=== PATIENT | female | born 1975 | race Two or more races ===

== ENCOUNTER 2020-05-17 08:23 | Inpatient (IN) | payer OTHER ==
[~2020-05-17] VITALS: Ht 167.6 cm; Wt 59.0 kg
[2020-05-17 08:25] VITALS: BP 157/99
--- NOTE | 2020-05-17 08:25 | NUR ---
ED Nurse Note: Pt brought in by ambulance from [facility] d/t 60 second seizure witnessed by staff. Pt A+Ox3 upon arrival. Per EMS, staff at [facility] denies head trauma/oral trauma. Pt has no hx of seizures, but is on multiple psych medications. Respirations even and unlabored on room air. Hr elevated on the monitor @ 110 beats/min. All other vitals stable as documented. Seizure precautions in place.
--- NOTE | 2020-05-17 08:27 | Emergency Room Report ---
History of Present Illness General Chief Complaint: Seizure Source: Patient, EMS Present Illness HPI Disclaimer: Please note that this report is being documented using DRAGON technology. This can lead to erroneous entry secondary to incorrect interpretation by the dictating instrument. HPI: 44-year-old female history of psychiatric disorder presents for evaluation of seizure-like activity. EMS picked patient up from [facility]. Staff stated the patient was somnolent and difficult to arouse this morning. In the room she was clenching her fist and then had a brief 1 minute episode of convulsion-like behavior mostly in the upper extremities. No trauma was reported as this occurred on the patient's bed. She was somnolent and lethargic following this shaking. No incontinence. No history of seizures. No reported alcohol or drug use. Patient is somewhat slow to respond and appears confused though states she is not in any pain or takes any medication for seizures. Denies prior history of seizures. Denies numbness or tingling. Is able to move all extremities. PMH: Schizophrenia PSH: Reviewed Allergies: Reviewed Social Hx: Denied Allergies: Coded Allergies: No Known Allergies (Unverified , 05/17/20) COVID-19 Screening Contact w/high risk pt: No Experienced COVID-19 symptoms?: No COVID-19 Testing performed [employer]: No Review of Systems All Other Systems: negative except mentioned in HPI Physical Exam Vital Signs Date Time Temp Pulse Resp B/P (MAP) Pulse Ox O2 Delivery O2 Flow Rate FiO2 05/17/20 08:18 98.8 80 16 128/58 (81) 100 Room Air General: Awake, slow to respond, GCS 15 HEENT: NC/AT. EOMI. PERRLA. Small tongue abrasion Cardiovascular: RRR. S1 and S2 normal. No murmur appreciated Resp: Normal work of breathing. No cough, wheezing or crackles appreciated Abdomen: Abdomen is soft, nondistended. Nontender Skin: Intact. No abrasions, laceration or rash over the exposed skin MSK: Normal tone and bulk. Moving all extremities. No obvious deformity. Neuro: Awake, slow to respond though mentating appropriately. GCS 15 Medical Decision Making Diagnostic Impression: Primary Impression: Opiate use Additional Impressions: Seizure-like activity UTI (urinary tract infection) Altered mental status ER Course There is a 44-year-old female with history of schizophrenia presenting from [facility] for convulsions. Differential includes was not limited to seizure, electrolyte abnormality, intracranial injury, toxicologic affect, psychiatric disorder among others. Patient does have a small abrasion at the tip of her tongue that does not require repair. No incontinence and no prior history of seizures. Accu-Chek on arrival 117. EKG is nonischemic. As this may be a first-time seizure CT head was ordered. No obvious injury identified. Labs showed questionable urinary tract infection and the patient was treated with Keflex. Also positive for opiates on tox screen. Discussed with patient's [facility], [facility], who stated her mentation has been off since returning from [facility] yesterday. States she is more lethargic and has never had a seizure before today. She seems more confused than usual. Was unable to ambulate this morning. Patient remains tachycardic and seemingly confused. May be effects of opiates however she has no signs of respiratory depression. Will admit for further monitoring and treatment. Admitted to panel physician, Dr. Fajardo Laboratory Tests Test 05/17/20 08:27 05/17/20 08:30 White Blood Count 14.7 K/UL (4.8-10.8) H Red Blood Count 4.40 M/UL (4.20-5.40) Hemoglobin 10.2 G/DL (12.0-16.0) L Hematocrit 34.7 % (37.0-47.0) L Mean Corpuscular Volume 79 FL (80-99) L Mean Corpuscular Hemoglobin 23.1 PG (27.0-31.0) L Mean Corpuscular Hemoglobin Concent 29.3 G/DL (32.0-36.0) L Red Cell Distribution Width 19.8 % (11.6-14.8) H Platelet Count 495 K/UL (150-450) H Mean Platelet Volume 6.2 FL (6.5-10.1) L Neutrophils (%) (Auto) % (45.0-75.0) Lymphocytes (%) (Auto) % (20.0-45.0) Monocytes (%) (Auto) % (1.0-10.0) Eosinophils (%) (Auto) % (0.0-3.0) Basophils (%) (Auto) % (0.0-2.0) Differential Total Cells Counted 100 Neutrophils % (Manual) 83 % (45-75) H Lymphocytes % (Manual) 10 % (20-45) L Monocytes % (Manual) 7 % (1-10) Eosinophils % (Manual) 0 % (0-3) Basophils % (Manual) 0 % (0-2) Band Neutrophils 0 % (0-8) Platelet Estimate Adequate Platelet Morphology Normal Hypochromasia 1+ Anisocytosis 2+ Sodium Level 136 MMOL/L (136-145) Potassium Level 3.5 MMOL/L (3.5-5.1) Chloride Level 100 MMOL/L (98-107) Carbon Dioxide Level 27 MMOL/L (21-32) Anion Gap 9 mmol/L (5-15) Blood Urea Nitrogen 13 mg/dL (7-18) Creatinine 0.8 MG/DL (0.55-1.30) Estimated Glomerular Filtration Rate > 60 mL/min (>60) Glucose Level 124 MG/DL (74-106) H Calcium Level 8.9 MG/DL (8.5-10.1) Total Bilirubin 0.3 MG/DL (0.2-1.0) Aspartate Amino Transferase (AST) 20 U/L (15-37) Alanine Aminotransferase (ALT) 23 U/L (12-78) Alkaline Phosphatase 161 U/L (46-116) H Troponin I 0.007 ng/mL (0.000-0.056) Total Protein 6.9 G/DL (6.4-8.2) Albumin 2.7 G/DL (3.4-5.0) L Globulin 4.2 g/dL Albumin/Globulin Ratio 0.6 (1.0-2.7) L Salicylates Level 0.7 ug/mL (2.8-20) L Acetaminophen Level < 2 MCG/ML (10-30) L Serum Alcohol < 3 mg/dL Urine Color Yellow Urine Appearance Slightly cloudy Urine pH 5 (4.5-8.0) Urine Specific [place] 1.025 (1.005-1.035) Urine Protein 2+ (NEGATIVE) H Urine Glucose (UA) Negative (NEGATIVE) Urine Ketones 1+ (NEGATIVE) H Urine Blood 1+ (NEGATIVE) H Urine Nitrite Negative (NEGATIVE) Urine Bilirubin Negative (NEGATIVE) Urine Urobilinogen 1 MG/DL (0.0-1.0) H Urine Leukocyte Esterase 2+ (NEGATIVE) H Urine RBC 0-2 /HPF (0 - 2) Urine WBC 5-10 /HPF (0 - 2) H Urine Squamous Epithelial Cells Many /LPF (NONE/OCC) H Urine Bacteria Few /HPF (NONE) Urine HCG, Qualitative Negative (NEGATIVE) Urine Opiates Screen Positive (NEGATIVE) H Urine Barbiturates Screen Negative (NEGATIVE) Phencyclidine (PCP) Screen Negative (NEGATIVE) Urine Amphetamines Screen Negative (NEGATIVE) Urine Benzodiazepines Screen Negative (NEGATIVE) Urine Cocaine Screen Negative (NEGATIVE) Urine Marijuana (THC) Screen Negative (NEGATIVE) EKG Diagnostic Results Troponin ordered: Yes When was troponin ordered?: May 17, 2020 EKG Time: 08:33 Rate: normal Rhythm: NSR ST Segments: no acute changes Other Impression Sinus rhythm, normal axis, normal intervals, no ST segment changes, QTC 449 ms Rhythm Strip Diag. Results Rhythm Strip Time: 08:33 EP Interpretation: yes Rate: 90s Rhythm: NSR, no PVC's, no ectopy Last Vital Signs Date Time Temp Pulse Resp B/P (MAP) Pulse Ox O2 Delivery O2 Flow Rate FiO2 05/17/20 08:18 98.8 80 16 128/58 (81) 100 Room Air Disposition: ADMITTED INPATIENT Condition: Stable Scripts Levetiracetam (KEPPRA) 500 Mg Tablet 500 MG ORAL EVERY 12 HOURS, #60 TAB 0 Refills Prov: Jordin Andrews MD 05/17/20 Cephalexin* (KEFLEX*) 500 Mg Capsule 500 MG ORAL EVERY 12 HOURS, #14 CAP 0 Refills Prov: Jordin Andrews MD 05/17/20 Jordin Andrews MD May 17, 2020 08:27
[2020-05-17] MEDS ORDERED: levETIRAcetam 1,000mg/NS100ml 100 ML IVPB ONE ×2 (08:30→08:38)
[2020-05-17] MEDS ORDERED: LEVETIRACETAM IVPB ONE (08:37)
[2020-05-17] MEDS ORDERED: [UNRECOGNIZED DRUG - OTHER] IVPB ONE (08:37)
[2020-05-17 08:46] LABS: HEMATOCRIT 34.7 % (37.0-47.0); HEMOGLOBIN 10.2 G/DL (12.0-16.0); MEAN CORPUSCULAR VOLUME 79 FL (80-99); PLATELET COUNT 495 K/UL (150-450); RED CELL DISTRIBUTION WIDTH 19.8 % (11.6-14.8); WHITE BLOOD COUNT 14.7 K/UL (4.8-10.8)
[2020-05-17 08:59] LABS: ANION GAP 9 mmol/L (5-15); BLOOD UREA NITROGEN 13 mg/dL (7-18); CALCIUM 8.9 MG/DL (8.5-10.1); CARBON DIOXIDE 27 MMOL/L (21-32); CHLORIDE 100 MMOL/L (98-107); CREATININE 0.8 MG/DL (0.55-1.30); POTASSIUM 3.5 MMOL/L (3.5-5.1); SODIUM 136 MMOL/L (136-145)
[2020-05-17 09:03] LABS: ALANINE AMINOTRANSFERASE 23 U/L (12-78); ALBUMIN 2.7 G/DL (3.4-5.0); ALBUMIN/GLOBULIN RATIO 0.6 (1.0-2.7); ALKALINE PHOSPHATASE 161 U/L (46-116); ASPARTATE AMINO TRANSFERASE 20 U/L (15-37); BILIRUBIN,TOTAL 0.3 MG/DL (0.2-1.0)
[2020-05-17 09:15] LABS: APPEARANCE,URINE SLIGHTLY CLOUDY; BILIRUBIN, URINE NEGATIVE (NEGATIVE); GLUCOSE, URINE (UA) NEGATIVE (NEGATIVE); KETONES,URINE 1+ (NEGATIVE); LEUKOCYTE ESTERASE ,URINE 2+ (NEGATIVE); NITRITE,URINE NEGATIVE (NEGATIVE); PH,URINE 5 (4.5-8.0); PROTEIN,URINE 2+ (NEGATIVE); UROBILINOGEN,URINE 1 MG/DL (0.0-1.0)
[2020-05-17 09:25] LABS: COLOR,URINE YELLOW
--- NOTE | 2020-05-17 09:31 | NUR ---
ED Nurse Note: Pt diaphoretic and HR increased to 118. Pt still A+Ox3. ED MD @ bedside aware.
[2020-05-17 10:30] VITALS: BP 148/92
[2020-05-17] MEDS ORDERED: CEPHALEXIN500 MG ORAL (12:19)
[2020-05-17] MEDS ORDERED: KEPPRA500 M4 ORAL (12:19)
--- NOTE | 2020-05-17 12:24 | NUR ---
ED Nurse Note: Digna Larsen, pt's sister [phone] Julia Mac, ict managers [phone]
[2020-05-17 12:30] VITALS: BP_SYST 141; BP_SYST 161; BP_DIAS 84
[2020-05-17] MEDS ORDERED: Cephalexin 500mg cap ORAL ONE (12:30)
[2020-05-17 14:30] VITALS: BP 167/88
--- NOTE | 2020-05-17 15:32 | Diagnostic Imaging Report ---
Indications: Seizure Technique: Spiral acquisitions obtained through the brain. Angled axial and coronal 5 x 5 mm slices were reconstructed. Total dose length product 1098 mGycm. CTDI vol(s) 53 mGy. Dose reduction achieved using automated exposure control Comparison: None. Findings: Acute intracranial hemorrhage or edema. No mass effect or midline shift. Mild prominence of the extra-axial CSF spaces. Mastoids are clear. The calvarium is intact. Visualized orbits and sinuses are unremarkable. The tucker-white differentiation is normal Impression: Negative for acute intracranial bleed or mass effect This agrees with the preliminary interpretation provided by Dr. Zabala The CT scanner at [facility] is accredited by the [employer] and the scans are performed using protocols designed to limit radiation exposure to as low as reasonably achievable to attain images of sufficient resolution adequate for diagnostic evaluation.
--- NOTE | 2020-05-17 16:13 | NUR ---
ED Nurse Note: Report given to DIANE Mcfadden on 2E.
--- NOTE | 2020-05-17 16:25 | NUR ---
ED Nurse Note: pt transferred safely to 2E on the monitor.
--- NOTE | 2020-05-17 17:17 | NUR ---
NURSE NOTES: Recvd patient report from Katherine LARA-RN. Pt arrived tot he floor at 1645 via [facility]. Admitting Dr. Fajardo DX: Seizures. Pt was placed on cardiac tech, SR noted HR 85. Pt states no history of seizures. Pad rails padded. Seizure and fall precautions maintained. Pt is on room air with no sign of sob or resp distress with O2 sat 95%. Pt is c/o bilat leg pain 10/10. Skin was assessed, no areas of concern noted. Pt is verbally expressive but answers are delayed. Pt appears AOx4 and able to answer questions appropriately. Only home med per patient is for schizophrenia but does not remember the name of medication. Contacted DR Fajardo for admitting orders. VSS. Bed in lowest locked position. call light within reach, awaiting new orders.
--- NOTE | 2020-05-17 17:45 | History and Physical Report ---
DATE OF ADMISSION: 05/17/2020 REASON FOR ADMISSION: Seizures. HISTORY OF PRESENT ILLNESS: The patient is a 44-year-old female with a history of psychiatric disorder, brought in for possible seizures. The patient was noted to be somnolent, difficult to arouse. The patient was apparently clenching fists and was noted to have 1 minute convulsions. No history of prior seizures. No alcohol use. PAST MEDICAL HISTORY: Schizophrenia. MEDICATIONS: Reviewed. SOCIAL HISTORY: Resides in a [facility]. ALLERGIES: None reported. REVIEW OF SYSTEMS: Difficult to obtain. PHYSICAL EXAMINATION: GENERAL: A well-developed female. The patient is somewhat tachycardic. VITAL SIGNS: Heart rate 123, blood pressure 167/88, temperature 98.3. HEENT: Negative. NECK: Supple. LUNGS: Tachycardia. ABDOMEN: Soft, nontender. EXTREMITIES: No edema. NEUROLOGICAL: Somewhat confused. LABORATORY DATA: Reviewed. White count 14.7, hemoglobin 10.2. Electrolytes fairly negative. Albumin is 2.7. Head CT negative for intracranial bleed. IMPRESSION: 1. New-onset seizure of unclear etiology. 2. Leukocytosis of unclear etiology. 3. Tox screen negative with the exception of opioids. 4. Sinus tachycardia. 5. Schizophrenia. RECOMMENDATIONS: The patient is given Keppra. We will continue seizure precautions. EEG. Psychiatric evaluation. Ativan p.r.n. Stabilize and discharge the patient back to [facility] versus intermediate. Maikel Fajardo M.D. DR: OLIVIA JOB#: [id number] CC: DARYL
[2020-05-17] MEDS ORDERED: LORazepam Inj 2mg/ml 1ml IV PRN (19:00)
--- NOTE | 2020-05-17 19:45 | NUR ---
NURSE NOTES: The patient is alert and able to communicate her needs with a slurry voice. He does not seem to be in any acute distress and is on room air with resp even and unlabored. The skin is intact she was help with turning and repositioning as indicated. The bed in low level and call light within esy reach. will continue to monitor as indicated
[2020-05-17 20:00] VITALS: BP 151/87
[2020-05-17] MEDS: Cefepime HCl 1 GM in D5W 55 ML IVPB SCH (21:17)
[2020-05-18] VITALS: BP 142/71
--- NOTE | 2020-05-18 00:07 | Psychiatry Consultation ---
Psychiatry Consultation Psychiatry Consultation Chief Complaint: Seizure History of Present Illness: 44-year-old female with a history of opiate dependence, depression who has been admitted to the hospital for medical stabilization. She has had seizure activity. Patient is more alert today and able to answer simple questions, less confusion. forgetful. PAST PSYCHIATRIC HISTORY: Depression, anxiety, cognitive impairment. PAST MEDICAL HISTORY: Seizure disorder, schizophrenia, pneumonia. ALLERGIES: No known drug allergies. SUBSTANCE ABUSE HISTORY: No known history of illicit drug use or alcohol. MENTAL STATUS EXAMINATION: The patient has waxing and waning consciousness. Mood is disoriented to situation. Mood is neutral to anxious. Affect is constricted, congruent with mood. Thought process is concrete. Thought content, no suicidal or homicidal ideation. Cognition is impaired. Insight and judgment is impaired. ASSESSMENT: [place] I Acute toxic encephalopathy due to UTI and pneumonia. Schizophrenia. [place] II Deferred. [place] III Seizure, UTI, and pneumonia. [place] IV Low. [place] V 20. PLAN: 1. Low-dose of antipsychotics. 2. Ativan p.r.n. 3. We will continue to follow and readjust the medication Allergies: Coded Allergies: No Known Allergies (Unverified , 05/17/20) Medication History Scheduled Cephalexin* (Keflex*), 500 MG ORAL EVERY 12 HOURS Levetiracetam (Keppra), 500 MG ORAL EVERY 12 HOURS Objective Data Height (Feet): 5 Height (Inches): 6.00 Weight (Pounds): 130 Ana Lopez MD May 18, 2020 00:07
[2020-05-18 04:00] VITALS: BP 139/69
--- NOTE | 2020-05-18 05:40 | NUR ---
NURSE NOTES: Episodes of agitations and restless was noted but a calm environment was provided as indicated. she was also clean and dry. will continue to monitor
[2020-05-18 06:45] LABS: HEMATOCRIT 36.4 % (37.0-47.0); HEMOGLOBIN 10.4 G/DL (12.0-16.0); MEAN CORPUSCULAR VOLUME 80 FL (80-99); PLATELET COUNT 605 K/UL (150-450); RED BLOOD COUNT 4.55 M/UL (4.20-5.40); RED CELL DISTRIBUTION WIDTH 19.8 % (11.6-14.8); WHITE BLOOD COUNT 19.4 K/UL (4.8-10.8)
[2020-05-18 06:55] LABS: ANION GAP 12 mmol/L (5-15); BLOOD UREA NITROGEN 13 mg/dL (7-18); CALCIUM 8.5 MG/DL (8.5-10.1); CARBON DIOXIDE 24 MMOL/L (21-32); CHLORIDE 107 MMOL/L (98-107); CREATININE 0.8 MG/DL (0.55-1.30); POTASSIUM 3.1 MMOL/L (3.5-5.1); SODIUM 143 MMOL/L (136-145)
--- NOTE | 2020-05-18 07:10 | NUR ---
NURSE HAND-OFF REPORT: Important Events on Shift: Patient Status: Diet: Pending Orders: Pending Results/Labs: Pending MD notification: Latest Vital Signs: Temperature 98.7 , Pulse 124 , B/P 139 /69 , Respiratory Rate 18 , O2 SAT 97 , Room Air, O2 Flow Rate . Vital Sign Comment: EKG Rhythm: Sinus Tachycardia Rhythm change?: N MD Notified?: - MD Response: Latest Funez Fall Score: 70 Fall Risk: High Risk Safety Measures: Call light Within Reach, Bed Alarm Zone 1, Side Rails Side Rails x2, Bed position Low and Locked. Fall Precautions: Yellow Socks Yellow Gown Door Sign Patient Fall Education Report given to .
--- NOTE | 2020-05-18 07:36 | NUR ---
Patient was seen in bed in stabel. semifowlers position with seizure precaution measures in place. Bed was placed in lowest position with side rails up x3.
[2020-05-18 08:00] VITALS: BP 140/94
--- NOTE | 2020-05-18 08:20 | General Progress Note ---
Subjective Allergies: Coded Allergies: No Known Allergies (Unverified , 05/17/20) Subjective confused off oxygen psych noted Objective Last 24 Hour Vital Signs Date Time Temp Pulse Resp B/P (MAP) Pulse Ox O2 Delivery O2 Flow Rate FiO2 05/18/20 04:00 124 05/18/20 04:00 98.7 95 18 139/69 (92) 97 05/18/20 00:00 98.4 118 20 142/71 (94) 97 05/17/20 21:00 Room Air 05/17/20 20:00 124 05/17/20 20:00 99.1 118 21 151/87 (108) 97 05/17/20 16:46 Room Air 05/17/20 16:25 98.6 119 18 158/84 99 Room Air 05/17/20 14:30 98.3 123 18 167/88 98 Room Air 05/17/20 12:30 97.5 122 18 161/84 98 Room Air 05/17/20 10:30 97.9 118 18 148/92 97 Room Air 05/17/20 08:25 110 20 Room Air 05/17/20 08:25 98.5 110 20 157/99 99 Room Air Intake and Output 05/17/20 05/18/20 19:00 07:00 Intake Total 100 ml 120 ml Output Total 60 ml 320 ml Balance 40 ml -200 ml Intake Oral 120 ml IV Total 100 ml Output Urine Total 60 ml 320 ml # Voids 1 Laboratory Tests 05/17/20 08:27: White Blood Count 14.7H, Red Blood Count 4.40, Hemoglobin 10.2L, Hematocrit 34.7L, Mean Corpuscular Volume 79L, Mean Corpuscular Hemoglobin 23.1L, Mean Corpuscular Hemoglobin Concent 29.3L, Red Cell Distribution Width 19.8H, Platelet Count 495H, Mean Platelet Volume 6.2L, Neutrophils (%) (Auto) , Lymphocytes (%) (Auto) , Monocytes (%) (Auto) , Eosinophils (%) (Auto) , Basophils (%) (Auto) , Differential Total Cells Counted 100, Neutrophils % (Manual) 83H, Lymphocytes % (Manual) 10L, Monocytes % (Manual) 7, Eosinophils % (Manual) 0, Basophils % (Manual) 0, Band Neutrophils 0, Platelet Estimate Adequate, Platelet Morphology Normal, Hypochromasia 1+, Anisocytosis 2+, Sodium Level 136, Potassium Level 3.5, Chloride Level 100, Carbon Dioxide Level 27, Anion Gap 9, Blood Urea Nitrogen 13, Creatinine 0.8, Estimat Glomerular Filtration Rate > 60, Glucose Level 124H, Calcium Level 8.9, Total Bilirubin 0.3, Aspartate Amino Transf (AST/SGOT) 20, Alanine Aminotransferase (ALT/SGPT) 23, Alkaline Phosphatase 161H, Troponin I 0.007, Total Protein 6.9, Albumin 2.7L , Globulin 4.2, Albumin/Globulin Ratio 0.6L, Salicylates Level 0.7L, Acetaminop hen Level < 2L, Serum Alcohol < 3 05/17/20 08:30: Urine Color Yellow, Urine Appearance Slightly cloudy, Urine pH 5, Urine Specific [place] 1.025, Urine Protein 2+H, Urine Glucose (UA) Negative, Urine Ketones 1+H , Urine Blood 1+H, Urine Nitrite Negative, Urine Bilirubin Negative, Urine Urobilinogen 1H, Urine Leukocyte Esterase 2+H, Urine RBC 0-2, Urine WBC 5-10H, Urine Squamous Epithelial Cells ManyH, Urine Bacteria Few, Urine HCG, Qualitative Negative, Urine Opiates Screen PositiveH, Urine Barbiturates Screen Negative, Phencyclidine (PCP) Screen Negative, Urine Amphetamines Screen Negative, Urine Benzodiazepines Screen Negative, Urine Cocaine Screen Negative, Urine Marijuana (THC) Screen Negative 05/18/20 05:31: White Blood Count 19.4H, Red Blood Count 4.55, Hemoglobin 10.4L, Hematocrit 36.4L, Mean Corpuscular Volume 80, Mean Corpuscular Hemoglobin 22.9L, Mean Corpuscular Hemoglobin Concent 28.6L, Red Cell Distribution Width 19.8H, Platelet Count 605H, Mean Platelet Volume 6.0L, Neutrophils (%) (Auto) , Lymphocytes (%) (Auto) , Monocytes (%) (Auto) , Eosinophils (%) (Auto) , Basophils (%) (Auto) , Neutrophils % (Manual) [Pending], Lymphocytes % (Manual) [Pending], Platelet Estimate [Pending], Platelet Morphology [Pending], Sodium Level 143, Potassium Level 3.1L, Chloride Level 107, Carbon Dioxide Level 24, Anion Gap 12, Blood Urea Nitrogen 13, Creatinine 0.8, Estimat Glomerular F iltration Rate > 60, Glucose Level 115H, Calcium Level 8.5 Height (Feet): 5 Height (Inches): 6.00 Weight (Pounds): 130 Objective WDWN NAD clear breath sounds bilaterally without rhonchi or wheeze [id number] without MRG NABS nontender no HSM no CCE confused reduced ROM Assessment/Plan Assessment/Plan: schizophrenia seizure toxic met encephalopathy elevated WBC PLAN ID to see antibiotics seizure meds and precautions psych follow up impression, plan, and exam edited and reviewed in detail care discussed with Maikel Walters MD May 18, 2020 08:20
[2020-05-18] MEDS: Cefepime HCl 1 GM in D5W 55 ML IVPB SCH ×2 (08:43→20:20)
[2020-05-18] MEDS ORDERED: Varibar Honey 250ml MC PRN (09:30)
[2020-05-18] MEDS ORDERED: Varibar Thin Liquid powder 148gm MC PRN (09:30)
[2020-05-18] MEDS ORDERED: Varibar Pudding 230ml MC PRN (09:30)
[2020-05-18] MEDS ORDERED: Varibar Nectar 240ml MC PRN (09:30)
--- NOTE | 2020-05-18 09:55 | NUR ---
PT EVALUATION NOTE Patient seen for initial evaluation and treatment initiated. Patient presents with generalized weakness and decreased balance and safety awareness which impairs patient's ability to perform mobility tasks safely. Patient is at high risk for falls. Patient requires max assist for bed mobility and transfers. Patient able to take several small steps with assist, poor balance. Patient will benefit from skilled inpatient PT intervention to improve strength and postural stability to improve level of functional mobility and to decrease fall risk. Recommend discharge to SNF vs return to [facility] depending on patient's progress once medically cleared by MD. Addendum: 05/18/20 at 1057 by LORETTA SANCHEZ PT Amended: Links added.
[2020-05-18] MEDS: Vancomycin 1gm in D5W 275ml IVPB SCH ×2 (10:38→23:21)
[2020-05-18 12:00] VITALS: BP 121/85
--- NOTE | 2020-05-18 12:07 | NUR ---
NURSE NOTES: Spoke to patients next of kin Digna Stanford over phone about patients condition, medications being given and todays plan for the patient.
--- NOTE | 2020-05-18 12:45 | Consultation ---
DATE OF CONSULTATION: 05/18/2020 INFECTIOUS DISEASE CONSULTATION CONSULTING PHYSICIAN: Melvin Rabago MD. REFERRING PHYSICIAN: Maikel Fajardo MD. REASON FOR CONSULTATION: Leukocytosis. HISTORY OF PRESENTING ILLNESS: This is a 44-year-old lady with history of schizophrenia who came in for possible seizures. She was found to have leukocytosis and an Infectious Diseases consultation has been obtained for antibiotics. PAST MEDICAL HISTORY: History of schizophrenia. SOCIAL HISTORY: Unknown. FAMILY HISTORY: Unknown. REVIEW OF SYSTEMS: Unable to obtain currently. MEDICATIONS: As an inpatient, she is on IV vancomycin, Protonix, cefepime, Keppra, lorazepam, Mylanta, Tylenol, Ativan. ALLERGIES: No known drug allergies. PHYSICAL EXAMINATION: VITAL SIGNS: Temperature 98.7, T-max of 99.1, pulse of 121, respiratory rate of 18, blood pressure of 139/69. O2 saturation of 97% on room air. HEENT: Pupils are equally reactive to light and accommodation. Mouth appears clean without thrush. NECK: Supple. No adenopathy. No JVD. CARDIOVASCULAR: She is tachycardic. No murmurs. LUNGS: Clear to auscultation bilaterally. No crackles. No wheezes. ABDOMEN: Soft, nontender. No organomegaly. EXTREMITIES: No cyanosis, no clubbing, no edema. LABORATORY DATA: White count 19.4, hemoglobin 10.4, hematocrit 36.4, MCV 80, platelet count 605,000. Neutrophils of 84%. Sodium 143, potassium 3.1, chloride 107, bicarb 24, BUN 13, creatinine 0.8. Glucose 115. Calcium 8.5. Total bilirubin 0.3, AST 20, ALT 23, alkaline phosphatase 161. Troponin 0.007. Total protein 6.9, albumin 2.7. UA showing 5 to 10 white cells. Urine cultures are negative. CT head showing negative for bleed or mass effect. ASSESSMENT: This is a 44-year-old lady with history of schizophrenia, who comes in and is found to have increasing leukocytosis could be secondary to, 1. Urinary tract infection. 2. Would like to rule out pneumonia as a possibility. 3. History of schizophrenia. PLAN: 1. Continue IV vancomycin and cefepime. 2. We will order chest x-ray. 3. We will follow up on blood cultures and urine culture. I would like to thank Dr. Fajardo for this consultation. Melvin Rabago M.D. DR: JOCE JOB#: [id number] CC:
--- NOTE | 2020-05-18 13:38 | NUR ---
RADIOLOGY DEPT., CHEST X-RAY DONE.-P.DYE
--- NOTE | 2020-05-18 13:40 | NUR ---
NURSE NOTES: Patient given prn Ativan due to seizure activity, patient was seen trembling and stating, "I am having a seizure". Seizure precautions and measures in place.
--- NOTE | 2020-05-18 15:14 | Diagnostic Imaging Report ---
Indication: Cough Technique: One view of the chest Comparison: none Findings: Low lung volumes. There is infiltrate at the left lung base. There is also likely some atelectasis. The heart size is normal. Impression: Left basilar infiltrate and atelectasis
[2020-05-18 16:00] VITALS: BP 140/89
--- NOTE | 2020-05-18 18:37 | NUR ---
Speech Pathology Note (Bedside Dysphagia Evaluation) Brief Note: Ms. Larsen is a 44 year old female who was brought in [facility] ED from boarding care due to seizure activity. CT head was negative, but found to be leukocytosis 14.7k with temperature of 98.8. Her BP is normal, and saturation is 100% on room air. Subsequently pt admitted [facility] for evaluation of seizure with leukocytosis yesterday. Today her temp range is 96.6~100.2 and leukocytosis is 19.4k. PMH: Schizophrenia Findings: Ms. Larsen is awake. She is oriented to self, name of hospital and year. Her responses are moderately delay but answer is quite accurate. She was able to follow simple commands. Her speech is clear, and voice is adamaris. She asked for water with ice. Given her approximately 150cc of iced water with a straw, she was able to drink without s.s of aspiration or dysphagia. I was reported that she had an episode of pocketing food today, but not coughing or choking. Interpretation: 1. Functional swallow without s.s of aspiration -Source of infection is less likely aspiration -Aspiration precaution when patient seizes 2. Pocketing food likely due to sedative/seizure medication Demian Garcia
--- NOTE | 2020-05-18 18:58 | NUR ---
NURSE NOTES: Patient had a slight fever of 100.[address] Fajardo was notified for pharmacological intervention and cooling measures were put in place. The patient was also hypertensive during 1200 and 1600 vitals. MD was also made aware and clonidine was ordered for SBP > 150.
--- NOTE | 2020-05-18 19:24 | NUR ---
NURSE HAND-OFF REPORT: Important Events on Shift:[patient had symptoms of seizure ativan given, patient had slight fever and cooling measures initiated, EEG done, Swallow evaluation done. ] Patient Status: [Stable/ full code] Diet: [Regular mechanical soft] Pending Orders: [N/A] Pending Results/Labs:[N/A] Pending MD notification:[N/A] Latest Vital Signs: Temperature 100.2 , Pulse 121 , B/P 140 /89 , Respiratory Rate 18 , O2 SAT 97 , Room Air, O2 Flow Rate . Vital Sign Comment: [] EKG Rhythm: Sinus Tachycardia Rhythm change?: N MD Notified?: - MD Response: Latest Funez Fall Score: 50 Fall Risk: High Risk Safety Measures: Call light Within Reach, Bed Alarm Zone 1, Side Rails Side Rails x2, Bed position Low and Locked. Fall Precautions: Yellow Socks Yellow Gown Door Sign Patient Fall Education Report given to [DIANE Vora].
--- NOTE | 2020-05-18 19:31 | NUR ---
NURSE NOTES: The patient is alert and able to communicate her needs and does not seem to be in any acute distress at this time. She is on room air with Resp even and unlabored. The resident has a Right AC 20g that is patent and asymptomatic. The skin is intact she was help with turning and repositioning as indicated. The bed in low level and call light within easy reach. will continue to monitor as indicated
[2020-05-18 20:00] VITALS: BP 130/90
[2020-05-18 21:21] LABS: CREATINE KINASE 1256 U/L (26-140)
[2020-05-19] VITALS: BP 138/91
[2020-05-19 04:00] VITALS: BP 160/101
[2020-05-19] MEDS: LORazepam Inj 2mg/ml 1ml IV PRN (04:49)
--- NOTE | 2020-05-19 05:00 | NUR ---
NURSE NOTES: The patient has episodes of anxiety and agitations and was unable to relaxed. She was given Ativan as indicated well tolerated. Will continue to monitor as indicated.
--- NOTE | 2020-05-19 07:20 | NUR ---
NURSE HAND-OFF REPORT: Important Events on Shift:Anxiety and agitations was noted Patient Status: Diet: Pending Orders: Pending Results/Labs: Pending MD notification: Latest Vital Signs: Temperature 98.8 , Pulse 119 , B/P 160 /101 , Respiratory Rate 20 , O2 SAT 97 , Room Air, O2 Flow Rate . Vital Sign Comment: EKG Rhythm: Sinus Tachycardia Rhythm change?: N MD Notified?: - MD Response: Latest Funez Fall Score: 50 Fall Risk: High Risk Safety Measures: Call light Within Reach, Bed Alarm Zone 1, Side Rails Side Rails x2, Bed position Low and Locked. Fall Precautions: Yellow Socks Yellow Gown Door Sign Patient Fall Education Report given to .
[2020-05-19 07:29] LABS: HEMATOCRIT 30.8 % (37.0-47.0); HEMOGLOBIN 9.4 G/DL (12.0-16.0); MEAN CORPUSCULAR VOLUME 73 FL (80-99); PLATELET COUNT 516 K/UL (150-450); RED CELL DISTRIBUTION WIDTH 20.2 % (11.6-14.8); WHITE BLOOD COUNT 21.2 K/UL (4.8-10.8)
--- NOTE | 2020-05-19 07:53 | NUR ---
NURSE NOTES: made am rounds, pt is asleep in bed. respiration is even and unlabored. no acute distress noted. side-rails padded for seizure precaution. call light within reach.
[2020-05-19 08:00] VITALS: BP 131/93
--- NOTE | 2020-05-19 08:30 | Consultation ---
DATE OF CONSULTATION: 05/18/2020 NEUROLOGICAL CONSULTATION CONSULTING PHYSICIAN: Del Golver MD. HISTORY OF PRESENT ILLNESS: This is a first [facility] admission for this 44-year-old woman, who is schizophrenic with a possible seizure beginning yesterday. The rest of the history is difficult to obtain. The patient apparently was noted at board and mcc, noted to be somnolent, difficult to arouse in the morning on May 17, 2020. She had clenched fist, with episode of convulsion in the upper extremity. She is somewhat somnolent and lethargic following shaking with no history of seizures. No alcohol or drug use. She is slow to respond, and confused. The patient had a head CT scan of the brain yesterday, which was negative for acute intracranial bleeding without contrast. it was normal. Yesterday, she did a CBC with a white count of 14,017 and platelet count is 795,000. There was a left shift. Today, the white count was 19,400. She then has a hypochromic anemia and left shit. The patient had urinalysis yesterday revealing 5 to 10 WBCs per high-powered field . EKG reveals the old sinus rhythm, cannot rule out inferior infarct, age indeterminate, anterior infarct age indeterminate. The patient was placed on cefepime 1 gram intravenous piggyback q.12 hours and given vancomycin 1 gram piggyback, given Protonix, lorazepam this morning. Apparently, she was seen by the staff shaking extremities , approximately 1 mg of Ativan was given at 12:20. She was also placed on Tylenol at 9 p.m.. No other history available. PAST MEDICAL HISTORY/PAST MEDICAL ILLNESSES: Schizophrenia . ALLERGIES: No known allergies noted. The patient had a psychiatric consultation today. possibly due to. The patient's chemistries on admission, sodium 136, the glucose 124, BUN of 13 with a creatinine of 0.8. Alkaline phosphatase is slightly elevated at 161. Calcium was normal magnesium not done. Today potassium is little low at 3.1. The troponin yesterday was 0.007. HABITS: No alcohol or tobacco use. REVIEW OF SYSTEMS: Unavailable. FAMILY HISTORY: Unavailable. REVIEW OF SYSTEMS: Unavailable. PHYSICAL EXAMINATION: GENERAL: She is a well-developed, cachectic appearing woman, lying in bed, lethargic, answers questions slowly. VITAL SIGNS: Temperature is 96.6, pulse is 114, respirations 19, blood pressure is 168/99. HEENT: Mucous membranes appear to be dry. NECK: The neck was stiff in all 4 directions. Carotids are +2 without bruits. There is no tenderness noted. LUNGS: Clear to auscultation. CARDIOVASCULAR: PMI is not felt. JVP is probably normal. The patient had normal S1, S2 physiologically split. There is no S3, S4, murmurs, or rubs appreciated. ABDOMEN: Bowel sounds are decreased. There is no tenderness masses organomegaly BACK: There is no tenderness to percussion or muscle spasm. EXTREMITIES: Pulses are +2. No edema noted. NEUROLOGIC: MENTAL STATUS: The patient is lethargic. answering questions. Doesnt know date knows she is in [facility]. CRANIAL NERVE EXAMINATION: CRANIAL NERVE II: Visual cline are intact to confrontation. CRANIAL NERVES III, IV, AND : Extraocular motility is full. Pupils are dilated and sluggishly reactive to light. CRANIAL NERVE V: Facial and corneal sensations are intact to fine touch. CRANIAL NERVE VII: Facial strength is 5/5 bilaterally. CRANIAL NERVE VIII: Auditory acuity is intact bilaterally. CRANIAL NERVES IX AND X: Not tested. CRANIAL NERVE XI: Sternocleidomastoid strength is 5/5. CRANIAL NERVE XII: Tongue protrudes in the midline partially without fasciculations or atrophy. MUSCLE EXAMINATION: Muscle bulk is symmetrically decreased to normal. Tone is normal. Strength, she can move arms legs flexed no movement i There is no grasp. Biceps, triceps, and the deltoids are probably normal. significant tremor was noted. Muscle tone in the legs was increased and it was fairly bilaterally symmetrical. Reflexes: Trace to +1 without clonus toes downgoing. IMPRESSION AND PLAN: The patient has metabolic encephalopathy related to her pneumonia, urinary problem and urinary tract infection as well as Ativan, which is going to earlier today. It is hard to say that she actually had a seizure, but she might also be postictal. The patient has a strong sympathetic response with some dilated pupils and diaphoresis, probably this is related to infection. The patient has not been on any antipsychotic drugs or do not have a history. Serotonin syndrome is unlikely as well as malignant neuroleptics syndrome. What I would do is, I am going to continue her keppra. Thepatient may had a pseudoseizure this afternoon which she allegedly did not lose consciousness. However what I would do is temporarily, I will place her on Keppra 500 mg b.i.d. I will get a serum calcium. Obviously, her pneumonia has to be aggressively reated 1. The plan is the patient's serum magnesium . 2. eeg. 3. CPK level. Del Glover MD DR: KOFI JOB#: [id number] CC: DARYL
[2020-05-19] MEDS: Cefepime HCl 1 GM in D5W 55 ML IVPB SCH (09:20)
[2020-05-19] MEDS: Vancomycin 1gm in D5W 275ml IVPB SCH (10:38)
--- NOTE | 2020-05-19 10:46 | NUR ---
CASE MANAGEMENT:REVIEW 44 YR OLD FEMALE BIBA FROM [facility] CC: SEIZURES SI: NEW ONSET SEIZURES LEUKOCYTOSIS. UTI 98.5 110 20 157/99 99% ON RA WBC+21.2 TCK+1256 IS: IV KEPPRA X1 1L NS BOLUS KEFLEX PO X1 : TO TELEMETRY UNIT PLAN: EEG PT EVAL SWALLOW EVAL SEIZURE PRECAUTIONS
--- NOTE | 2020-05-19 11:12 | Infectious Diseases Prog Note ---
Assessment/Plan Assessment/Plan antibiotics : vancomycin, cefepime A 1. gram positive UTI 2. pneumonia 3. seizures 4. leucocytosis increased 5. schizophrenia P 1. continue iv vancomycin 2. start zosyn 3. d/c cefepime 4. will follow up cultures Subjective Constitutional: Denies: fever, chills Respiratory: Denies: shortness of breath, dry cough Gastrointestinal/Abdominal: Denies: nausea, vomiting, diarrhea Musculoskeletal: Reports: pain Allergies: Coded Allergies: No Known Allergies (Unverified , 05/17/20) Objective Last 24 Hour Vital Signs Date Time Temp Pulse Resp B/P (MAP) Pulse Ox O2 Delivery O2 Flow Rate FiO2 05/19/20 08:00 97.7 95 20 131/93 (106) 100 05/19/20 08:00 95 05/19/20 04:48 160/101 05/19/20 04:00 118 05/19/20 04:00 98.8 119 20 160/101 (120) 97 05/19/20 00:00 98.6 113 19 138/91 (107) 96 05/19/20 00:00 113 05/18/20 21:00 Room Air 05/18/20 20:00 121 05/18/20 20:00 98.5 117 21 130/90 (103) 97 05/18/20 16:00 100.2 111 18 140/89 (106) 97 05/18/20 16:00 121 05/18/20 12:59 114 19 168/99 96 05/18/20 12:29 114 19 168/99 96 05/18/20 12:00 116 05/18/20 12:00 96.6 104 19 121/85 (97) 96 Height (Feet): 5 Height (Inches): 6.00 Weight (Pounds): 130 Respiratory/Chest: lungs clear Cardiovascular: normal rate, regular rhythm, no gallop/murmur Abdomen: soft, non tender Extremities: no edema Microbiology Date/Time Source Procedure Growth Status 05/17/20 18:51 Urine,Clean Catch Urine Culture - Final Gram Positive Cocci Complete 05/17/20 14:15 Rectum - Final NO CARBAPENEM-RESISTANT ENTEROBACTERI... Complete 05/17/20 14:15 Nasal Nares MRSA Culture - Final NO METHICILLIN RESISTANT STAPH AUREUS... Complete Laboratory Tests Test 05/18/20 19:30 05/19/20 05:38 Magnesium Level 2.1 MG/DL (1.8-2.4) Total Creatine Kinase 1256 U/L (26-140) H White Blood Count 21.2 K/UL (4.8-10.8) H Red Blood Count 4.20 M/UL (4.20-5.40) Hemoglobin 9.4 G/DL (12.0-16.0) L Hematocrit 30.8 % (37.0-47.0) L Mean Corpuscular Volume 73 FL (80-99) #L Mean Corpuscular Hemoglobin 22.5 PG (27.0-31.0) L Mean Corpuscular Hemoglobin Concent 30.6 G/DL (32.0-36.0) L Red Cell Distribution Width 20.2 % (11.6-14.8) H Platelet Count 516 K/UL (150-450) H Mean Platelet Volume 6.1 FL (6.5-10.1) L Neutrophils (%) (Auto) % (45.0-75.0) Lymphocytes (%) (Auto) % (20.0-45.0) Monocytes (%) (Auto) % (1.0-10.0) Eosinophils (%) (Auto) % (0.0-3.0) Basophils (%) (Auto) % (0.0-2.0) Differential Total Cells Counted 100 Neutrophils % (Manual) 87 % (45-75) H Lymphocytes % (Manual) 8 % (20-45) L Monocytes % (Manual) 5 % (1-10) Eosinophils % (Manual) 0 % (0-3) Basophils % (Manual) 0 % (0-2) Band Neutrophils 0 % (0-8) Platelet Estimate Increased H Platelet Morphology Normal Polychromasia 1+ Hypochromasia 1+ Anisocytosis 3+ Microcytosis 1+ Ovalocytes Occasional Current Medications Medications (Trade) Dose Ordered Sig/Laura Route PRN Reason Start Time Stop Time Status Last Admin Dose Admin Acetaminophen (Tylenol) 650 mg Q4H PRN ORAL Mild Pain (Pain Scale 1-3) 05/17/20 18:45 06/16/20 18:44 Al Hydroxide/Mg Hydroxide (Mylanta) 30 ml Q6H PRN ORAL heartburn 05/17/20 18:45 06/16/20 18:44 Barium Sulfate (Varibar Honey) 250 ml NOW PRN MC RAD 05/18/20 09:30 05/21/20 09:28 Barium Sulfate (Varibar [place]) 240 ml NOW PRN MC RAD 05/18/20 09:30 05/21/20 09:28 Barium Sulfate (Varibar Pudding) 230 ml NOW PRN MC RAD 05/18/20 09:30 05/21/20 09:28 Barium Sulfate (Varibar Thin Liquid powder) 148 gm NOW PRN MC RAD 05/18/20 09:30 05/21/20 09:28 Cefepime HCl 1 gm/ Dextrose 55 ml @ 110 mls/hr EVERY 12 HOURS IVPB 05/17/20 21:00 05/24/20 20:59 05/19/20 09:20 Clonidine HCl (Catapres Tab) 0.1 mg Q4H PRN ORAL For High Blood Pressure 05/18/20 19:00 08/16/20 18:59 05/19/20 04:48 Levetiracetam (Keppra) 500 mg Q12HR ORAL 05/17/20 21:00 07/01/20 20:59 05/19/20 09:20 Lorazepam (Ativan 2mg/ml 1ml) 1 mg Q4H PRN IV For Anxiety 05/17/20 18:45 05/24/20 18:44 05/19/20 04:49 Lorazepam (Ativan 2mg/ml 1ml) 1 mg Q4H PRN IV seizures 05/17/20 19:00 05/24/20 18:59 05/18/20 12:29 Pantoprazole (Protonix) 40 mg DAILY ORAL 05/18/20 09:00 06/17/20 08:59 05/19/20 09:20 Vancomycin HCl (Vanco pharmacy to dose) 1 ea DAILY PRN MISC Per rx protocol 05/18/20 08:30 06/17/20 08:29 Vancomycin HCl 1 gm/Dextrose 275 ml @ 183.708 mls/hr Q12H IVPB 05/18/20 10:00 05/23/20 09:59 05/19/20 10:38 Melvin Rabago MD May 19, 2020 11:12
--- NOTE | 2020-05-19 11:53 | General Progress Note ---
Subjective Allergies: Coded Allergies: No Known Allergies (Unverified , 05/17/20) Subjective confused off oxygen psych noted wbc still high Objective Last 24 Hour Vital Signs Date Time Temp Pulse Resp B/P (MAP) Pulse Ox O2 Delivery O2 Flow Rate FiO2 05/19/20 08:00 97.7 95 20 131/93 (106) 100 05/19/20 08:00 95 05/19/20 04:48 160/101 05/19/20 04:00 118 05/19/20 04:00 98.8 119 20 160/101 (120) 97 05/19/20 00:00 98.6 113 19 138/91 (107) 96 05/19/20 00:00 113 05/18/20 21:00 Room Air 05/18/20 20:00 121 05/18/20 20:00 98.5 117 21 130/90 (103) 97 05/18/20 16:00 100.2 111 18 140/89 (106) 97 05/18/20 16:00 121 05/18/20 12:59 114 19 168/99 96 05/18/20 12:29 114 19 168/99 96 05/18/20 12:00 116 05/18/20 12:00 96.6 104 19 121/85 (97) 96 Intake and Output 05/18/20 05/19/20 19:00 07:00 Intake Total 100 ml 450 ml Output Total 200 ml 210 ml Balance -100 ml 240 ml Intake Oral 100 ml 450 ml Output Urine Total 200 ml 210 ml # Voids 1 Laboratory Tests 05/18/20 19:30: Magnesium Level 2.1, Total Creatine Kinase 1256H 05/19/20 05:38: White Blood Count 21.2H, Red Blood Count 4.20, Hemoglobin 9.4L, Hematocrit 30.8L , Mean Corpuscular Volume 73#L, Mean Corpuscular Hemoglobin 22.5L, Mean Corpuscular Hemoglobin Concent 30.6L, Red Cell Distribution Width 20.2H, Platelet Count 516H, Mean Platelet Volume 6.1L, Neutrophils (%) (Auto) , Lymphocytes (%) (Auto) , Monocytes (%) (Auto) , Eosinophils (%) (Auto) , Basophils (%) (Auto) , Differential Total Cells Counted 100, Neutrophils % (Manual) 87H, Lymphocytes % (Manual) 8L, Monocytes % (Manual) 5, Eosinophils % (Manual) 0, Basophils % (Manual) 0, Band Neutrophils 0, Platelet Estimate IncreasedH, Platelet Morphology Normal, Polychromasia 1+, Hypochromasia 1+, Anisocytosis 3+, Microcytosis 1+, Ovalocytes Occasional Height (Feet): 5 Height (Inches): 6.00 Weight (Pounds): 130 Objective WDWN NAD clear breath sounds bilaterally without rhonchi or wheeze [id number] without MRG NABS nontender no HSM no CCE confused reduced ROM Assessment/Plan Assessment/Plan: schizophrenia seizure toxic met encephalopathy elevated WBC possible pneumonia possible uti PLAN ID noted antibiotics seizure meds and precautions psych follow up dc once improved likely needs snf impression, plan, and exam edited and reviewed in detail care discussed with Maikel Walters MD May 19, 2020 11:53
[2020-05-19 12:00] VITALS: BP 132/96
[2020-05-19] MEDS: Piperacillin/Tazobactam 3.375 GM in NS 110 ML IVPB SCH ×2 (14:08→22:11)
--- NOTE | 2020-05-19 14:39 | NUR ---
DISCHARGE PLANNING SW received a call from pt's high risk case manager, Tina Ibrahim from [employer] , confirmed that pt can return to her current facility: [facility] [address] [place] [address] # [phone] The facility may not answer d/t holiday. However, the facility is expecting pt. Tina will not available this week d/t holiday. Per Tina, SNF placement is acceptable if recommended.
--- NOTE | 2020-05-19 14:43 | NUR ---
INSURANCE CLINICALS/REVIEW FAXED TO [facility] [phone]
[2020-05-19 16:00] VITALS: BP 138/69
--- NOTE | 2020-05-19 18:17 | NUR ---
NURSE HAND-OFF REPORT: Important Events on Shift:N/A Patient Status: ASLEEP AND AROUSABLE; CONFUSED SOMETIMES Diet: MECHANICAL SOFT Pending Orders:N/A Pending Results/Labs:N/A Pending MD notification:N/A Latest Vital Signs: Temperature 98.7 , Pulse 100 , B/P 138 /69 , Respiratory Rate 18 , O2 SAT 96 , Room Air, O2 Flow Rate . Vital Sign Comment: STABLE EKG Rhythm: Sinus Rhythm Rhythm change?: N MD Notified?: - MD Response: Latest Funez Fall Score: 50 Fall Risk: High Risk Safety Measures: Call light Within Reach, Bed Alarm Zone 1, Side Rails Side Rails x2, Bed position Low and Locked. Fall Precautions: Yellow Socks Yellow Gown Door Sign Patient Fall Education Report given to . Addendum: 05/19/20 at 1935 by Joaquim Pardo RN HAND-OFF: Report given to Nic.
--- NOTE | 2020-05-19 19:20 | NUR ---
NURSE NOTES: Report received from DIANE March. Patient in bed alert and oriented x2 to 3 with periods of confusion and disorientation. Call light in reach and bed at lowest position locked with side rails up. Patient on fall seizure and aspiration precautions. Will continue with plan of care.
[2020-05-19 20:00] VITALS: BP 127/52
--- NOTE | 2020-05-19 20:29 | Electroencephalogram ---
DATE OF PROCEDURE: 05/18/2020 REQUESTING PHYSICIAN: Del Glover MD. READING PHYSICIAN: Dalton Kelley MD. DATE OF TRACIN05/18/2020. HISTORY: This EEG was performed on a 44-year-old lady with a history of schizophrenia and questionable seizures. The purpose of this EEG was to evaluate the patient for the degree and type of cerebral dysfunction. TECHNICAL NOTE: This EEG was performed on a [facility] with electrodes placed on the scalp according to the international 10-20 system. [id number] and [id number] montages were used. The EEG was technically satisfactory and was performed in the awake and drowsy states. OBSERVATIONS: In the best awake state, the background activity consisted of 6.5 to 7 hertz posterior rhythmic theta activity. Drowsiness was characterized by irregular 4 to 5 hertz theta with intermixed delta frequencies. No focal abnormalities or epileptiform discharges were seen. IMPRESSION: This is an abnormal EEG characterized by slowing of the background in the 6.5 to 7 hertz theta range in the best awake state. COMMENT: The study is consistent with an encephalopathy of a moderate degree. Clinical correlation is recommended. Dalton Kelley M.D. DR: EMANUEL JOB#: [id number] CC:
--- NOTE | 2020-05-19 22:39 | Psychiatric Progress Note ---
Psychiatry Progress Note Psychiatry Progress Note Medications Current Medications Medications (Trade) Dose Ordered Sig/Laura Route PRN Reason Start Time Stop Time Status Last Admin Dose Admin Acetaminophen (Tylenol) 650 mg Q4H PRN ORAL Mild Pain (Pain Scale 1-3) 05/17/20 18:45 06/16/20 18:44 Al Hydroxide/Mg Hydroxide (Mylanta) 30 ml Q6H PRN ORAL heartburn 05/17/20 18:45 06/16/20 18:44 Barium Sulfate (Varibar Honey) 250 ml NOW PRN MC RAD 05/18/20 09:30 05/21/20 09:28 Barium Sulfate (Varibar [place]) 240 ml NOW PRN MC RAD 05/18/20 09:30 05/21/20 09:28 Barium Sulfate (Varibar Pudding) 230 ml NOW PRN RAD 05/18/20 09:30 05/21/20 09:28 Barium Sulfate (Varibar Thin Liquid powder) 148 gm NOW PRN RAD 05/18/20 09:30 05/21/20 09:28 Clonidine HCl (Catapres Tab) 0.1 mg Q4H PRN ORAL For High Blood Pressure 05/18/20 19:00 08/16/20 18:59 05/19/20 04:48 Levetiracetam (Keppra) 500 mg Q12HR ORAL 05/17/20 21:00 07/01/20 20:59 05/19/20 22:11 Lorazepam (Ativan 2mg/ml 1ml) 1 mg Q4H PRN IV For Anxiety 05/17/20 18:45 05/24/20 18:44 05/19/20 04:49 Lorazepam (Ativan 2mg/ml 1ml) 1 mg Q4H PRN IV seizures 05/17/20 19:00 05/24/20 18:59 05/18/20 12:29 Pantoprazole (Protonix) 40 mg DAILY ORAL 05/18/20 09:00 06/17/20 08:59 05/19/20 09:20 Piperacillin Sod/ Tazobactam Sod 3.375 gm/Sodium Chloride 110 ml @ 27.5 mls/hr EVERY 8 HOURS IVPB 05/19/20 14:00 05/24/20 13:59 05/19/20 22:11 Vancomycin HCl (Vanco pharmacy to dose) 1 ea DAILY PRN MISC Per rx protocol 05/18/20 08:30 06/17/20 08:29 Vancomycin HCl 1 gm/Dextrose 275 ml @ 183.708 mls/hr Q8H IVPB 05/19/20 23:00 05/24/20 22:59 Allergies: Coded Allergies: No Known Allergies (Unverified , 05/17/20) Objective Data Height (Feet): 5 Height (Inches): 6.00 Weight (Pounds): 130 General Appearance: WD/WN, no apparent distress, alert Additional Comments: waxing and waning consciousness. Mood is disoriented to situation. Mood is neutral to anxious. Affect is constricted, congruent with mood. Thought process is concrete. Thought content, no suicidal or homicidal ideation. Cognition is impaired. Insight and judgment is impaired. ASSESSMENT: [place] I Acute toxic encephalopathy due to UTI and pneumonia. Schizophrenia. [place] II Deferred. [place] III Seizure, UTI, and pneumonia. [place] IV Low. Raymond V 20. PLAN: 1. Low-dose of antipsychotics. 2. Ativan p.r.n. 3. We will continue to follow and readjust the medications. Ana Lopez MD May 19, 2020 22:39
--- NOTE | 2020-05-19 23:30 | Consultation ---
DATE OF CONSULTATION: 05/19/2020 CONSULTING PHYSICIAN: Ana Lopez MD HISTORY OF PRESENT ILLNESS: This is a 44-year-old female with a history of opiate dependence, depression who has been admitted to the hospital for medical stabilization. She has had seizure activity. Patient is more alert today and able to answer simple questions, less confusion. forgetful. PAST PSYCHIATRIC HISTORY: Depression, anxiety, cognitive impairment. PAST MEDICAL HISTORY: Seizure disorder, schizophrenia, pneumonia. ALLERGIES: No known drug allergies. SUBSTANCE ABUSE HISTORY: No known history of illicit drug use or alcohol. MENTAL STATUS EXAMINATION: The patient has waxing and waning consciousness. Mood is disoriented to situation. Mood is neutral to anxious. Affect is constricted, congruent with mood. Thought process is concrete. Thought content, no suicidal or homicidal ideation. Cognition is impaired. Insight and judgment is impaired. ASSESSMENT: [place] I Acute toxic encephalopathy due to UTI and pneumonia. Schizophrenia. [place] II Deferred. [place] III Seizure, UTI, and pneumonia. [place] IV Low. [place] V 20. PLAN: 1. Low-dose of antipsychotics. 2. Ativan p.r.n. 3. We will continue to follow and readjust the medications. Ana Lopez M.D. DR: UMM JOB#: [id number] CC:
[2020-05-20] VITALS: BP 134/86
--- NOTE | 2020-05-20 | NUR ---
NURSE NOTES: received report from torsten frank. patient is on bed, awake. confused. on room air. no sob. iv access on the right hand running zosyn. padded side rails for seizure precautions. per zac, "no seizure activity on her shift and unable to give vanco ivpb due to zosyn that is currently running." 3.1 level of potassium,md is aware with NNO as stated by zac. reiterated to call and ask for assistance to prevent fall or injury. call light and light button within easy reach. bed locked and in lowest position. bed alarm on. will continue plan of care.
--- NOTE | 2020-05-20 | NUR ---
HAND-OFF: Report given to DIANE Gutierrez. Patient stable alert and oriented x2 to 3. Remains at baseline. No Seizures at this time. Side rails padded. Medication administered as ordered. Endorsed plan of care.
[2020-05-20] MEDS: Vancomycin 1gm in D5W 275ml IVPB SCH ×3 (00:48→15:29)
[2020-05-20 04:00] VITALS: BP 117/90
[2020-05-20] MEDS: Piperacillin/Tazobactam 3.375 GM in NS 110 ML IVPB SCH ×3 (06:04→21:27)
--- NOTE | 2020-05-20 06:48 | NUR ---
NURSE HAND-OFF: Important Events on Shift: safety, seizure precautions.atb's Patient Status: stable Diet: regular mech soft ground Pending Orders: vanco trough @ 2200 Pending Results/Labs: Pending MD notification: Latest Vital Signs: Temperature 97.7 , Pulse 88 , B/P 117 /90 , Respiratory Rate 20 , O2 SAT 98 , Room Air, O2 Flow Rate . Vital Sign Comment: Latest Funez Fall Score: 50 Fall Risk: High Risk Safety Measures: Call light Within Reach, Bed Alarm Zone 1, Side Rails Side Rails x2, Bed position Low and Locked. Fall Precautions: Yellow Socks Yellow Gown Door Sign Patient Fall Education
--- NOTE | 2020-05-20 07:35 | NUR ---
NURSE NOTES: Received report from Brenda/DIANE. Pt in bed lying semi-fowlers. On room air, no distress or SOB noted. IV on right hand 22G and left hand 22G, patent and clean. Bed in the lowest position and locked, call light within reach. Seizures precautions taken. Side rails up X3. Will continue plan of care. Addendum: 05/20/20 at 0741 by Julia Wilkerson RN HAND-OFF: Report given to diane crews.
[2020-05-20 08:00] VITALS: BP 117/80
--- NOTE | 2020-05-20 08:28 | General Progress Note ---
Subjective Allergies: Coded Allergies: No Known Allergies (Unverified , 05/17/20) Subjective confused off oxygen psych noted wbc still high, repeat pending Objective Last 24 Hour Vital Signs Date Time Temp Pulse Resp B/P (MAP) Pulse Ox O2 Delivery O2 Flow Rate FiO2 05/20/20 04:00 97.7 88 20 117/90 (99) 98 05/20/20 03:45 104 05/20/20 00:00 97.9 111 20 134/86 (102) 97 05/19/20 23:32 97 05/19/20 21:00 Room Air 05/19/20 20:00 97.7 66 28 127/52 (77) 99 05/19/20 20:00 120 05/19/20 16:00 98.7 101 18 138/69 (92) 96 05/19/20 16:00 100 05/19/20 12:00 96.7 114 19 132/96 (108) 95 05/19/20 12:00 100 05/19/20 09:00 Room Air Intake and Output 05/19/20 05/20/20 19:00 07:00 Intake Total 400 ml 717.416 ml Output Total 250 ml 450 ml Balance 150 ml 267.416 ml Intake Oral 400 ml 350 ml IV Total 367.416 ml Output Urine Total 250 ml 450 ml Laboratory Tests 05/19/20 21:10: Vancomycin Level Trough 9.4 Height (Feet): 5 Height (Inches): 6.00 Weight (Pounds): 130 Objective WDWN NAD clear breath sounds bilaterally without rhonchi or wheeze [id number] without MRG NABS nontender no HSM no CCE confused reduced ROM Assessment/Plan Assessment/Plan: schizophrenia seizure toxic met encephalopathy elevated WBC possible pneumonia possible uti EEG with diffuse slowing PLAN ID noted antibiotics seizure meds and precautions psych follow up dc once improved likely needs snf impression, plan, and exam edited and reviewed in detail care discussed with Maikel Walters MD May 20, 2020 08:28
[2020-05-20 10:43] LABS: HEMOGLOBIN 9.9 G/DL (12.0-16.0); MEAN CORPUSCULAR VOLUME 74 FL (80-99); PLATELET COUNT 607 K/UL (150-450); RED BLOOD COUNT 4.43 M/UL (4.20-5.40); RED CELL DISTRIBUTION WIDTH 20.1 % (11.6-14.8)
[2020-05-20 10:48] LABS: WHITE BLOOD COUNT 22.1 K/UL (4.8-10.8)
[2020-05-20 12:00] VITALS: BP 119/68
--- NOTE | 2020-05-20 13:06 | Infectious Diseases Prog Note ---
Assessment/Plan Assessment/Plan A 1. UTI 2. pneumonia 3. seizures 4. leucocytosis increased 5. schizophrenia 6. Toxic encephalopathy P 1. continue iv vancomycin & Zosyn 2. will follow up cultures Subjective ROS Limited/Unobtainable: Yes Respiratory: Reports: no symptoms Genitourinary: Reports: no symptoms Allergies: Coded Allergies: No Known Allergies (Unverified , 05/17/20) Objective Last 24 Hour Vital Signs Date Time Temp Pulse Resp B/P (MAP) Pulse Ox O2 Delivery O2 Flow Rate FiO2 05/20/20 12:00 97.7 80 21 119/68 (85) 97 05/20/20 12:00 105 05/20/20 09:00 Room Air 05/20/20 08:00 96.7 71 19 117/80 (92) 98 05/20/20 08:00 94 05/20/20 04:00 97.7 88 20 117/90 (99) 98 05/20/20 03:45 104 05/20/20 00:00 97.9 111 20 134/86 (102) 97 05/19/20 23:32 97 05/19/20 21:00 Room Air 05/19/20 20:00 97.7 66 28 127/52 (77) 99 05/19/20 20:00 120 05/19/20 16:00 98.7 101 18 138/69 (92) 96 05/19/20 16:00 100 Height (Feet): 5 Height (Inches): 6.00 Weight (Pounds): 130 General Appearance: no acute distress HEENT: mucous membranes moist Respiratory/Chest: lungs clear Cardiovascular: normal rate Abdomen: soft, non tender Extremities: no edema Neurologic/Psychiatric: alert, responsive Musculoskeletal: atrophy Microbiology Date/Time Source Procedure Growth Status 05/18/20 08:40 Blood Blood Culture - Preliminary NO GROWTH AFTER 24 HOURS Resulted 05/18/20 08:30 Blood Blood Culture - Preliminary NO GROWTH AFTER 24 HOURS Resulted 05/17/20 18:51 Urine,Clean Catch Urine Culture - Final Gram Positive Cocci Complete 05/17/20 14:15 Rectum VRE Culture - Final Enterococcus Faecalis - Vre Complete 05/17/20 14:15 Rectum - Final NO CARBAPENEM-RESISTANT ENTEROBACTERI... Complete 05/17/20 14:15 Nasal Nares MRSA Culture - Final NO METHICILLIN RESISTANT STAPH AUREUS... Complete Laboratory Tests Test 05/19/20 21:10 05/20/20 10:20 Vancomycin Level Trough 9.4 ug/mL (5.0-12.0) White Blood Count 22.1 K/UL (4.8-10.8) *H Red Blood Count 4.43 M/UL (4.20-5.40) Hemoglobin 9.9 G/DL (12.0-16.0) L Hematocrit 33.0 % (37.0-47.0) L Mean Corpuscular Volume 74 FL (80-99) L Mean Corpuscular Hemoglobin 22.3 PG (27.0-31.0) L Mean Corpuscular Hemoglobin Concent 29.9 G/DL (32.0-36.0) L Red Cell Distribution Width 20.1 % (11.6-14.8) H Platelet Count 607 K/UL (150-450) H Mean Platelet Volume 5.5 FL (6.5-10.1) L Neutrophils (%) (Auto) % (45.0-75.0) Lymphocytes (%) (Auto) % (20.0-45.0) Monocytes (%) (Auto) % (1.0-10.0) Eosinophils (%) (Auto) % (0.0-3.0) Basophils (%) (Auto) % (0.0-2.0) Differential Total Cells Counted 100 Neutrophils % (Manual) 80 % (45-75) H Lymphocytes % (Manual) 12 % (20-45) L Monocytes % (Manual) 8 % (1-10) Eosinophils % (Manual) 0 % (0-3) Basophils % (Manual) 0 % (0-2) Band Neutrophils 0 % (0-8) Platelet Estimate Increased H Platelet Morphology Normal Polychromasia 1+ Hypochromasia 1+ Anisocytosis 2+ Microcytosis 1+ Current Medications Medications (Trade) Dose Ordered Sig/Laura Route PRN Reason Start Time Stop Time Status Last Admin Dose Admin Acetaminophen (Tylenol) 650 mg Q4H PRN ORAL Mild Pain (Pain Scale 1-3) 05/17/20 18:45 06/16/20 18:44 05/20/20 11:47 Al Hydroxide/Mg Hydroxide (Mylanta) 30 ml Q6H PRN ORAL heartburn 05/17/20 18:45 06/16/20 18:44 Barium Sulfate (Varibar Honey) 250 ml NOW PRN RAD 05/18/20 09:30 05/21/20 09:28 Barium Sulfate (Varibar [place]) 240 ml NOW PRN RAD 05/18/20 09:30 05/21/20 09:28 Barium Sulfate (Varibar Pudding) 230 ml NOW PRN RAD 05/18/20 09:30 05/21/20 09:28 Barium Sulfate (Varibar Thin Liquid powder) 148 gm NOW PRN RAD 05/18/20 09:30 05/21/20 09:28 Clonidine HCl (Catapres Tab) 0.1 mg Q4H PRN ORAL For High Blood Pressure 05/18/20 19:00 08/16/20 18:59 05/19/20 04:48 Levetiracetam (Keppra) 500 mg Q12HR ORAL 05/17/20 21:00 07/01/20 20:59 05/20/20 08:47 Lorazepam (Ativan 2mg/ml 1ml) 1 mg Q4H PRN IV For Anxiety 05/17/20 18:45 05/24/20 18:44 05/19/20 04:49 Lorazepam (Ativan 2mg/ml 1ml) 1 mg Q4H PRN IV seizures 05/17/20 19:00 05/24/20 18:59 05/18/20 12:29 Pantoprazole (Protonix) 40 mg DAILY ORAL 05/18/20 09:00 06/17/20 08:59 05/20/20 08:47 Piperacillin Sod/ Tazobactam Sod 3.375 gm/Sodium Chloride 110 ml @ 27.5 mls/hr EVERY 8 HOURS IVPB 05/19/20 14:00 05/24/20 13:59 05/20/20 12:57 Risperidone (RisperDAL) 1 mg BEDTIME ORAL 05/20/20 21:00 07/04/20 20:59 Vancomycin HCl (Vanco pharmacy to dose) 1 ea DAILY PRN MISC Per rx protocol 05/18/20 08:30 06/17/20 08:29 Vancomycin HCl 1 gm/Dextrose 275 ml @ 183.708 mls/hr Q8H IVPB 05/19/20 23:00 05/24/20 22:59 05/20/20 06:05 Cuauhtemoc Colindres MD May 20, 2020 13:06
[2020-05-20 16:00] VITALS: BP 117/90
--- NOTE | 2020-05-20 19:43 | NUR ---
NURSE HAND-OFF REPORT: Important Events on Shift: Patient Status: Stable Diet: regular mech-soft ground Pending Orders: Pending Results/Labs: Pending MD notification: Latest Vital Signs: Temperature 98.1 , Pulse 103 , B/P 117 /90 , Respiratory Rate 20 , O2 SAT 95 , Room Air, O2 Flow Rate . Vital Sign Comment: stable EKG Rhythm: Sinus Tachycardia Rhythm change?: N MD Notified?: N - MD Response: Latest Funez Fall Score: 50 Fall Risk: High Risk Safety Measures: Call light Within Reach, Bed Alarm Zone 1, Side Rails Side Rails x2, Bed position Low and Locked. Fall Precautions: Yellow Socks Yellow Gown Door Sign Patient Fall Education Report given to Ana/DIANE.
--- NOTE | 2020-05-20 19:45 | NUR ---
NURSE NOTES : Important Events on Shift: Received report from Ivette Byrd RN. Pt in bed, stable, denies pain. no signs or symptoms of pain noted at this time. Will continue plan of care and close monitoring Patient Status: stable Diet: reg mech soft. 1:1 feed Pending Orders: none Pending Results/Labs: vanco trough Pending MD notification: none Latest Vital Signs: Temperature 98.2 , Pulse 100 , B/P 144 /96 , Respiratory Rate 20 , O2 SAT 97 , Room Air, O2 Flow Rate . Vital Sign Comment: EKG Rhythm: Sinus Tachycardia Rhythm change?: N MD Notified?: N - MD Response: Latest Funez Fall Score: 50 Fall Risk: High Risk Safety Measures: Call light Within Reach, Bed Alarm Zone 1, Side Rails Side Rails x2, Bed position Low and Locked. Fall Precautions: yes Yellow Socks yes Yellow Gown yes Door Sign yes Patient Fall Education yes
[2020-05-20 20:00] VITALS: BP 152/90
[2020-05-21] VITALS: BP 144/96
[2020-05-21] MEDS: Vancomycin 750mg/NS 275ml IVPB SCH ×4 (03:12→10:53)
[2020-05-21 04:00] VITALS: BP 152/99
[2020-05-21] MEDS: Piperacillin/Tazobactam 3.375 GM in NS 110 ML IVPB SCH ×3 (06:17→22:25)
[2020-05-21 07:07] LABS: HEMATOCRIT 31.3 % (37.0-47.0); HEMOGLOBIN 9.8 G/DL (12.0-16.0); MEAN CORPUSCULAR VOLUME 72 FL (80-99); PLATELET COUNT 643 K/UL (150-450); RED BLOOD COUNT 4.37 M/UL (4.20-5.40); RED CELL DISTRIBUTION WIDTH 20.3 % (11.6-14.8); WHITE BLOOD COUNT 18.4 K/UL (4.8-10.8)
--- NOTE | 2020-05-21 07:36 | NUR ---
CASE MANAGEMENT:REVIEW 05/21/20 SI: SEIZURE. TOXIC METABOLIC ENCEPHALOPATHY SCHIZOPHRENIA. PNA 97.9 106 24 152/99 97% ON RA WBC+18.4 IS: IV VANCOMYCIN Q8HRS IV ZOSYN Q8HRS KEPPRA PO Q12 TELEMETRY STATUS
--- NOTE | 2020-05-21 07:48 | NUR ---
NURSE HAND-OFF REPORT: Important Events on Shift: None Patient Status: none Diet: reg mech soft, 1:1 feed Pending Orders: none Pending Results/Labs: none Pending MD notification: none Latest Vital Signs: Temperature 97.9 , Pulse 106 , B/P 152 /99 , Respiratory Rate 24 , O2 SAT 97 , Room Air, O2 Flow Rate . Vital Sign Comment: EKG Rhythm: Sinus Rhythm Rhythm change?: N MD Notified?: N - MD Response: Latest Funez Fall Score: 50 Fall Risk: High Risk Safety Measures: Call light Within Reach, Bed Alarm Zone 1, Side Rails Side Rails x2, Bed position Low and Locked. Fall Precautions: Yellow Socks Yellow Gown Door Sign Patient Fall Education Report given to Jeannie Byrd RN.
--- NOTE | 2020-05-21 07:49 | NUR ---
NURSE NOTES: pt recieved from Mirna Melendez RN. Pt in bed resting, no sign of distress or pain at this time. Zpsyn running in right forearm. bed low and locked, call light within reach.
[2020-05-21 08:00] VITALS: BP_SYST 143; BP_SYST 168; BP_DIAS 61; BP_DIAS 70
--- NOTE | 2020-05-21 09:38 | General Progress Note ---
Subjective Allergies: Coded Allergies: No Known Allergies (Unverified , 05/17/20) Subjective confused off oxygen psych noted wbc still high, but improved Objective Last 24 Hour Vital Signs Date Time Temp Pulse Resp B/P (MAP) Pulse Ox O2 Delivery O2 Flow Rate FiO2 05/21/20 08:00 96.7 109 20 143/61 (88) 96 05/21/20 04:00 97 05/21/20 04:00 97.9 106 24 152/99 (116) 97 05/21/20 00:00 101 05/21/20 00:00 98.2 100 20 144/96 (112) 97 05/20/20 21:59 98.1 05/20/20 21:00 Room Air 05/20/20 20:00 98.9 105 18 152/90 (110) 96 05/20/20 16:00 103 05/20/20 16:00 98.1 88 20 117/90 (99) 95 05/20/20 12:00 97.7 80 21 119/68 (85) 97 05/20/20 12:00 105 Intake and Output 05/20/20 05/21/20 19:00 07:00 Intake Total 280 ml Output Total 1200 ml Balance -920 ml Intake Oral 280 ml Output Urine Total 1200 ml # Voids 5 Laboratory Tests 05/20/20 10:20: White Blood Count 22.1*H, Red Blood Count 4.43, Hemoglobin 9.9L, Hematocrit 33.0L, Mean Corpuscular Volume 74L, Mean Corpuscular Hemoglobin 22.3L, Mean Corpuscular Hemoglobin Concent 29.9L, Red Cell Distribution Width 20.1H, Platelet Count 607H, Mean Platelet Volume 5.5L, Neutrophils (%) (Auto) , Lymphocytes (%) (Auto) , Monocytes (%) (Auto) , Eosinophils (%) (Auto) , Basophils (%) (Auto) , Differential Total Cells Counted 100, Neutrophils % (Manual) 80H, Lymphocytes % (Manual) 12L, Monocytes % (Manual) 8, Eosinophils % (Manual) 0, Basophils % (Manual) 0, Band Neutrophils 0, Platelet Estimate IncreasedH, Platelet Morphology Normal, Polychromasia 1+, Hypochromasia 1+, Anisocytosis 2+, Microcytosis 1+ 05/20/20 22:00: Vancomycin Level Trough 22.2H 05/21/20 05:36: White Blood Count 18.4H, Red Blood Count 4.37, Hemoglobin 9.8L, Hematocrit 31.3L , Mean Corpuscular Volume 72L, Mean Corpuscular Hemoglobin 22.4L, Mean Corpuscular Hemoglobin Concent 31.3L, Red Cell Distribution Width 20.3H, Platelet Count 643H, Mean Platelet Volume 5.9L, Neutrophils (%) (Auto) , Lymphocytes (%) (Auto) , Monocytes (%) (Auto) , Eosinophils (%) (Auto) , Basophils (%) (Auto) , Neutrophils % (Manual) [Pending], Lymphocytes % (Manual) [Pending], Platelet Estimate [Pending], Platelet Morphology [Pending] Height (Feet): 5 Height (Inches): 6.00 Weight (Pounds): 130 Objective WDWN NAD clear breath sounds bilaterally without rhonchi or wheeze [id number] without MRG NABS nontender no HSM no CCE confused reduced ROM Assessment/Plan Assessment/Plan: schizophrenia seizure toxic met encephalopathy elevated WBC possible pneumonia possible uti EEG with diffuse slowing PLAN ID noted antibiotics seizure meds and precautions psych follow up dc once improved and cleared by ID likely needs snf impression, plan, and exam edited and reviewed in detail care discussed with Maikel Walters MD May 21, 2020 09:38
--- NOTE | 2020-05-21 10:52 | NUR ---
NURSE NOTES: Per pharmacist Tamara ok to give esperanza
--- NOTE | 2020-05-21 10:56 | Infectious Diseases Prog Note ---
Assessment/Plan Assessment/Plan antibiotics : vancomycin, zosyn A 1. gram positive UTI 2. pneumonia 3. seizures 4. leucocytosis improving 5. schizophrenia P 1. d/c iv vancomycin 2. continue zosyn 3. will follow up cultures Subjective Constitutional: Denies: fever, chills Respiratory: Denies: shortness of breath, dry cough Gastrointestinal/Abdominal: Denies: nausea, vomiting, diarrhea Musculoskeletal: Reports: pain Allergies: Coded Allergies: No Known Allergies (Unverified , 05/17/20) Objective Last 24 Hour Vital Signs Date Time Temp Pulse Resp B/P (MAP) Pulse Ox O2 Delivery O2 Flow Rate FiO2 05/21/20 09:00 Room Air 05/21/20 08:00 96.7 109 20 143/61 (88) 96 05/21/20 04:00 97 05/21/20 04:00 97.9 106 24 152/99 (116) 97 05/21/20 00:00 101 05/21/20 00:00 98.2 100 20 144/96 (112) 97 05/20/20 21:59 98.1 05/20/20 21:00 Room Air 05/20/20 20:00 98.9 105 18 152/90 (110) 96 05/20/20 16:00 103 05/20/20 16:00 98.1 88 20 117/90 (99) 95 05/20/20 12:00 97.7 80 21 119/68 (85) 97 05/20/20 12:00 105 Height (Feet): 5 Height (Inches): 6.00 Weight (Pounds): 130 Respiratory/Chest: lungs clear Cardiovascular: normal rate, regular rhythm, no gallop/murmur Abdomen: soft, non tender Extremities: no edema Laboratory Tests Test 05/20/20 22:00 05/21/20 05:36 Vancomycin Level Trough 22.2 ug/mL (5.0-12.0) H White Blood Count 18.4 K/UL (4.8-10.8) H Red Blood Count 4.37 M/UL (4.20-5.40) Hemoglobin 9.8 G/DL (12.0-16.0) L Hematocrit 31.3 % (37.0-47.0) L Mean Corpuscular Volume 72 FL (80-99) L Mean Corpuscular Hemoglobin 22.4 PG (27.0-31.0) L Mean Corpuscular Hemoglobin Concent 31.3 G/DL (32.0-36.0) L Red Cell Distribution Width 20.3 % (11.6-14.8) H Platelet Count 643 K/UL (150-450) H Mean Platelet Volume 5.9 FL (6.5-10.1) L Neutrophils (%) (Auto) % (45.0-75.0) Lymphocytes (%) (Auto) % (20.0-45.0) Monocytes (%) (Auto) % (1.0-10.0) Eosinophils (%) (Auto) % (0.0-3.0) Basophils (%) (Auto) % (0.0-2.0) Differential Total Cells Counted 100 Neutrophils % (Manual) 86 % (45-75) H Lymphocytes % (Manual) 7 % (20-45) L Monocytes % (Manual) 5 % (1-10) Eosinophils % (Manual) 2 % (0-3) Basophils % (Manual) 0 % (0-2) Band Neutrophils 0 % (0-8) Platelet Estimate Increased H Platelet Morphology Normal Polychromasia 1+ Hypochromasia 1+ Anisocytosis 1+ Current Medications Medications (Trade) Dose Ordered Sig/Laura Route PRN Reason Start Time Stop Time Status Last Admin Dose Admin Acetaminophen (Tylenol) 650 mg Q4H PRN ORAL Mild Pain (Pain Scale 1-3) 05/17/20 18:45 06/16/20 18:44 05/20/20 21:29 Al Hydroxide/Mg Hydroxide (Mylanta) 30 ml Q6H PRN ORAL heartburn 05/17/20 18:45 06/16/20 18:44 Clonidine HCl (Catapres Tab) 0.1 mg Q4H PRN ORAL For High Blood Pressure 05/18/20 19:00 08/16/20 18:59 05/19/20 04:48 Levetiracetam (Keppra) 500 mg Q12HR ORAL 05/17/20 21:00 07/01/20 20:59 05/21/20 07:59 Lorazepam (Ativan 2mg/ml 1ml) 1 mg Q4H PRN IV For Anxiety 05/17/20 18:45 05/24/20 18:44 05/19/20 04:49 Lorazepam (Ativan 2mg/ml 1ml) 1 mg Q4H PRN IV seizures 05/17/20 19:00 05/24/20 18:59 05/18/20 12:29 Pantoprazole (Protonix) 40 mg DAILY ORAL 05/18/20 09:00 06/17/20 08:59 05/21/20 07:59 Piperacillin Sod/ Tazobactam Sod 3.375 gm/Sodium Chloride 110 ml @ 27.5 mls/hr EVERY 8 HOURS IVPB 05/19/20 14:00 05/24/20 13:59 05/21/20 06:17 Risperidone (RisperDAL) 1 mg BEDTIME ORAL 05/20/20 21:00 07/04/20 20:59 05/20/20 21:28 Vancomycin HCl (Vanco pharmacy to dose) 1 ea DAILY PRN MISC Per rx protocol 05/18/20 08:30 06/17/20 08:29 Vancomycin HCl 750 mg/Sodium Chloride 275 ml @ 183.333 mls/hr Q8H IVPB 05/21/20 02:00 05/26/20 01:59 05/21/20 10:53 Melvin Rabago MD May 21, 2020 10:56
--- NOTE | 2020-05-21 11:28 | NUR ---
NURSE NOTES: pt transferred to 4 E. report given to Yessenia CONTRERAS. Pt stable. No distress noted. Bed plugged in, IV restarted, bed locked. Addendum: 05/21/20 at 1129 by Jeannie Cordero RN Belongings also taken up.
--- NOTE | 2020-05-21 11:49 | NUR ---
NURSE NOTES: Received report from DIANE Dennis. Patient seen lying in bed, awake, alert and oriented x3 with delayed response. Patient currently on room air, no s/sx of SOB/Distress, no c/o any pain or discomfort. Patient with side rails padded, iv line located on LFA gauge 22, patent, inplace and asymptomatic. All belongings checked and accounted for. Bed placed on lowest and locked, call light placed within reach and will continue to monitor for any changes in condition.
[2020-05-21 12:00] VITALS: BP 143/98
[2020-05-21 16:00] VITALS: BP 142/97
--- NOTE | 2020-05-21 16:12 | NUR ---
INSURANCE CLINICALS/REVIEW FAXED TO [facility] [phone]
--- NOTE | 2020-05-21 19:05 | NUR ---
NURSE HAND-OFF: Important Events on Shift:Transfer to unit, atb tx Patient Status: stable Diet: regular, mechanica soft Pending Orders: n/a Pending Results/Labs:n/a Pending MD notification:n/a Latest Vital Signs: Temperature 98.2 , Pulse 112 , B/P 142 /97 , Respiratory Rate 19 , O2 SAT 99 , Room Air, O2 Flow Rate . Vital Sign Comment: stable Latest Funez Fall Score: 50 Fall Risk: High Risk Safety Measures: Call light Within Reach, Bed Alarm Zone 1, Side Rails Side Rails x2, Bed position Low and Locked. Fall Precautions: Yellow Socks Yellow Gown Door Sign Patient Fall Education Report given to DIANE Casarez.
--- NOTE | 2020-05-21 19:11 | NUR ---
NURSE NOTES: Patient observed to be lying in bed with HOB elevated. Currently on room air, no s/sx of SOB/Distress, no c/o any pain or discomfort. Patient with siderails padded, seizure precautions. IV site located LFA gauge 22, line is asymptomatic, patent, intact. Bed placed on lowest and locked, call light placed within reach, and will continue to monitor for any changes in condition.
[2020-05-21 20:00] VITALS: BP 132/86
--- NOTE | 2020-05-21 23:37 | Psychiatric Progress Note ---
Psychiatry Progress Note Psychiatry Progress Note Medications Current Medications Medications (Trade) Dose Ordered Sig/Laura Route PRN Reason Start Time Stop Time Status Last Admin Dose Admin Acetaminophen (Tylenol) 650 mg Q4H PRN ORAL Mild Pain (Pain Scale 1-3) 05/17/20 18:45 06/16/20 18:44 05/20/20 21:29 Al Hydroxide/Mg Hydroxide (Mylanta) 30 ml Q6H PRN ORAL heartburn 05/17/20 18:45 06/16/20 18:44 Clonidine HCl (Catapres Tab) 0.1 mg Q4H PRN ORAL For High Blood Pressure 05/18/20 19:00 08/16/20 18:59 05/19/20 04:48 Levetiracetam (Keppra) 500 mg Q12HR ORAL 05/17/20 21:00 07/01/20 20:59 05/21/20 20:23 Lorazepam (Ativan 2mg/ml 1ml) 1 mg Q4H PRN IV For Anxiety 05/17/20 18:45 05/24/20 18:44 05/19/20 04:49 Lorazepam (Ativan 2mg/ml 1ml) 1 mg Q4H PRN IV seizures 05/17/20 19:00 05/24/20 18:59 05/18/20 12:29 Pantoprazole (Protonix) 40 mg DAILY ORAL 05/18/20 09:00 06/17/20 08:59 05/21/20 07:59 Piperacillin Sod/ Tazobactam Sod 3.375 gm/Sodium Chloride 110 ml @ 27.5 mls/hr EVERY 8 HOURS IVPB 05/19/20 14:00 05/24/20 13:59 05/21/20 22:25 Risperidone (RisperDAL) 1 mg BEDTIME ORAL 05/20/20 21:00 07/04/20 20:59 05/21/20 20:23 Neurological/Psychiatric: Reports: anxiety, depressed Allergies: Coded Allergies: No Known Allergies (Unverified , 05/17/20) Objective Data Height (Feet): 5 Height (Inches): 6.00 Weight (Pounds): 130 General Appearance: WD/WN, no apparent distress, alert Additional Comments: waxing and waning consciousness. Mood is disoriented to situation. Mood is neutral to anxious. Affect is constricted, congruent with mood. Thought process is concrete. Thought content, no suicidal or homicidal ideation. Cognition is impaired. Insight and judgment is impaired. ASSESSMENT: [place] I Acute toxic encephalopathy due to UTI and pneumonia. Schizophrenia. [place] II Deferred. [place] III Seizure, UTI, and pneumonia. [place] IV Low. [place] V 20. PLAN: 1. Low-dose of antipsychotics. 2. Ativan p.r.n. 3. We will continue to follow and readjust the medications. Ana Lopez MD May 21, 2020 23:37
[2020-05-22] VITALS (7 sets, daily range): BP systolic 119–170; BP diastolic 66–104
[2020-05-22] MEDS: Piperacillin/Tazobactam 3.375 GM in NS 110 ML IVPB SCH ×3 (05:40→21:09)
--- NOTE | 2020-05-22 07:16 | NUR ---
NURSE NOTES: Received report from DIANE Casarez. Patient observed to be asleep, lying in bed with HOB elevated. Currently on room air, no s/sx of SOB/Distress, no c/o any pain or discomfort. Patient with siderails padded. IV site located LFA gauge 22, line is asymptomatic, patent, inplace and intact. Bed placed on lowest and locked, call light placed within reach, and will continue to monitor for any changes in condition.
--- NOTE | 2020-05-22 07:39 | NUR ---
NURSE HAND-OFF: Important Events on Shift: Abx, turned and repositioned, kept clean and dry, BM large very dark almost black stool, abdomen slightly distended Patient Status: stable Diet: regular, mechanical soft Pending Orders: n/a Pending Results/Labs:n/a Pending MD notification:n/a Latest Vital Signs: Temperature 98.2 , Pulse 112 , B/P 142 /97 , Respiratory Rate 19 , O2 SAT 99 , Room Air, O2 Flow Rate . Vital Sign Comment: stable Latest Funez Fall Score: 50 Fall Risk: High Risk Safety Measures: Call light Within Reach, Bed Alarm Zone 1, Side Rails Side Rails x2, Bed position Low and Locked. Fall Precautions: Yellow Socks Yellow Gown Door Sign Patient Fall Education Report given to Cheyenne CONTRERAS
--- NOTE | 2020-05-22 13:09 | Pulmonology Progress Note ---
Subjective ROS Limited/Unobtainable: Yes Constitutional: Denies: fever, chills Gastrointestinal/Abdominal: Denies: nausea, vomiting, diarrhea Musculoskeletal: Reports: pain Allergies: Coded Allergies: No Known Allergies (Unverified , 05/17/20) Objective Last 24 Hour Vital Signs Date Time Temp Pulse Resp B/P (MAP) Pulse Ox O2 Delivery O2 Flow Rate FiO2 05/22/20 12:00 97.7 106 19 141/79 (99) 97 05/22/20 09:00 97.5 106 18 147/93 (111) 96 05/22/20 09:00 Room Air 05/22/20 08:02 170/104 05/22/20 08:00 97.3 113 18 170/104 (126) 96 05/22/20 04:00 97.9 114 19 119/66 (83) 98 05/22/20 00:00 96.7 102 19 146/90 (108) 98 05/21/20 21:00 Room Air 05/21/20 20:00 96.7 109 19 132/86 (101) 96 05/21/20 16:00 98.2 112 19 142/97 (112) 99 Intake and Output 05/21/20 05/22/20 19:00 07:00 Intake Total 300 ml Output Total 1000 ml Balance -700 ml Intake Oral 300 ml Output Urine Total 1000 ml # Voids 2 5 # Bowel Movements 1 4 Current Medications Medications (Trade) Dose Ordered Sig/Laura Route PRN Reason Start Time Stop Time Status Last Admin Dose Admin Acetaminophen (Tylenol) 650 mg Q4H PRN ORAL Mild Pain (Pain Scale 1-3) 05/17/20 18:45 06/16/20 18:44 05/20/20 21:29 Al Hydroxide/Mg Hydroxide (Mylanta) 30 ml Q6H PRN ORAL heartburn 05/17/20 18:45 06/16/20 18:44 Clonidine HCl (Catapres Tab) 0.1 mg Q4H PRN ORAL For High Blood Pressure 05/18/20 19:00 08/16/20 18:59 05/22/20 08:02 Levetiracetam (Keppra) 500 mg Q12HR ORAL 05/17/20 21:00 07/01/20 20:59 05/22/20 08:02 Lorazepam (Ativan 2mg/ml 1ml) 1 mg Q4H PRN IV For Anxiety 05/17/20 18:45 05/24/20 18:44 05/19/20 04:49 Lorazepam (Ativan 2mg/ml 1ml) 1 mg Q4H PRN IV seizures 05/17/20 19:00 05/24/20 18:59 05/18/20 12:29 Pantoprazole (Protonix) 40 mg DAILY ORAL 05/18/20 09:00 06/17/20 08:59 05/22/20 08:02 Piperacillin Sod/ Tazobactam Sod 3.375 gm/Sodium Chloride 110 ml @ 27.5 mls/hr EVERY 8 HOURS IVPB 05/19/20 14:00 05/24/20 13:59 05/22/20 05:40 Risperidone (RisperDAL) 1 mg BEDTIME ORAL 05/20/20 21:00 07/04/20 20:59 05/21/20 20:23 Assessment/Plan Assessment/Plan Progress Note Subjective Allergies: Coded Allergies: No Known Allergies (Unverified , 05/17/20) Subjective remains confused off oxygen psych noted wbc still high, but improved Objective Vital Signs noted Laboratory Tests 05/20/20 10:20: White Blood Count 22.1*H, Red Blood Count 4.43, Hemoglobin 9.9L, Hematocrit 33.0L, Mean Corpuscular Volume 74L, Mean Corpuscular Hemoglobin 22.3L, Mean Corpuscular Hemoglobin Concent 29.9L, Red Cell Distribution Width 20.1H, Platelet Count 607H, Mean Platelet Volume 5.5L, Neutrophils (%) (Auto) , Lymphocytes (%) (Auto) , Monocytes (%) (Auto) , Eosinophils (%) (Auto) , Basophils (%) (Auto) , Differential Total Cells Counted 100, Neutrophils % (Manual) 80H, Lymphocytes % (Manual) 12L, Monocytes % (Manual) 8, Eosinophils % (Manual) 0, Basophils % (Manual) 0, Band Neutrophils 0, Platelet Estimate IncreasedH, Platelet Morphology Normal, Polychromasia 1+, Hypochromasia 1+, Anisocytosis 2+, Microcytosis 1+ 05/20/20 22:00: Vancomycin Level Trough 22.2H 05/21/20 05:36: White Blood Count 18.4H, Red Blood Count 4.37, Hemoglobin 9.8L, Hematocrit 31.3L , Mean Corpuscular Volume 72L, Mean Corpuscular Hemoglobin 22.4L, Mean Corpuscular Hemoglobin Concent 31.3L, Red Cell Distribution Width 20.3H, Platelet Count 643H, Mean Platelet Volume 5.9L, Neutrophils (%) (Auto) , Lymphocytes (%) (Auto) , Monocytes (%) (Auto) , Eosinophils (%) (Auto) , Basophils (%) (Auto) , Neutrophils % (Manual) [Pending], Lymphocytes % (Manual) [Pending], Platelet Estimate [Pending], Platelet Morphology [Pending] Height (Feet): 5 Height (Inches): 6.00 Weight (Pounds): 130 Objective WDWN NAD clear breath sounds bilaterally without rhonchi or wheeze [id number] without MRG NABS nontender no HSM no CCE confused reduced ROM Assessment/Plan Assessment/Plan: schizophrenia seizure toxic met encephalopathy elevated WBC pneumonia uti EEG with diffuse slowing PLAN ID noted antibiotics labs seizure meds and precautions psych follow up dc once improved and cleared by ID likely needs snf impression, plan, and exam edited and reviewed in detail care discussed with Asaf Lazaro MD May 22, 2020 13:09
--- NOTE | 2020-05-22 14:14 | Neurology Progress Note ---
Interim History Interim History ROS Limited/Unobtainable: Yes Interim History cpk is elevated greater [id number]. Eeg no evidence of seizure activity.Diffuse slowing.Patient improved. repeat cpk ordered. no seizures Review of Systems All Systems: reviewed and negative except above Objective Physical Exam Last Vital Signs Date Time Temp Pulse Resp B/P (MAP) Pulse Ox O2 Delivery O2 Flow Rate FiO2 05/22/20 12:00 97.7 106 19 141/79 (99) 97 05/22/20 09:00 Room Air Laboratory Tests Test 05/22/20 13:20 White Blood Count Pending Red Blood Count Pending Hemoglobin Pending Hematocrit Pending Mean Corpuscular Volume Pending Mean Corpuscular Hemoglobin Pending Mean Corpuscular Hemoglobin Concent Pending Red Cell Distribution Width Pending Platelet Count Pending Mean Platelet Volume Pending Neutrophils (%) (Auto) Pending Lymphocytes (%) (Auto) Pending Monocytes (%) (Auto) Pending Eosinophils (%) (Auto) Pending Basophils (%) (Auto) Pending Sodium Level Pending Potassium Level Pending Chloride Level Pending Carbon Dioxide Level Pending Blood Urea Nitrogen Pending Creatinine Pending Estimat Glomerular Filtration Rate Pending Glucose Level Pending Calcium Level Pending Total Creatine Kinase Pending Neurologic Exam Mental Status: awake - awake but drowsy date sat. [facility] floor? Speech: other - mild dysarthria Cranial Nerves III, IV, : PERRLA - horizontal eye movmt. full , pupils - pupils 4.5 light reactive. Cranial Nerve V: other - corneals intact Cranial Nerve VIII: other - grossly intact Cranial Nerve XII: tongue midline, no tongue atrophy/fasciculations Motor System: normal muscle tone - tone normal in upper ext. almost lead pipe in lower ext, strength 5/5 - moves upper ext. no movement of lower ext. Sensory: other - pain sensation partially intact Deep Tendon Reflexes: 0 knee (L), 0 knee (R), 0 ankle (L), 0 ankle (R); 1+ bicep (L), 1+ bicep (R), 1+ brachioradialis (L), 1+ brachioradialis (R) Reflexes: flexor plantar (L), flexor plantar (R) Impression/Recommendations Status: progressing - progressing spoke with . patient not on antipsychotics prior to hosp. therefore nokt n.m.s. metabolic encephalopathy Diagnostic Impression progressing. spoke with . not n.m.s. cause of rigidity unclear get 2nd cpk Del Glover MD May 22, 2020 14:14
[2020-05-22 14:20] LABS: HEMATOCRIT 29.2 % (37.0-47.0); HEMOGLOBIN 8.8 G/DL (12.0-16.0); MEAN CORPUSCULAR VOLUME 73 FL (80-99); PLATELET COUNT 615 K/UL (150-450); RED BLOOD COUNT 3.97 M/UL (4.20-5.40); RED CELL DISTRIBUTION WIDTH 20.3 % (11.6-14.8); WHITE BLOOD COUNT 19.9 K/UL (4.8-10.8)
[2020-05-22 14:26] LABS: BLOOD UREA NITROGEN 10 mg/dL (7-18); CALCIUM 8.3 MG/DL (8.5-10.1); CARBON DIOXIDE 26 MMOL/L (21-32); CREATININE 0.6 MG/DL (0.55-1.30)
[2020-05-22 14:30] LABS: CREATINE KINASE 116 U/L (26-308)
[2020-05-22 14:32] LABS: CHLORIDE 105 MMOL/L (98-107); POTASSIUM 3.7 MMOL/L (3.5-5.1); SODIUM 139 MMOL/L (136-145)
--- NOTE | 2020-05-22 19:11 | NUR ---
NURSE HAND-OFF: Important Events on Shift:bp monitoring, atb tx Patient Status: stable Diet: reg soft mech Pending Orders: n/a Pending Results/Labs:n/a Pending MD notification:n/a Latest Vital Signs: Temperature 97.5 , Pulse 99 , B/P 144 /92 , Respiratory Rate 18 , O2 SAT 98 , Room Air, O2 Flow Rate . Vital Sign Comment: stable Latest Funez Fall Score: 50 Fall Risk: High Risk Safety Measures: Call light Within Reach, Bed Alarm Zone 1, Side Rails Side Rails x2, Bed position Low and Locked. Fall Precautions: Yellow Socks Yellow Gown Door Sign Patient Fall Education Report given to LISA Lazcano.
[2020-05-23] VITALS: BP 126/80
[2020-05-23 04:00] VITALS: BP 136/82
[2020-05-23] MEDS: Piperacillin/Tazobactam 3.375 GM in NS 110 ML IVPB SCH ×4 (06:30→21:31)
--- NOTE | 2020-05-23 07:27 | NUR ---
NURSE NOTES: Received report from LISA Lazcano. Patient observed to be asleep, no s/sx of SOB/Distress, no c/o any pain or discomfort. Patient with siderails padded. IV site located on LFA gauge 22 line asymptomatic, inplace and intact. Bed paced on lowest and locked, call light placed within reach and will continue to monitor for any changes in condition.
--- NOTE | 2020-05-23 07:30 | NUR ---
NURSE HAND-OFF: Important Events on Shift:[UNEVENTFUL NIGHT, RESTED WELL ON LEFT TO RIGHT SIDE ONLY] Patient Status: [STABLE, AFEBRILE] Diet: [REGULAR MECHANICAL SOFT GROUND] Pending Orders: [CHEST XRAY 05/23-STOOL OB X1] Pending Results/Labs:[N/A] Pending MD notification:[] Latest Vital Signs: Temperature 98.9 , Pulse 102 , B/P 136 /82 , Respiratory Rate 18 , O2 SAT 98 , Room Air, O2 Flow Rate . Vital Sign Comment: [STABLE, AFEBRILE] Latest Funez Fall Score: 50 Fall Risk: High Risk Safety Measures: Call light Within Reach, Bed Alarm Zone 1, Side Rails Side Rails x2, Bed position Low and Locked. Fall Precautions: Yellow Socks Yellow Gown Door Sign Patient Fall Education Report given to [DIANE JIMENEZ].
[2020-05-23 08:00] VITALS: BP 154/99
[2020-05-23 12:00] VITALS: BP 150/95
--- NOTE | 2020-05-23 15:43 | Pulmonology Progress Note ---
Subjective ROS Limited/Unobtainable: Yes Constitutional: Denies: fever, chills Gastrointestinal/Abdominal: Denies: nausea, vomiting, diarrhea Musculoskeletal: Reports: pain Allergies: Coded Allergies: No Known Allergies (Unverified , 05/17/20) All Systems: reviewed and negative except above Objective Last 24 Hour Vital Signs Date Time Temp Pulse Resp B/P (MAP) Pulse Ox O2 Delivery O2 Flow Rate FiO2 05/23/20 12:00 99.1 104 18 150/95 (113) 96 05/23/20 09:00 Room Air 05/23/20 08:00 97.9 110 19 154/99 (117) 96 05/23/20 04:00 98.9 102 18 136/82 (100) 98 05/23/20 00:00 98.6 100 18 126/80 (95) 96 05/22/20 21:00 Room Air 05/22/20 20:00 98.9 106 18 127/84 (98) 96 05/22/20 16:00 97.5 99 18 144/92 (109) 98 Intake and Output 05/22/20 05/23/20 19:00 07:00 Intake Total 600 ml 737.5 ml Balance 600 ml 737.5 ml Intake Oral 600 ml 600 ml IV Total 137.5 ml # Voids 2 3 # Bowel Movements 3 Current Medications Medications (Trade) Dose Ordered Sig/Laura Route PRN Reason Start Time Stop Time Status Last Admin Dose Admin Acetaminophen (Tylenol) 650 mg Q4H PRN ORAL Mild Pain (Pain Scale 1-3) 05/17/20 18:45 06/16/20 18:44 05/20/20 21:29 Al Hydroxide/Mg Hydroxide (Mylanta) 30 ml Q6H PRN ORAL heartburn 05/17/20 18:45 06/16/20 18:44 Clonidine HCl (Catapres Tab) 0.1 mg Q4H PRN ORAL For High Blood Pressure 05/18/20 19:00 08/16/20 18:59 05/22/20 08:02 Levetiracetam (Keppra) 500 mg Q12HR ORAL 05/17/20 21:00 07/01/20 20:59 05/23/20 08:01 Lorazepam (Ativan 2mg/ml 1ml) 1 mg Q4H PRN IV For Anxiety 05/17/20 18:45 05/24/20 18:44 05/19/20 04:49 Lorazepam (Ativan 2mg/ml 1ml) 1 mg Q4H PRN IV seizures 05/17/20 19:00 05/24/20 18:59 05/18/20 12:29 Pantoprazole (Protonix) 40 mg DAILY ORAL 05/18/20 09:00 06/17/20 08:59 05/23/20 08:01 Piperacillin Sod/ Tazobactam Sod 3.375 gm/Sodium Chloride 110 ml @ 27.5 mls/hr EVERY 8 HOURS IVPB 05/19/20 14:00 05/24/20 13:59 05/23/20 13:08 Risperidone (RisperDAL) 1 mg BEDTIME ORAL 05/20/20 21:00 07/04/20 20:59 05/22/20 21:59 Assessment/Plan Assessment/Plan Progress Note Subjective Allergies: Coded Allergies: No Known Allergies (Unverified , 05/17/20) Subjective remains confused off oxygen psych noted wbc improved Neurology/Psych following Objective Height (Feet): 5 Height (Inches): 6.00 Weight (Pounds): 130 WDWN NAD clear breath sounds bilaterally without rhonchi or wheeze [id number] without MRG NABS nontender no HSM no CCE confused reduced ROM Laboratory Tests noted Assessment/Plan Assessment/Plan: schizophrenia seizure toxic met encephalopathy elevated WBC pneumonia uti EEG with diffuse slowing PLAN ID noted antibiotics labs seizure meds and precautions psych follow up dc once improved and cleared by ID likely needs snf impression, plan, and exam edited and reviewed in detail care discussed with Asaf Lazaro MD May 23, 2020 15:43
[2020-05-23 16:00] VITALS: BP 133/93
--- NOTE | 2020-05-23 19:08 | NUR ---
NURSE HAND-OFF: Important Events on Shift:n/a Patient Status: stable Diet: regular mech soft 1:1 feeder Pending Orders: n/a Pending Results/Labs:n/a Pending MD notification:n/a Latest Vital Signs: Temperature 97.7 , Pulse 100 , B/P 133 /93 , Respiratory Rate 18 , O2 SAT 97 , Room Air, O2 Flow Rate . Vital Sign Comment: stable Latest Funez Fall Score: 50 Fall Risk: High Risk Safety Measures: Call light Within Reach, Bed Alarm Zone 1, Side Rails Side Rails x2, Bed position Low and Locked. Fall Precautions: Yellow Socks Yellow Gown Door Sign Patient Fall Education Report given to DIANE Davenport.
--- NOTE | 2020-05-23 19:30 | NUR ---
NURSE NOTES: Pt is in bed, awake and verbal. No acute distress noted.Vitals stable. No seizure activity noted. Pt will be repositioned and reoriented frequently. Fall and seizure precaution in place. Bed locked low in position,side rails up and call light within reach. Pt will be monitored.
[2020-05-23 20:00] VITALS: BP 142/89
[2020-05-24] VITALS: BP 161/92
[2020-05-24] MEDS: LORazepam Inj 2mg/ml 1ml IV PRN (00:13)
--- NOTE | 2020-05-24 00:40 | NUR ---
NURSE NOTES: Stool sent to lab for occult blood test.
--- NOTE | 2020-05-24 03:05 | NUR ---
NURSE NOTES: Pt is in bed, asleep. No acute distress noted. Pt was cleaned and repositioned.
[2020-05-24 04:00] VITALS: BP 147/88
[2020-05-24] MEDS: Piperacillin/Tazobactam 3.375 GM in NS 110 ML IVPB SCH ×3 (05:45→21:56)
--- NOTE | 2020-05-24 07:15 | NUR ---
NURSE HAND-OFF: Important Events on Shift:[] Patient Status: [Stable] Diet: [] Pending Orders: [] Pending Results/Labs:[Stool OB, stool sample sent to lab] Pending MD notification:[] Latest Vital Signs: Temperature 98.9 , Pulse 101 , B/P 147 /88 , Respiratory Rate 20 , O2 SAT 97 , Room Air, O2 Flow Rate . Vital Sign Comment: [] Latest Funez Fall Score: 50 Fall Risk: High Risk Safety Measures: Call light Within Reach, Bed Alarm Zone 1, Side Rails Side Rails x2, Bed position Low and Locked. Fall Precautions: Yellow Socks Yellow Gown Door Sign Patient Fall Education Report given to [Gracie Garcia RN].
[2020-05-24 08:00] VITALS: BP 162/92
--- NOTE | 2020-05-24 09:00 | General Progress Note ---
Subjective Allergies: Coded Allergies: No Known Allergies (Unverified , 05/17/20) Subjective weekend events reviewed off oxygen psych noted wbc still high, but improved Objective Last 24 Hour Vital Signs Date Time Temp Pulse Resp B/P (MAP) Pulse Ox O2 Delivery O2 Flow Rate FiO2 05/24/20 08:12 162/100 05/24/20 04:00 98.9 101 20 147/88 (107) 97 05/24/20 00:43 98 20 148/84 97 05/24/20 00:13 102 20 161/92 97 05/24/20 00:05 161/92 05/24/20 00:00 98.7 102 20 161/92 (115) 97 05/23/20 21:00 Room Air 05/23/20 20:00 98.9 102 18 142/89 (106) 97 05/23/20 16:00 97.7 100 18 133/93 (106) 97 05/23/20 12:00 99.1 104 18 150/95 (113) 96 Intake and Output 05/23/20 05/24/20 19:00 07:00 Intake Total 1000 ml 110.0 ml Balance 1000 ml 110.0 ml Intake Oral 1000 ml IV Total 110.0 ml # Voids 3 3 Laboratory Tests 05/24/20 00:30: Stool Occult Blood [Pending] Height (Feet): 5 Height (Inches): 6.00 Weight (Pounds): 130 Objective WDWN NAD clear breath sounds bilaterally without rhonchi or wheeze [id number] without MRG NABS nontender no HSM no CCE confused reduced ROM Assessment/Plan Status: progressing - progressing spoke with . patient not on antipsychotics prior to hosp. therefore nokt n.m.s. metabolic encephalopathy Assessment/Plan: schizophrenia seizure toxic met encephalopathy elevated WBC possible pneumonia possible uti EEG with diffuse slowing PLAN ID noted antibiotics seizure meds and precautions psych follow up dc once improved and cleared by ID likely needs snf repeat cbc impression, plan, and exam edited and reviewed in detail care discussed with Maikel Walters MD May 24, 2020 09:00
[2020-05-24 10:34] LABS: HEMATOCRIT 26.7 % (37.0-47.0); HEMOGLOBIN 8.1 G/DL (12.0-16.0); MEAN CORPUSCULAR VOLUME 73 FL (80-99); PLATELET COUNT 636 K/UL (150-450); RED BLOOD COUNT 3.68 M/UL (4.20-5.40); RED CELL DISTRIBUTION WIDTH 19.7 % (11.6-14.8); WHITE BLOOD COUNT 20.8 K/UL (4.8-10.8)
--- NOTE | 2020-05-24 11:30 | Infectious Diseases Prog Note ---
"Assessment/Plan Assessment/Plan antibiotics : vancomycin, zosyn A 1. gram positive UTI 2. pneumonia 3. seizures 4. leucocytosis improving 5. schizophrenia P 1. continue zosyn 2. CT chest | abdomen | pelvis 3. will follow up cultures Subjective Constitutional: Denies: fever, chills Respiratory: Denies: shortness of breath, dry cough Gastrointestinal/Abdominal: Denies: nausea, diarrhea Musculoskeletal: Denies: pain Allergies: Coded Allergies: No Known Allergies (Unverified , 05/17/20) Objective Last 24 Hour Vital Signs Date Time Temp Pulse Resp B/P (MAP) Pulse Ox O2 Delivery O2 Flow Rate FiO2 05/24/20 08:12 162/100 05/24/20 08:00 98.1 102 20 162/92 (115) 98 05/24/20 04:00 98.9 101 20 147/88 (107) 97 05/24/20 00:43 98 20 148/84 97 05/24/20 00:13 102 20 161/92 97 05/24/20 00:05 161/92 05/24/20 00:00 98.7 102 20 161/92 (115) 97 05/23/20 21:00 Room Air 05/23/20 20:00 98.9 102 18 142/89 (106) 97 05/23/20 16:00 97.7 100 18 133/93 (106) 97 05/23/20 12:00 99.1 104 18 150/95 (113) 96 Height (Feet): 5 Height (Inches): 6.00 Weight (Pounds): 130 Respiratory/Chest: lungs clear Cardiovascular: normal rate, regular rhythm, no gallop/murmur Abdomen: soft, non tender Extremities: no edema Laboratory Tests Test 05/24/20 00:30 05/24/20 10:00 Stool Occult Blood Pending White Blood Count 20.8 K/UL (4.8-10.8) H Red Blood Count 3.68 M/UL (4.20-5.40) L Hemoglobin 8.1 G/DL (12.0-16.0) L Hematocrit 26.7 % (37.0-47.0) L Mean Corpuscular Volume 73 FL (80-99) L Mean Corpuscular Hemoglobin 22.0 PG (27.0-31.0) L Mean Corpuscular Hemoglobin Concent 30.3 G/DL (32.0-36.0) L Red Cell Distribution Width 19.7 % (11.6-14.8) H Platelet Count 636 K/UL (150-450) H Mean Platelet Volume 5.3 FL (6.5-10.1) L Neutrophils (%) (Auto) % (45.0-75.0) Lymphocytes (%) (Auto) % (20.0-45.0) Monocytes (%) (Auto) % (1.0-10.0) Eosinophils (%) (Auto) % (0.0-3.0) Basophils (%) (Auto) % (0.0-2.0) Neutrophils % (Manual) Pending Lymphocytes % (Manual) Pending Platelet Estimate Pending Platelet Morphology Pending Current Medications Medications (Trade) Dose Ordered Sig/Laura Route PRN Reason Start Time Stop Time Status Last Admin Dose Admin Acetaminophen (Tylenol) 650 mg Q4H PRN ORAL Mild Pain (Pain Scale 1-3) 05/17/20 18:45 06/16/20 18:44 05/20/20 21:29 Al Hydroxide/Mg Hydroxide (Mylanta) 30 ml Q6H PRN ORAL heartburn 05/17/20 18:45 06/16/20 18:44 Clonidine HCl (Catapres Tab) 0.1 mg Q4H PRN ORAL For High Blood Pressure 05/18/20 19:00 08/16/20 18:59 05/24/20 08:12 Levetiracetam (Keppra) 500 mg Q12HR ORAL 05/17/20 21:00 07/01/20 20:59 05/24/20 08:06 Lorazepam (Ativan 2mg/ml 1ml) 1 mg Q4H PRN IV For Anxiety 05/17/20 18:45 05/24/20 18:44 05/24/20 00:13 Lorazepam (Ativan 2mg/ml 1ml) 1 mg Q4H PRN IV seizures 05/17/20 19:00 05/24/20 18:59 05/18/20 12:29 Pantoprazole (Protonix) 40 mg DAILY ORAL 05/18/20 09:00 06/17/20 08:59 05/24/20 08:06 Piperacillin Sod/ Tazobactam Sod 3.375 gm/Sodium Chloride 110 ml @ 27.5 mls/hr EVERY 8 HOURS IVPB 05/19/20 14:00 05/29/20 13:59 05/24/20 05:45 Risperidone (RisperDAL) 1 mg BEDTIME ORAL 05/20/20 21:00 07/04/20 20:59 05/23/20 21:32 Melvin Rabago MD May 24, 2020 11:30"
[2020-05-24] MEDS ORDERED: Omnipaque-300 100ml vial INJ PRN (11:33)
[2020-05-24 12:00] VITALS: BP 150/100
--- NOTE | 2020-05-24 12:49 | Neurology Progress Note ---
Interim History Interim History ROS Limited/Unobtainable: Yes Interim History patient had a haldol 250 mg injection on 04/27/20. gets injection q 4 weeks. patient is improved. cpk normal,has ovarian mass Objective Physical Exam Last Vital Signs Date Time Temp Pulse Resp B/P (MAP) Pulse Ox O2 Delivery O2 Flow Rate FiO2 05/24/20 12:00 98.6 18 150/100 (117) 98 05/24/20 09:00 Room Air 05/24/20 08:00 102 Laboratory Tests Test 05/24/20 00:30 05/24/20 10:00 Stool Occult Blood Pending White Blood Count 20.8 K/UL (4.8-10.8) H Red Blood Count 3.68 M/UL (4.20-5.40) L Hemoglobin 8.1 G/DL (12.0-16.0) L Hematocrit 26.7 % (37.0-47.0) L Mean Corpuscular Volume 73 FL (80-99) L Mean Corpuscular Hemoglobin 22.0 PG (27.0-31.0) L Mean Corpuscular Hemoglobin Concent 30.3 G/DL (32.0-36.0) L Red Cell Distribution Width 19.7 % (11.6-14.8) H Platelet Count 636 K/UL (150-450) H Mean Platelet Volume 5.3 FL (6.5-10.1) L Neutrophils (%) (Auto) % (45.0-75.0) Lymphocytes (%) (Auto) % (20.0-45.0) Monocytes (%) (Auto) % (1.0-10.0) Eosinophils (%) (Auto) % (0.0-3.0) Basophils (%) (Auto) % (0.0-2.0) Differential Total Cells Counted 100 Neutrophils % (Manual) 82 % (45-75) H Lymphocytes % (Manual) 11 % (20-45) L Monocytes % (Manual) 6 % (1-10) Eosinophils % (Manual) 1 % (0-3) Basophils % (Manual) 0 % (0-2) Band Neutrophils 0 % (0-8) Platelet Estimate Increased H Platelet Morphology Normal Polychromasia 1+ Hypochromasia 3+ Anisocytosis 2+ Microcytosis 3+ Neurologic Exam Mental Status: awake - awake but drowsy date sat. place [facility] floor? Speech: other - mild dysarthria Cranial Nerves III, IV, : PERRLA - horizontal eye movmt. full , pupils - pupils 4.5 light reactive. Cranial Nerve V: other - corneals intact Cranial Nerve VIII: other - grossly intact Cranial Nerve XII: tongue midline, no tongue atrophy/fasciculations Motor System: normal muscle tone - tone normal in upper ext. almost lead pipe in lower ext, strength 5/5 - moves upper ext. now moves lower ext. muscle much less Sensory: other - pain sensation partially intact Deep Tendon Reflexes: 0 ankle (L), 0 ankle (R); 1+ bicep (L), 1+ bicep (R), 1+ brachioradialis (L), 1+ brachioradialis (R), 1+ knee (L), 1+ knee (R) Reflexes: flexor plantar (L), flexor plantar (R) Impression/Recommendations Status: progressing - progressing spoke with . patient not on anti psychotics prior to hosp. therefore nokt n.m.s. metabolic encephalopathy Diagnostic Impression progressing. consider nms Del Glover MD May 24, 2020 12:49
[2020-05-24 16:00] VITALS: BP 143/98
--- NOTE | 2020-05-24 16:24 | NUR ---
CASE MANAGEMENT:REVIEW SI; SEIZURE. TOXIC METABOLIC ENCEPHALOPATHY SCHIZOPHRENIA. PNA. 98.9 102 20 162/100 97% ON RA WBC 20.8 H/H 8.1/26.7 PLT 636 IS;ZOSYN IV Q8 KEPPRA PO Q12 ATIVAN IV CLONIDINE PO Q4 PRN PROTONIX PO QD MED SURG STATUS DCP;FROM BOARD AND CARE
--- NOTE | 2020-05-24 16:40 | Diagnostic Imaging Report ---
CLINICAL INDICATION:Chest pain. Abdominal pain. History of ovarian carcinoma, pneumonia, urinary tract infection, leukocytosis TECHNIQUE: Patient ingested oral contrast. IV administration nonionic contrast. Multiphasic coronal acquisitions obtained through the chest, abdomen, and pelvis. Multiplanar reconstructions were generated. Total dose length product 427 mGycm. CTDIvol(s) 2, 24, 4, 4 mGy. Radiation dose was minimized using automated exposure control COMPARISON: none FINDINGS Chest: Atelectatic changes are seen at both lung bases. There may also be some hazy consolidation of portions of both lower lobes. No effusion. No dense consolidation. The upper lobes are clear as is the right middle lobe. The heart size is normal. No pericardial effusion. No mediastinal or hilar mass or adenopathy. The left thyroid lobe is enlarged, with a dominant nodule that measures at least 3.7 cm in diameter. There is also calcified nodule in the left thyroid lobe lower pole. No axillary or chest wall mass or adenopathy. The esophagus is unremarkable. Abdomen pelvis: There is a large midline pelvic cystic mass which measures 21.4 cm transverse by 10 cm AP by 16.2 cm craniocaudad. This appears to be largely unilocular, but the coronal images suggest 2 small locules on the inferior border of either side. It is thin-walled This is in the midline anterior to the uterus and above the dome of the bladder. No pelvic adenopathy is demonstrated. There is some infiltration of the presacral fat. There is a very large mass which appears to be centered in the lumen of the ascending colon. This demonstrates heterogeneous and enhancement with some areas of low-attenuation. This measures 11.8 cm AP by 9 cm transverse by 10.6 cm craniocaudad. There is evidence of infiltration of the serosal fat. There is some thickening of the wall of these hepatic flexure and proximal transverse colon distal to this. The cecum and ascending colon proximal to this are slightly distended, fluid-filled. There is no small bowel distention, although ingested contrast has not traversed the entirety of the small bowel. There are a few prominent regional mesenteric lymph nodes. There is infiltration of the presacral fat. No evidence of diverticulosis or diverticulitis. No small bowel wall thickening. No free or loculated intraperitoneal gas or fluid is evident. No definite solid liver lesion Subcentimeter low-attenuation lesion is seen at the junction of segments 4A and 4B within the liver. Another is seen in segment 2. The gallbladder contains gallstones. There is no biliary ductal dilatation. The pancreas, spleen, adrenals, kidneys are all unremarkable. No retroperitoneal mass or adenopathy. There is diffuse mild edema of the subcutaneous fat. The bones are unremarkable. IMPRESSION: 11.8 x 9 x 10.6 cm heterogeneous mass centered in the lumen of the ascending colon, highly suspicious for primary colon malignancy. There is suggestion of serosal invasion and there are a few prominent nonspecific regional nodes present. There is very mild distention of the colon proximal to this 21.4 10 x 16.2 cm anterior midline cystic pelvic mass. Although largely thin-walled and demonstrating only 2 small locules, the size is worrisome for gynecological malignancy. The technologist notes describes history of ovarian carcinoma. Correlate with of clinical history Nonspecific infiltration of the presacral fat 3.7 cm left lobe thyroid nodule. Consider further evaluation with sonography Basilar pulmonary parenchymal atelectasis and possibly some lower lobe hazy consolidation Subcentimeter low-attenuation liver lesions, too small to characterize Cholelithiasis Findings discussed by phone with Dr. Fajardo at the time of interpretation The CT scanner at [facility] is accredited by the [employer] and the scans are performed using protocols designed to limit radiation exposure to as low as reasonably achievable to attain images of sufficient resolution adequate for diagnostic evaluation.
--- NOTE | 2020-05-24 18:15 | Psychiatric Progress Note ---
Psychiatry Progress Note Psychiatry Progress Note Subjective the pt received haldol dec 100mg monthly. per board and care nurse. the pt is improving gradually. the pt has no agitation. Medications Current Medications Medications (Trade) Dose Ordered Sig/Laura Route PRN Reason Start Time Stop Time Status Last Admin Dose Admin Acetaminophen (Tylenol) 650 mg Q4H PRN ORAL Mild Pain (Pain Scale 1-3) 05/17/20 18:45 06/16/20 18:44 05/20/20 21:29 Al Hydroxide/Mg Hydroxide (Mylanta) 30 ml Q6H PRN ORAL heartburn 05/17/20 18:45 06/16/20 18:44 Barium Sulfate (Readi-Cat 2) 450 ml NOW PRN ORAL Radiology Procedure 05/24/20 11:30 05/26/20 11:29 Clonidine HCl (Catapres Tab) 0.1 mg Q4H PRN ORAL For High Blood Pressure 05/18/20 19:00 08/16/20 18:59 05/24/20 08:12 Iohexol (OMNIPAQUE-300 100ml) 100 ml ONCE PRN INJ RADIOLOGY 05/24/20 11:33 05/25/20 23:59 Levetiracetam (Keppra) 500 mg Q12HR ORAL 05/17/20 21:00 07/01/20 20:59 05/24/20 08:06 Lorazepam (Ativan 2mg/ml 1ml) 1 mg Q4H PRN IV For Anxiety 05/17/20 18:45 05/24/20 18:44 05/24/20 00:13 Lorazepam (Ativan 2mg/ml 1ml) 1 mg Q4H PRN IV seizures 05/17/20 19:00 05/24/20 18:59 05/18/20 12:29 Pantoprazole (Protonix) 40 mg DAILY ORAL 05/18/20 09:00 06/17/20 08:59 05/24/20 08:06 Piperacillin Sod/ Tazobactam Sod 3.375 gm/Sodium Chloride 110 ml @ 27.5 mls/hr EVERY 8 HOURS IVPB 05/19/20 14:00 05/29/20 13:59 05/24/20 15:01 Risperidone (RisperDAL) 1 mg BEDTIME ORAL 05/20/20 21:00 07/04/20 20:59 05/23/20 21:32 Neurological/Psychiatric: Reports: anxiety, depressed Allergies: Coded Allergies: No Known Allergies (Unverified , 05/17/20) Objective Data Height (Feet): 5 Height (Inches): 6.00 Weight (Pounds): 130 General Appearance: WD/WN, no apparent distress, alert Appearance: no abnormalities noted Additional Comments: Mood is disoriented to situation. Mood is neutral to anxious. Affect is constricted, congruent with mood. Thought process is concrete. Thought content, no suicidal or homicidal ideation. Cognition is impaired. Insight and judgment is impaired. ASSESSMENT: Lovejoy I Acute toxic encephalopathy due to UTI and pneumonia. Schizophrenia. Lovejoy II Deferred. Lovejoy III Seizure, UTI, and pneumonia. Lovejoy IV Low. Lovejoy V 20. PLAN: 1. Low-dose of antipsychotics. 2. Ativan p.r.n. 3. We will continue to follow and readjust the medications. Assessment/Plan Status: progressing - progressing spoke with . patient not on antipsychotics prior to hosp. therefore nodhiraj n.m.s. metabolic encephalopathy Ana Lopez MD May 24, 2020 18:15
--- NOTE | 2020-05-24 19:10 | NUR ---
NURSE NOTES: RECEIVED PATIENT FROM ALVARO CONTRERAS. PATIENT IS AWAKE, AAOX4, ON ROOM AIR, NO ACUTE DISTRESS NOTED. EXTREMITY CONTRACTED. REPOSITIONED. PIV INTACT AND PATENT. VSS. AFEBRILE. BED IS LOCKED AND LOW, BED ALARMS ACTIVE, SIDE RAILS UPX2 AND CALL LIGHT IS WITHIN REACH. WILL CONTINUE TO MONITOR.
[2020-05-24 20:00] VITALS: BP 133/85
[2020-05-25 04:00] VITALS: BP 154/97
[2020-05-25] MEDS: Piperacillin/Tazobactam 3.375 GM in NS 110 ML IVPB SCH (06:31)
--- NOTE | 2020-05-25 07:05 | NUR ---
NURSE HAND-OFF: Important Events on Shift: VSS. Good urine output. Antibiotics transfused. Patient Status: Stable Diet: Mech-Soft Chop Pending Orders: N/A Pending Results/Labs: N/A Pending MD notification: N/A Latest Vital Signs: Temperature 98.0 , Pulse 102 , B/P 154 /97 , Respiratory Rate 19 , O2 SAT 97 , Room Air, O2 Flow Rate . Vital Sign Comment: Stable Latest Funez Fall Score: 50 Fall Risk: High Risk Safety Measures: Call light Within Reach, Bed Alarm Zone 1, Side Rails Side Rails x2, Bed position Low and Locked. Fall Precautions: Yellow Socks Yellow Gown Door Sign Patient Fall Education
--- NOTE | 2020-05-25 07:15 | NUR ---
NURSE NOTES: Received patient in bed, awake, alert, oriented x4, verbally responsive.denies pain or discomfort No seizure activity noted. on Fall and seizure precaution in place. Bed locked low in position,side rails up and call light within reach. Pt will be monitored. torsten ford
--- NOTE | 2020-05-25 07:36 | General Progress Note ---
Subjective Allergies: Coded Allergies: No Known Allergies (Unverified , 05/17/20) Subjective CT reviewed psych noted wbc still high, Objective Last 24 Hour Vital Signs Date Time Temp Pulse Resp B/P (MAP) Pulse Ox O2 Delivery O2 Flow Rate FiO2 05/25/20 04:00 98.0 19 154/97 (116) 97 05/24/20 21:00 Room Air 05/24/20 20:00 98.4 18 133/85 (101) 96 05/24/20 16:00 98.3 18 143/98 (113) 99 05/24/20 12:00 98.6 18 150/100 (117) 98 05/24/20 09:00 Room Air 05/24/20 08:12 162/100 05/24/20 08:00 98.1 102 20 162/92 (115) 98 Intake and Output 05/24/20 05/25/20 19:00 07:00 Intake Total 840 ml 110.0 ml Balance 840 ml 110.0 ml Intake Oral 840 ml IV Total 110.0 ml # Voids 1 4 Laboratory Tests 05/24/20 10:00: White Blood Count 20.8H, Red Blood Count 3.68L, Hemoglobin 8.1L, Hematocrit 26.7L, Mean Corpuscular Volume 73L, Mean Corpuscular Hemoglobin 22.0L, Mean Corpuscular Hemoglobin Concent 30.3L, Red Cell Distribution Width 19.7H, Platelet Count 636H, Mean Platelet Volume 5.3L, Neutrophils (%) (Auto) , Lymphocytes (%) (Auto) , Monocytes (%) (Auto) , Eosinophils (%) (Auto) , Basophils (%) (Auto) , Differential Total Cells Counted 100, Neutrophils % (Manual) 82H, Lymphocytes % (Manual) 11L, Monocytes % (Manual) 6, Eosinophils % (Manual) 1, Basophils % (Manual) 0, Band Neutrophils 0, Platelet Estimate Increa sedH, Platelet Morphology Normal, Polychromasia 1+, Hypochromasia 3+, Anisocytosis 2+, Microcytosis 3+ Height (Feet): 5 Height (Inches): 6.00 Weight (Pounds): 130 Objective WDWN NAD clear breath sounds bilaterally without rhonchi or wheeze [id number] without MRG NABS nontender no HSM no CCE confused reduced ROM Assessment/Plan Status: progressing - progressing spoke with . patient not on antipsychotics prior to hosp. therefore nokt n.m.s. 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
[2020-05-25 08:00] VITALS: BP 144/62
[2020-05-25 09:07] LABS: HEMATOCRIT 24.9 % (37.0-47.0); HEMOGLOBIN 7.9 G/DL (12.0-16.0); MEAN CORPUSCULAR VOLUME 70 FL (80-99); PLATELET COUNT 618 K/UL (150-450); RED BLOOD COUNT 3.58 M/UL (4.20-5.40); RED CELL DISTRIBUTION WIDTH 21.4 % (11.6-14.8); WHITE BLOOD COUNT 18.3 K/UL (4.8-10.8)
--- NOTE | 2020-05-25 11:00 | NUR ---
PT WEEKLY PROGRESS NOTE Patient being seen by PT for strengthening exercises, bed mobility training, transfer training and gait training. Patient demonstrating improved participation and initiation of movement. Patient requires mod assist for bed mobility and mod assist of 2 for transfers due to instability. Patient able to ambulate 25 ft with bilateral hand hold assist/mod assist. Patient will benefit from continued skilled inpatient PT intervention to increase strength, balance, safety and functional mobility.
--- NOTE | 2020-05-25 11:03 | NUR ---
RD ASSESSMENT & RECOMMENDATIONS SEE CARE ACTIVITY FOR COMPLETE ASSESSMENT DAILY ESTIMATED NEEDS: Needs based on general 63.5kg 25-30 kcals/kg 4112-3339 total kcals .8-1.2 g protein/kg 51-76 g total protein 25-30 mL/kg 8136-0905 total fluid mLs NUTRITION DIAGNOSIS: Altered nutrition related lab values r/t clinical status as evidenced by elev WBC (18.3), low Hgb (7.9), SOB (+), Creat kinase elevated, now wnl. CURRENT DIET: regular ms ground PO DIET RECOMMENDATIONS: Maintain Regular diet, texture per SPECIAL EVENTS MANAGER ADDITIONAL RECOMMENDATIONS: 1) Maintain calibrated bed scale wts 2) Monitor for continued good po intake, need for SPECIAL EVENTS MANAGER eval Currently on ms ground texture -> Monitor need for snacks, supplements
--- NOTE | 2020-05-25 11:55 | Infectious Diseases Prog Note ---
Assessment/Plan Assessment/Plan antibiotics : zosyn A 1. gram positive UTI 2. pneumonia 3. seizures 4. leucocytosis improving 5. schizophrenia 6. abdominal malignancy P 1. d/c zosyn 2. observe off antibiotics 3. will follow up cultures Subjective Constitutional: Denies: fever, chills Respiratory: Denies: shortness of breath, dry cough Gastrointestinal/Abdominal: Denies: nausea, vomiting, diarrhea Musculoskeletal: Denies: pain Allergies: Coded Allergies: No Known Allergies (Unverified , 05/17/20) Objective Last 24 Hour Vital Signs Date Time Temp Pulse Resp B/P (MAP) Pulse Ox O2 Delivery O2 Flow Rate FiO2 05/25/20 08:25 Room Air 05/25/20 08:00 98.2 20 144/62 (89) 97 05/25/20 04:00 98.0 19 154/97 (116) 97 05/24/20 21:00 Room Air 05/24/20 20:00 98.4 18 133/85 (101) 96 05/24/20 16:00 98.3 18 143/98 (113) 99 05/24/20 12:00 98.6 18 150/100 (117) 98 Height (Feet): 5 Height (Inches): 6.00 Weight (Pounds): 130 Respiratory/Chest: lungs clear Cardiovascular: normal rate, regular rhythm, no gallop/murmur Abdomen: soft, non tender Extremities: no edema Laboratory Tests Test 05/25/20 07:35 White Blood Count 18.3 K/UL (4.8-10.8) H Red Blood Count 3.58 M/UL (4.20-5.40) L Hemoglobin 7.9 G/DL (12.0-16.0) L Hematocrit 24.9 % (37.0-47.0) L Mean Corpuscular Volume 70 FL (80-99) L Mean Corpuscular Hemoglobin 22.0 PG (27.0-31.0) L Mean Corpuscular Hemoglobin Concent 31.6 G/DL (32.0-36.0) L Red Cell Distribution Width 21.4 % (11.6-14.8) H Platelet Count 618 K/UL (150-450) H Mean Platelet Volume 5.4 FL (6.5-10.1) L Neutrophils (%) (Auto) % (45.0-75.0) Lymphocytes (%) (Auto) % (20.0-45.0) Monocytes (%) (Auto) % (1.0-10.0) Eosinophils (%) (Auto) % (0.0-3.0) Basophils (%) (Auto) % (0.0-2.0) Differential Total Cells Counted 100 Neutrophils % (Manual) 84 % (45-75) H Lymphocytes % (Manual) 11 % (20-45) L Monocytes % (Manual) 5 % (1-10) Eosinophils % (Manual) 0 % (0-3) Basophils % (Manual) 0 % (0-2) Band Neutrophils 0 % (0-8) Platelet Estimate Increased H Platelet Morphology Normal Polychromasia 1+ Hypochromasia 1+ Anisocytosis 2+ Microcytosis 2+ Current Medications Medications (Trade) Dose Ordered Sig/Laura Route PRN Reason Start Time Stop Time Status Last Admin Dose Admin Acetaminophen (Tylenol) 650 mg Q4H PRN ORAL Mild Pain (Pain Scale 1-3) 05/17/20 18:45 06/16/20 18:44 05/20/20 21:29 Al Hydroxide/Mg Hydroxide (Mylanta) 30 ml Q6H PRN ORAL heartburn 05/17/20 18:45 06/16/20 18:44 Barium Sulfate (Readi-Cat 2) 450 ml NOW PRN ORAL Radiology Procedure 05/24/20 11:30 05/26/20 11:29 Clonidine HCl (Catapres Tab) 0.1 mg Q4H PRN ORAL For High Blood Pressure 05/18/20 19:00 08/16/20 18:59 05/24/20 08:12 Iohexol (OMNIPAQUE-300 100ml) 100 ml ONCE PRN INJ RADIOLOGY 05/24/20 11:33 05/25/20 23:59 Levetiracetam (Keppra) 500 mg Q12HR ORAL 05/17/20 21:00 07/01/20 20:59 05/25/20 08:17 Pantoprazole (Protonix) 40 mg DAILY ORAL 05/18/20 09:00 06/17/20 08:59 05/25/20 08:17 Piperacillin Sod/ Tazobactam Sod 3.375 gm/Sodium Chloride 110 ml @ 27.5 mls/hr EVERY 8 HOURS IVPB 05/19/20 14:00 05/29/20 13:59 05/25/20 06:31 Risperidone (RisperDAL) 1 mg BEDTIME ORAL 05/20/20 21:00 07/04/20 20:59 05/24/20 21:56 Melvin Rabago MD May 25, 2020 11:55
[2020-05-25 12:22] VITALS: BP 149/72
--- NOTE | 2020-05-25 12:23 | Consultation ---
Consult Note Consult Note GYNECOLOGY CONSULTATION REPORT CC: Pelvic mass HPI: The patient is a 44yo GP unknown who was admitted with possible seizure activity and a history of schizophrenia. She resides in a board and care. A 21cm pelvic mass and concurrent mass on colon were noted on imaging done yesterday. I was consulted for recommendations and plan of care regarding her pelvic mass. The patient denies any abdominal or pelvic pain. She reports irregular menses, LMP sometime in February. Periods were heavier in her youth, but have normalized to moderate flow. I was unable to obtain any other related history from her at this time. ROS: Difficult to obtain. PMH: Schizophrenia. PSH: Unknown. MEDS: See chart for current inpatient meds. ALLERGIES: No known allergies. OBHX: Unable to obtain. GYNHX: LMP in February (patient seems sure). No other obtainable HOUSE VISITOR history, although through chart review the radiologist states "reported history of ovarian malignancy". Patient only stated to me "I have a big cyst?" SOCHX: Resides in a board and [facility]. FAMHX: Unable to obtain. VITALS: BP 144/62, P 97, RR 20, T 98.2, O2 97% RA EXAM: GEN: NAD, resting comfortably in bed, somewhat confused HEENT: OP clear, MMM CV: No tachycardia Pulm: Respirations even and unlabored Abd: Soft, +fullness throughout mid to upper abdomen, non-tender, +distention Pelvic: Internal exam deferred. External urine catheter in place Ext: SCDs in place, no calf TTP LABS: Labs Test 05/22/20 13:20 05/24/20 00:30 05/24/20 10:00 05/25/20 07:35 White Blood Count 19.9 K/UL (4.8-10.8) 20.8 K/UL (4.8-10.8) 18.3 K/UL (4.8-10.8) Red Blood Count 3.97 M/UL (4.20-5.40) 3.68 M/UL (4.20-5.40) 3.58 M/UL (4.20-5.40) Hemoglobin 8.8 G/DL (12.0-16.0) 8.1 G/DL (12.0-16.0) 7.9 G/DL (12.0-16.0) Hematocrit 29.2 % (37.0-47.0) 26.7 % (37.0-47.0) 24.9 % (37.0-47.0) Mean Corpuscular Volume 73 FL (80-99) 73 FL (80-99) 70 FL (80-99) Mean Corpuscular Hemoglobin 22.2 PG (27.0-31.0) 22.0 PG (27.0-31.0) 22.0 PG (27.0-31.0) Mean Corpuscular Hemoglobin Concent 30.2 G/DL (32.0-36.0) 30.3 G/DL (32.0-36.0) 31.6 G/DL (32.0-36.0) Red Cell Distribution Width 20.3 % (11.6-14.8) 19.7 % (11.6-14.8) 21.4 % (11.6-14.8) Platelet Count 615 K/UL (150-450) 636 K/UL (150-450) 618 K/UL (150-450) Mean Platelet Volume 5.1 FL (6.5-10.1) 5.3 FL (6.5-10.1) 5.4 FL (6.5-10.1) Neutrophils (%) (Auto) % (45.0-75.0) % (45.0-75.0) % (45.0-75.0) Lymphocytes (%) (Auto) % (20.0-45.0) % (20.0-45.0) % (20.0-45.0) Monocytes (%) (Auto) % (1.0-10.0) % (1.0-10.0) % (1.0-10.0) Eosinophils (%) (Auto) % (0.0-3.0) % (0.0-3.0) % (0.0-3.0) Basophils (%) (Auto) % (0.0-2.0) % (0.0-2.0) % (0.0-2.0) Differential Total Cells Counted 100 100 100 Neutrophils % (Manual) 79 % (45-75) 82 % (45-75) 84 % (45-75) Lymphocytes % (Manual) 10 % (20-45) 11 % (20-45) 11 % (20-45) Monocytes % (Manual) 9 % (1-10) 6 % (1-10) 5 % (1-10) Eosinophils % (Manual) 0 % (0-3) 1 % (0-3) 0 % (0-3) Basophils % (Manual) 0 % (0-2) 0 % (0-2) 0 % (0-2) Band Neutrophils 2 % (0-8) 0 % (0-8) 0 % (0-8) Platelet Estimate Increased Increased Increased Platelet Morphology Normal Normal Normal Hypochromasia 1+ 3+ 1+ Anisocytosis 2+ 2+ 2+ Microcytosis 1+ 3+ 2+ Sodium Level 139 MMOL/L (136-145) Potassium Level 3.7 MMOL/L (3.5-5.1) Chloride Level 105 MMOL/L (98-107) Carbon Dioxide Level 26 MMOL/L (21-32) Blood Urea Nitrogen 10 mg/dL (7-18) Creatinine 0.6 MG/DL (0.55-1.30) Estimat Glomerular Filtration Rate > 60 mL/min (>60) Glucose Level 104 MG/DL (74-106) Calcium Level 8.3 MG/DL (8.5-10.1) Total Creatine Kinase 116 U/L (26-308) Stool Occult Blood Positive (NEGATIVE) Polychromasia 1+ 1+ IMAGING: CT Chest/Abdomen/Pelvis w/contrast: Chest: Atelectatic changes are seen at both lung bases. There may also be some hazy consolidation of portions of both lower lobes. No effusion. No dense consolidation. The upper lobes are clear as is the right middle lobe. The heart size is normal. No pericardial effusion. No mediastinal or hilar mass or adenopathy. The left thyroid lobe is enlarged, with a dominant nodule that measures at least 3.7 cm in diameter. There is also calcified nodule in the left thyroid lobe lower pole. No axillary or chest wall mass or adenopathy. The esophagus is unremarkable. Abdomen pelvis: There is a large midline pelvic cystic mass which measures 21.4 cm transverse by 10 cm AP by 16.2 cm craniocaudad. This appears to be largely unilocular, but the coronal images suggest 2 small locules on the inferior border of either side. It is thin-walled This is in the midline anterior to the uterus and above the dome of the bladder. No pelvic adenopathy is demonstrated. There is some infiltration of the presacral fat. There is a very large mass which appears to be centered in the lumen of the ascending colon. This demonstrates heterogeneous and enhancement with some areas of low-attenuation. This measures 11.8 cm AP by 9 cm transverse by 10.6 cm craniocaudad. There is evidence of infiltration of the serosal fat. There is some thickening of the wall of these hepatic flexure and proximal transverse colon distal to this. The cecum and ascending colon proximal to this are slightly distended, fluid-filled. There is no small bowel distention, although ingested contrast has not traversed the entirety of the small bowel. There are a few prominent regional mesenteric lymph nodes. There is infiltration of the presacral fat. No evidence of diverticulosis or diverticulitis. No small bowel wall thickening. No free or loculated intraperitoneal gas or fluid is evident. No definite solid liver lesion Subcentimeter low-attenuation lesion is seen at the junction of segments 4A and 4B within the liver. Another is seen in segment 2. The gallbladder contains gallstones. There is no biliary ductal dilatation. The pancreas, spleen, adrenals, kidneys are all unremarkable. No retroperitoneal mass or adenopathy. There is diffuse mild edema of the subcutaneous fat. The bones are unremarkable. IMPRESSION: 11.8 x 9 x 10.6 cm heterogeneous mass centered in the lumen of the ascending colon, highly suspicious for primary colon malignancy. There is suggestion of serosal invasion and there are a few prominent nonspecific regional nodes present. There is very mild distention of the colon proximal to this 21.4 10 x 16.2 cm anterior midline cystic pelvic mass. Although largely thin- walled and demonstrating only 2 small locules, the size is worrisome for gynecological malignancy. The technologist notes describes history of ovarian carcinoma. Correlate with of clinical history Nonspecific infiltration of the presacral fat 3.7 cm left lobe thyroid nodule. Consider further evaluation with sonography Basilar pulmonary parenchymal atelectasis and possibly some lower lobe hazy consolidation Subcentimeter low-attenuation liver lesions, too small to characterize Cholelithiasis Findings discussed by phone with Dr. Fajardo at the time of interpretation The CT scanner at [facility] is accredited by the [employer] and the scans are performed using protocols designed to limit ra diation exposure to as low as reasonably achievable to attain images of sufficient resolution adequate for diagnostic evaluation. Assessment/Plan 44yo with 21cm pelvic mass and concurrent mass on colon - Significant concern for HOUSE VISITOR malignancy and possible concurrent GI malignancy - Recommend urgent follow up with HOUSE VISITOR-Oncology - Recommend Social Work involvement to coordinate care - Patient can be followed up urgently as an outpatient, however recommend obtain follow up PAUL - Consider tumor markers (CA-125, LDH, AFP, CEA, CA 19-9, Estradiol, B-hCG quant), however these may be obtained once she has established care with HOUSE VISITOR- Oncology Thank you for this interesting consult. Signed, Asia Salazar M.D. May 25, 2020 12:23
--- NOTE | 2020-05-25 14:44 | NUR ---
CASE MANAGEMENT:REVIEW SI;SEIZURE. TOXIC METABOLIC ENCEPHALOPATHY. SCHIZOPHRENIA. PNA. 98.2 95 20 154/97 97% ON RA WBC 18.3 H/H 7.9/24.9 PLT 618 IS;ZOSYN IV Q8 PROTONIX PO QD KEPPRA PO Q12 MED SURG STATUS DCP;FROM [facility]ARD AND CARE
[2020-05-25 16:10] VITALS: BP 156/106
--- NOTE | 2020-05-25 19:30 | NUR ---
NURSE HAND-OFF: Important Events on Shift:[IV atb stopped as ordered, repositioned for comfort and good circulation] Patient Status: [improving] Diet: [regular] Pending Orders: [none] Pending Results/Labs:none] Pending MD notification:[none] Latest Vital Signs: Temperature 98.6 , Pulse 96 , B/P 156 /106 , Respiratory Rate 20 , O2 SAT 98 , Room Air, O2 Flow Rate . Vital Sign Comment: [stable] Latest Funez Fall Score: 50 Fall Risk: High Risk Safety Measures: Call light Within Reach, Bed Alarm Zone 1, Side Rails Side Rails x2, Bed position Low and Locked. Fall Precautions: Yellow Socks Yellow Gown Door Sign Patient Fall Education Report given to [MS AMBER SUTTON ].
--- NOTE | 2020-05-25 19:31 | NUR ---
NURSE NOTES: Patient in bed, awake and able to make needs known. No seizure activity noted. On room air with no signs of distress or SOB. Fall and seizure precaution in place. Bed locked and in lowest position. Call light in reach. Will continue plan of care.
[2020-05-25 20:00] VITALS: BP 159/110
--- NOTE | 2020-05-25 20:36 | Psychiatric Progress Note ---
Psychiatry Progress Note Psychiatry Progress Note Subjective the pt received haldol dec 100mg monthly. per board and care nurse. the pt is improving gradually. the pt has no agitation. the pt is calm poor cognition Medications Current Medications Medications (Trade) Dose Ordered Sig/Laura Route PRN Reason Start Time Stop Time Status Last Admin Dose Admin Acetaminophen (Tylenol) 650 mg Q4H PRN ORAL Mild Pain (Pain Scale 1-3) 05/17/20 18:45 06/16/20 18:44 05/20/20 21:29 Al Hydroxide/Mg Hydroxide (Mylanta) 30 ml Q6H PRN ORAL heartburn 05/17/20 18:45 06/16/20 18:44 Barium Sulfate (Readi-Cat 2) 450 ml NOW PRN ORAL Radiology Procedure 05/24/20 11:30 05/26/20 11:29 Clonidine HCl (Catapres Tab) 0.1 mg Q4H PRN ORAL For High Blood Pressure 05/18/20 19:00 08/16/20 18:59 05/24/20 08:12 Iohexol (OMNIPAQUE-300 100ml) 100 ml ONCE PRN INJ RADIOLOGY 05/24/20 11:33 05/25/20 23:59 Levetiracetam (Keppra) 500 mg Q12HR ORAL 05/17/20 21:00 07/01/20 20:59 05/25/20 08:17 Pantoprazole (Protonix) 40 mg DAILY ORAL 05/18/20 09:00 06/17/20 08:59 05/25/20 08:17 Risperidone (RisperDAL) 1 mg BEDTIME ORAL 05/20/20 21:00 07/04/20 20:59 05/24/20 21:56 Neurological/Psychiatric: Reports: anxiety, depressed Allergies: Coded Allergies: No Known Allergies (Unverified , 05/17/20) Objective Data Height (Feet): 5 Height (Inches): 6.00 Weight (Pounds): 130 General Appearance: WD/WN, no apparent distress, alert Appearance: no abnormalities noted Additional Comments: Mood is disoriented to situation. Mood is neutral to anxious. Affect is constricted, congruent with mood. Thought process is concrete. Thought content, no suicidal or homicidal ideation. Cognition is impaired. Insight and judgment is impaired. ASSESSMENT: [place] I Acute toxic encephalopathy due to UTI and pneumonia. Schizophrenia. [place] II Deferred. [place] III Seizure, UTI, and pneumonia. [place] IV Low. [place] V 20. PLAN: 1. Low-dose of antipsychotics. 2. Ativan p.r.n. 3. We will continue to follow and readjust the medications. Assessment/Plan Status: progressing - progressing spoke with . patient not on antipsychotics prior to hosp. therefore nokt n.m.s. metabolic encephalopathy Ana Lopez MD May 25, 2020 20:36
[2020-05-26] VITALS: BP 158/96
[2020-05-26 04:00] VITALS: BP_SYST 148; BP_SYST 165; BP_DIAS 100; BP_DIAS 99
--- NOTE | 2020-05-26 07:06 | NUR ---
NURSE HAND-OFF: Important Events on Shift: No events Patient Status: Stable Diet: Reg mechanical soft-ground Pending Orders: N/A Pending Results/Labs: CBC, BMP Pending MD notification: N/A Latest Vital Signs: Temperature 97.5 , Pulse 93 , B/P 165 /99 , Respiratory Rate 18 , O2 SAT 97 , Room Air, O2 Flow Rate . Vital Sign Comment: N/A Latest Fuenz Fall Score: 50 Fall Risk: High Risk Safety Measures: Call light Within Reach, Bed Alarm Zone 1, Side Rails Side Rails x2, Bed position Low and Locked. Fall Precautions: Yellow Socks Yellow Gown Door Sign Patient Fall Education Addendum: 05/26/20 at 0720 by SANFORD CLARK RN Report given to DIANE Casas
--- NOTE | 2020-05-26 07:55 | NUR ---
NURSE NOTES: Received report from DIANE Marsh. Patient observed to be asleep, currently on room air, no s/sx of SOB/Distress, no s/sx of Pain or discomfort. Patient with IV site located on LFA 22 line patent, asymptomatic, inplace and intact. Bed placed on lowest and locked, call light placed within reach and will continue to monitor.
[2020-05-26 08:00] VITALS: BP 157/91
[2020-05-26 08:00] LABS: HEMATOCRIT 27.4 % (37.0-47.0); HEMOGLOBIN 8.4 G/DL (12.0-16.0); MEAN CORPUSCULAR VOLUME 71 FL (80-99); PLATELET COUNT 735 K/UL (150-450); RED BLOOD COUNT 3.88 M/UL (4.20-5.40); WHITE BLOOD COUNT 16.7 K/UL (4.8-10.8)
[2020-05-26 08:13] LABS: % IRON SATURATION 8 % (15-50); IRON 14 ug/dL (50-175); TOTAL IRON BINDING CAPACITY 182 ug/dL (250-450)
[2020-05-26 08:26] LABS: ANION GAP 7 mmol/L (5-15); BLOOD UREA NITROGEN 10 mg/dL (7-18); CALCIUM 8.7 MG/DL (8.5-10.1); CARBON DIOXIDE 28 MMOL/L (21-32); CHLORIDE 102 MMOL/L (98-107); CREATININE 0.7 MG/DL (0.55-1.30); FERRITIN 37 NG/ML (8-388); POTASSIUM 4.1 MMOL/L (3.5-5.1); SODIUM 137 MMOL/L (136-145)
--- NOTE | 2020-05-26 09:42 | General Progress Note ---
Subjective Allergies: Coded Allergies: No Known Allergies (Unverified , 05/17/20) Subjective CT reviewed psych noted wbc still high, Objective Last 24 Hour Vital Signs Date Time Temp Pulse Resp B/P (MAP) Pulse Ox O2 Delivery O2 Flow Rate FiO2 05/26/20 08:24 157/91 05/26/20 04:00 97.5 93 18 148/100 (116) 97 05/26/20 00:00 98.4 96 16 158/96 (116) 97 05/25/20 20:17 Room Air 05/25/20 20:00 97.8 60 18 159/110 (126) 97 05/25/20 16:10 98.6 96 20 156/106 (123) 98 05/25/20 12:22 98.0 95 20 149/72 (97) 98 Intake and Output 05/25/20 05/26/20 19:00 07:00 Intake Total 710.0 ml 360 ml Output Total 600 ml 700 ml Balance 110.0 ml -340 ml Intake Oral 600 ml IV Total 110.0 ml Other 360 ml Output Urine Total 600 ml 700 ml # Voids 2 Laboratory Tests 05/26/20 07:47: White Blood Count 16.7H, Red Blood Count 3.88L, Hemoglobin 8.4L, Hematocrit 27.4L, Mean Corpuscular Volume 71L, Mean Corpuscular Hemoglobin 21.7L, Mean Corpuscular Hemoglobin Concent 30.7L, Red Cell Distribution Width 20.0H, Platelet Count 735H, Mean Platelet Volume 5.4L, Neutrophils (%) (Auto) , Lymphocytes (%) (Auto) , Monocytes (%) (Auto) , Eosinophils (%) (Auto) , Basophils (%) (Auto) , Neutrophils % (Manual) [Pending], Lymphocytes % (Manual) [Pending], Platelet Estimate [Pending], Platelet Morphology [Pending], Prothrombin Time 11.4, Prothromb Time International Ratio 1.0, Sodium Level 137, Potassium Level 4.1, Chloride Level 102, Carbon Dioxide Level 28, Anion Gap 7, Blood Urea Nitrogen 10, Creatinine 0.7, Estimat Glomerular Filtration Rate > 60, Glucose Level 115H, Calcium Level 8.7, Iron Level 14L, Total Iron Binding Capacity 182L, Percent Iron Saturation 8L, Unsaturated Iron Binding 168, Bharathi ritin 37, Folate 5.3L Height (Feet): 5 Height (Inches): 6.00 Weight (Pounds): 130 Objective WDWN NAD clear breath sounds bilaterally without rhonchi or wheeze [id number] without MRG NABS nontender no HSM no CCE confused reduced ROM Assessment/Plan Status: progressing - progressing spoke with . patient not on antipsychotics prior to hosp. therefore nokt n.m.s. 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
[2020-05-26 12:00] VITALS: BP_SYST 150; BP_SYST 99; BP_DIAS 66; BP_DIAS 99
--- NOTE | 2020-05-26 12:05 | Infectious Diseases Prog Note ---
Assessment/Plan Assessment/Plan antibiotics : none A 1. gram positive UTI s/p rx 2. pneumonia s/p rx 3. seizures 4. leucocytosis improving 5. schizophrenia 6. abdominal malignancy P 1. observe off antibiotics 2. will follow up cultures Subjective Constitutional: Denies: fever, chills Respiratory: Denies: shortness of breath, dry cough Gastrointestinal/Abdominal: Denies: nausea, vomiting, diarrhea Musculoskeletal: Reports: pain Allergies: Coded Allergies: No Known Allergies (Unverified , 05/17/20) Objective Last 24 Hour Vital Signs Date Time Temp Pulse Resp B/P (MAP) Pulse Ox O2 Delivery O2 Flow Rate FiO2 05/26/20 09:00 Room Air 05/26/20 08:24 157/91 05/26/20 08:00 97.3 103 19 157/91 (113) 97 05/26/20 04:00 97.5 93 18 148/100 (116) 97 05/26/20 00:00 98.4 96 16 158/96 (116) 97 05/25/20 20:17 Room Air 05/25/20 20:00 97.8 60 18 159/110 (126) 97 05/25/20 16:10 98.6 96 20 156/106 (123) 98 05/25/20 12:22 98.0 95 20 149/72 (97) 98 Height (Feet): 5 Height (Inches): 6.00 Weight (Pounds): 130 Respiratory/Chest: lungs clear Cardiovascular: normal rate, regular rhythm, no gallop/murmur Abdomen: soft, non tender Extremities: no edema Laboratory Tests Test 05/26/20 07:47 White Blood Count 16.7 K/UL (4.8-10.8) H Red Blood Count 3.88 M/UL (4.20-5.40) L Hemoglobin 8.4 G/DL (12.0-16.0) L Hematocrit 27.4 % (37.0-47.0) L Mean Corpuscular Volume 71 FL (80-99) L Mean Corpuscular Hemoglobin 21.7 PG (27.0-31.0) L Mean Corpuscular Hemoglobin Concent 30.7 G/DL (32.0-36.0) L Red Cell Distribution Width 20.0 % (11.6-14.8) H Platelet Count 735 K/UL (150-450) H Mean Platelet Volume 5.4 FL (6.5-10.1) L Neutrophils (%) (Auto) % (45.0-75.0) Lymphocytes (%) (Auto) % (20.0-45.0) Monocytes (%) (Auto) % (1.0-10.0) Eosinophils (%) (Auto) % (0.0-3.0) Basophils (%) (Auto) % (0.0-2.0) Differential Total Cells Counted 100 Neutrophils % (Manual) 86 % (45-75) H Lymphocytes % (Manual) 7 % (20-45) L Monocytes % (Manual) 6 % (1-10) Eosinophils % (Manual) 1 % (0-3) Basophils % (Manual) 0 % (0-2) Band Neutrophils 0 % (0-8) Platelet Estimate Increased H Platelet Morphology Normal Polychromasia 1+ Hypochromasia 1+ Anisocytosis 2+ Microcytosis 1+ Prothrombin Time 11.4 SEC (9.30-11.50) Prothromb Time International Ratio 1.0 (0.9-1.1) Sodium Level 137 MMOL/L (136-145) Potassium Level 4.1 MMOL/L (3.5-5.1) Chloride Level 102 MMOL/L (98-107) Carbon Dioxide Level 28 MMOL/L (21-32) Anion Gap 7 mmol/L (5-15) Blood Urea Nitrogen 10 mg/dL (7-18) Creatinine 0.7 MG/DL (0.55-1.30) Estimat Glomerular Filtration Rate > 60 mL/min (>60) Glucose Level 115 MG/DL (74-106) H Calcium Level 8.7 MG/DL (8.5-10.1) Iron Level 14 ug/dL (50-175) L Total Iron Binding Capacity 182 ug/dL (250-450) L Percent Iron Saturation 8 % (15-50) L Unsaturated Iron Binding 168 ug/dL (112-346) Ferritin 37 NG/ML (8-388) Folate 5.3 NG/ML (8.6-58.9) L Current Medications Medications (Trade) Dose Ordered Sig/Laura Route PRN Reason Start Time Stop Time Status Last Admin Dose Admin Acetaminophen (Tylenol) 650 mg Q4H PRN ORAL Mild Pain (Pain Scale 1-3) 05/17/20 18:45 06/16/20 18:44 05/20/20 21:29 Al Hydroxide/Mg Hydroxide (Mylanta) 30 ml Q6H PRN ORAL heartburn 05/17/20 18:45 06/16/20 18:44 Clonidine HCl (Catapres Tab) 0.1 mg Q4H PRN ORAL For High Blood Pressure 05/18/20 19:00 08/16/20 18:59 05/26/20 08:24 Levetiracetam (Keppra) 500 mg Q12HR ORAL 05/17/20 21:00 07/01/20 20:59 05/26/20 08:23 Pantoprazole (Protonix) 40 mg DAILY ORAL 05/18/20 09:00 06/17/20 08:59 05/26/20 08:23 Risperidone (RisperDAL) 1 mg BEDTIME ORAL 05/20/20 21:00 07/04/20 20:59 05/25/20 21:33 Melvin Rabago MD May 26, 2020 12:05
[2020-05-26 16:00] VITALS: BP 142/95
--- NOTE | 2020-05-26 16:05 | NUR ---
[facility] [employer]XEDTO [facility] [phone]
--- NOTE | 2020-05-26 16:14 | NUR ---
CASE MANAGEMENT:REVIEW SI;GRAM POSITIVE UTI. SCHIZOPHRENIA. PNEUMONIA. SEIZURE. 98.4 104 19 99/66 97% ON RA WBC 16.7 H/H 8.4/24.4 PLT 735 IS;RISPERIDONE PO QD PROTONIX PO QD KEPPRA PO Q12 MED SURG STATUS DCP;FROM BOARD AND CARE
--- NOTE | 2020-05-26 19:33 | NUR ---
NURSE NOTES: Received patient comfortably sleeping, no SOB noted nor seizure episodes.
--- NOTE | 2020-05-26 19:37 | NUR ---
NURSE HAND-OFF: Important Events on Shift:N/A Patient Status: STABLE Diet: Regular, mechanical soft Pending Orders: n/a Pending Results/Labs:n/a Pending MD notification:n/a Latest Vital Signs: Temperature 98.3 , Pulse 97 , B/P 142 /95 , Respiratory Rate 20 , O2 SAT 95 , Room Air, O2 Flow Rate . Vital Sign Comment: stable Latest Funez Fall Score: 50 Fall Risk: High Risk Safety Measures: Call light Within Reach, Bed Alarm Zone 1, Side Rails Side Rails x2, Bed position Low and Locked. Fall Precautions: Yellow Socks Yellow Gown Door Sign Patient Fall Education Report given to DIANE Iraheta.
[2020-05-26 20:11] VITALS: BP 137/98
--- NOTE | 2020-05-26 23:16 | Psychiatric Progress Note ---
Psychiatry Progress Note Psychiatry Progress Note Subjective the pt received haldol dec 100mg monthly. per board and care nurse. the pt is improving gradually. the pt has no agitation. the pt is calm poor cognition Medications Current Medications Medications (Trade) Dose Ordered Sig/Laura Route PRN Reason Start Time Stop Time Status Last Admin Dose Admin Acetaminophen (Tylenol) 650 mg Q4H PRN ORAL Mild Pain (Pain Scale 1-3) 05/17/20 18:45 06/16/20 18:44 05/20/20 21:29 Al Hydroxide/Mg Hydroxide (Mylanta) 30 ml Q6H PRN ORAL heartburn 05/17/20 18:45 06/16/20 18:44 Clonidine HCl (Catapres Tab) 0.1 mg Q4H PRN ORAL For High Blood Pressure 05/18/20 19:00 08/16/20 18:59 05/26/20 08:24 Levetiracetam (Keppra) 500 mg Q12HR ORAL 05/17/20 21:00 07/01/20 20:59 05/26/20 20:53 Pantoprazole (Protonix) 40 mg DAILY ORAL 05/18/20 09:00 06/17/20 08:59 05/26/20 08:23 Risperidone (RisperDAL) 1 mg BEDTIME ORAL 05/20/20 21:00 07/04/20 20:59 05/26/20 20:53 Neurological/Psychiatric: Reports: anxiety, depressed Allergies: Coded Allergies: No Known Allergies (Unverified , 05/17/20) Objective Data Height (Feet): 5 Height (Inches): 6.00 Weight (Pounds): 130 General Appearance: WD/WN, no apparent distress, alert Appearance: no abnormalities noted Additional Comments: Mood is disoriented to situation. Mood is neutral to anxious. Affect is constricted, congruent with mood. Thought process is concrete. Thought content, no suicidal or homicidal ideation. Cognition is impaired. Insight and judgment is impaired. ASSESSMENT: [place] I Acute toxic encephalopathy due to UTI and pneumonia. Schizophrenia. [place] II Deferred. [place] III Seizure, UTI, and pneumonia. [place] IV Low. [place] V 20. PLAN: 1. Low-dose of antipsychotics. 2. Ativan p.r.n. 3. We will continue to follow and readjust the medications. Assessment/Plan Status: progressing - progressing spoke with . patient not on antipsychotics prior to hosp. therefore prakash kinsey. metabolic encephalopathy Ana Lopez MD May 26, 2020 23:16
[2020-05-27] VITALS (7 sets, daily range): BP systolic 131–167; BP diastolic 74–116
--- NOTE | 2020-05-27 07:01 | Consultation ---
History of Present Illness General Chief Complaint: Seizure Present Illness Allergies: Coded Allergies: No Known Allergies (Unverified , 05/17/20) Medication History Scheduled Cephalexin* (Keflex*), 500 MG ORAL EVERY 12 HOURS Levetiracetam (Keppra), 500 MG ORAL EVERY 12 HOURS Patient History Healthcare decision maker N Resuscitation status Advanced Directive on File Physical Exam Last 24 Hour Vital Signs Date Time Temp Pulse Resp B/P (MAP) Pulse Ox O2 Delivery O2 Flow Rate FiO2 05/27/20 04:49 97.6 95 18 140/101 (114) 97 05/27/20 00:12 96.6 90 18 141/98 (112) 97 05/26/20 20:30 Room Air 05/26/20 20:11 97.3 90 17 137/98 (111) 97 05/26/20 16:00 98.3 97 20 142/95 (111) 95 05/26/20 12:00 98.1 104 21 150/99 (116) 100 05/26/20 09:00 Room Air 05/26/20 08:24 157/91 05/26/20 08:00 97.3 103 19 157/91 (113) 97 Intake and Output 05/26/20 05/27/20 19:00 07:00 Intake Total 816 ml Balance 816 ml Intake Oral 816 ml # Voids 3 Laboratory Tests Test 05/26/20 07:47 White Blood Count 16.7 K/UL (4.8-10.8) H Red Blood Count 3.88 M/UL (4.20-5.40) L Hemoglobin 8.4 G/DL (12.0-16.0) L Hematocrit 27.4 % (37.0-47.0) L Mean Corpuscular Volume 71 FL (80-99) L Mean Corpuscular Hemoglobin 21.7 PG (27.0-31.0) L Mean Corpuscular Hemoglobin Concent 30.7 G/DL (32.0-36.0) L Red Cell Distribution Width 20.0 % (11.6-14.8) H Platelet Count 735 K/UL (150-450) H Mean Platelet Volume 5.4 FL (6.5-10.1) L Neutrophils (%) (Auto) % (45.0-75.0) Lymphocytes (%) (Auto) % (20.0-45.0) Monocytes (%) (Auto) % (1.0-10.0) Eosinophils (%) (Auto) % (0.0-3.0) Basophils (%) (Auto) % (0.0-2.0) Differential Total Cells Counted 100 Neutrophils % (Manual) 86 % (45-75) H Lymphocytes % (Manual) 7 % (20-45) L Monocytes % (Manual) 6 % (1-10) Eosinophils % (Manual) 1 % (0-3) Basophils % (Manual) 0 % (0-2) Band Neutrophils 0 % (0-8) Platelet Estimate Increased H Platelet Morphology Normal Polychromasia 1+ Hypochromasia 1+ Anisocytosis 2+ Microcytosis 1+ Prothrombin Time 11.4 SEC (9.30-11.50) Prothromb Time International Ratio 1.0 (0.9-1.1) Sodium Level 137 MMOL/L (136-145) Potassium Level 4.1 MMOL/L (3.5-5.1) Chloride Level 102 MMOL/L (98-107) Carbon Dioxide Level 28 MMOL/L (21-32) Anion Gap 7 mmol/L (5-15) Blood Urea Nitrogen 10 mg/dL (7-18) Creatinine 0.7 MG/DL (0.55-1.30) Estimat Glomerular Filtration Rate > 60 mL/min (>60) Glucose Level 115 MG/DL (74-106) H Calcium Level 8.7 MG/DL (8.5-10.1) Iron Level 14 ug/dL (50-175) L Total Iron Binding Capacity 182 ug/dL (250-450) L Percent Iron Saturation 8 % (15-50) L Unsaturated Iron Binding 168 ug/dL (112-346) Ferritin 37 NG/ML (8-388) Folate 5.3 NG/ML (8.6-58.9) L Height (Feet): 5 Height (Inches): 6.00 Weight (Pounds): 130 Medications Current Medications Medications (Trade) Dose Ordered Sig/Laura Route PRN Reason Start Time Stop Time Status Last Admin Dose Admin Acetaminophen (Tylenol) 650 mg Q4H PRN ORAL Mild Pain (Pain Scale 1-3) 05/17/20 18:45 06/16/20 18:44 05/20/20 21:29 Al Hydroxide/Mg Hydroxide (Mylanta) 30 ml Q6H PRN ORAL heartburn 05/17/20 18:45 06/16/20 18:44 Clonidine HCl (Catapres Tab) 0.1 mg Q4H PRN ORAL For High Blood Pressure 05/18/20 19:00 08/16/20 18:59 05/26/20 08:24 Levetiracetam (Keppra) 500 mg Q12HR ORAL 05/17/20 21:00 07/01/20 20:59 05/26/20 20:53 Pantoprazole (Protonix) 40 mg DAILY ORAL 05/18/20 09:00 06/17/20 08:59 05/26/20 08:23 Risperidone (RisperDAL) 1 mg BEDTIME ORAL 05/20/20 21:00 07/04/20 20:59 05/26/20 20:53 Assessment/Plan Assessment/Plan: Oncology Consultation REQ MD: Ruthy Fajardo RFC: Large colon/pelvic masss DOS: 05/27/2020 CC: Pelvic mass/colon mass HPI: The patient is a 44yo GP unknown who was admitted with possible seizure activity and a history of schizophrenia. She resides in [facility]. A 21cm pelvic mass and concurrent mass on colon were noted on imaging done yesterday. I was consulted for recommendations and plan of care regarding her pelvic mass. The patient denies any abdominal or pelvic pain. She reports irregular menses, LMP sometime in February. Periods were heavier in her youth, but have normalized to moderate flow. I was unable to obtain any other related history from her at this time. Seen by help desk coordinator Dr. Billings, recs noted, tumor markers ordered this am. ROS: Difficult to obtain. PMH: Schizophrenia. PSH: Unknown. MEDS: See chart for current inpatient meds. ALLERGIES: No known allergies. OBHX: Unable to obtain. SOCHX: Resides in a board and care. FAMHX: Unable to obtain. VITALS BP 144/62, P 97, RR 20, T 98.2, O2 97% RA EXAM: GEN: NAD, resting comfortably in bed, somewhat confused HEENT: OP clear, MMM CV: No tachycardia Pulm: Respirations even and unlabored Abd: Soft, +fullness throughout mid to upper abdomen, non-tender, +distention Pelvic: Internal exam deferred. External urine catheter in place Ext: SCDs in place, no calf TTP LABS: reviewed Imaging CT A/P 11.8 x 9 x 10.6 cm heterogeneous mass centered in the lumen of the ascending colon, highly suspicious for primary colon malignancy. There is suggestion of serosal invasion and there are a few prominent nonspecific regional nodes present. There is very mild distention of the colon proximal to this 21.4 10 x 16.2 cm anterior midline cystic pelvic mass. Although largely thin- walled and demonstrating only 2 small locules, the size is worrisome for gynecological malignancy. The technologist notes describes history of ovarian carcinoma. Corre late with of clinical history Assessment and Recs # Heterogenous mass in ascending colon concerning for colon cancer, also with pelvic mass, that is with 2 small locules concerning for help desk coordinator source --> tumor markers ordered, will reviewed --> rec as per gi eval --> help desk coordinator eval reviewed, will need help desk coordinator onc eval --> if clinically stable, need biopsy with gi or with surg team # Anemia of iron deficiency, very low ferritin --> iv iron has been started --> hgb 8.4 --> anemia panel noted --> transfuse prn # Leukocytosis likely due to malignancy --> wbc 16 # Thrombocytosis elev plt --> likely neoplasm related # Toxic met encephalopathy # Possible pneumonia # Possible uti # EEG with diffuse slowing # Dvt ppx scds Appreciate consultation and dw Calvin Strong MD May 27, 2020 07:01
--- NOTE | 2020-05-27 07:22 | NUR ---
HAND-OFF: Report given to Yamile Mera RN.
--- NOTE | 2020-05-27 07:46 | NUR ---
NURSE NOTES: Received report from DIANE Iraheta. Patient observed to be awake, alert and oriented x3. Seen lying in bed, currently on room air. No S/SX of SOB/Distress, no c/o any pain or discomfort. BP slightly elevated will provide medication. IV site located on LFA [address] intact and patent. Bed placed on lowest and locked, call light placed within reach and will continue to monitor for any changes in condition.
[2020-05-27 08:35] LABS: HEMOGLOBIN 8.5 G/DL (12.0-16.0); MEAN CORPUSCULAR VOLUME 70 FL (80-99); PLATELET COUNT 723 K/UL (150-450); RED BLOOD COUNT 3.87 M/UL (4.20-5.40); RED CELL DISTRIBUTION WIDTH 20.2 % (11.6-14.8); WHITE BLOOD COUNT 16.7 K/UL (4.8-10.8)
[2020-05-27 08:55] LABS: ANION GAP 8 mmol/L (5-15); BLOOD UREA NITROGEN 9 mg/dL (7-18); CALCIUM 8.9 MG/DL (8.5-10.1); CARBON DIOXIDE 26 MMOL/L (21-32); CHLORIDE 103 MMOL/L (98-107); CREATININE 0.7 MG/DL (0.55-1.30); POTASSIUM 3.8 MMOL/L (3.5-5.1); SODIUM 137 MMOL/L (136-145)
--- NOTE | 2020-05-27 12:16 | General Progress Note ---
Subjective Allergies: Coded Allergies: No Known Allergies (Unverified , 05/17/20) Subjective CT reviewed psych noted wbc still high, onc reviewed Objective Last 24 Hour Vital Signs Date Time Temp Pulse Resp B/P (MAP) Pulse Ox O2 Delivery O2 Flow Rate FiO2 05/27/20 09:00 Room Air 05/27/20 08:09 167/116 05/27/20 08:00 97.5 96 18 167/116 (133) 97 05/27/20 04:49 97.6 95 18 140/101 (114) 97 05/27/20 00:12 96.6 90 18 141/98 (112) 97 05/26/20 20:30 Room Air 05/26/20 20:11 97.3 90 17 137/98 (111) 97 05/26/20 16:00 98.3 97 20 142/95 (111) 95 Intake and Output 05/26/20 05/27/20 19:00 07:00 Intake Total 816 ml 360 ml Balance 816 ml 360 ml Intake Oral 816 ml Other 360 ml # Voids 3 3 Laboratory Tests 05/27/20 07:40: White Blood Count 16.7H, Red Blood Count 3.87L, Hemoglobin 8.5L, Hematocrit 27.0L, Mean Corpuscular Volume 70L, Mean Corpuscular Hemoglobin 22.0L, Mean Corpuscular Hemoglobin Concent 31.5L, Red Cell Distribution Width 20.2H, Platelet Count 723H, Mean Platelet Volume 5.0L, Neutrophils (%) (Auto) , Lymphocytes (%) (Auto) , Monocytes (%) (Auto) , Eosinophils (%) (Auto) , Basophils (%) (Auto) , Neutrophils % (Manual) [Pending], Lymphocytes % (Manual) [Pending], Platelet Estimate [Pending], Platelet Morphology [Pending], Sodium Level 137, Potassium Level 3.8, Chloride Level 103, Carbon Dioxide Level 26, Anion Gap 8, Blood Urea Nitrogen 9, Creatinine 0.7, Estimat Glomerular Filtration Rate > 60, Glucose Level 110H, Calcium Level 8.9, Alpha Fetoprotein [Pending], Carcinoembryonic Antigen [Pending], CA 15-3 Antigen [Pending], CA 19- 9 Antigen [Pending], CA 125 Antigen [Pending] Height (Feet): 5 Height (Inches): 6.00 Weight (Pounds): 130 Objective WDWN NAD clear breath sounds bilaterally without rhonchi or wheeze [id number] without MRG NABS nontender no HSM no CCE confused reduced ROM Assessment/Plan Status: progressing - progressing spoke with . patient not on antipsychotics prior to hosp. therefore nokt n.m.s. 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 colonscopy impression, plan, and exam edited and reviewed in detail care discussed with Maikel Walters MD May 27, 2020 12:16
--- NOTE | 2020-05-27 13:12 | Infectious Diseases Prog Note ---
Assessment/Plan Assessment/Plan A 1. UTI treated 2. pneumonia treated 3. seizures 4. leucocytosis increased 5. schizophrenia 6. Toxic encephalopathy P 1. Observe off antibiotic Subjective ROS Limited/Unobtainable: Yes Respiratory: Reports: no symptoms Gastrointestinal/Abdominal: Reports: no symptoms Allergies: Coded Allergies: No Known Allergies (Unverified , 05/17/20) Objective Last 24 Hour Vital Signs Date Time Temp Pulse Resp B/P (MAP) Pulse Ox O2 Delivery O2 Flow Rate FiO2 05/27/20 12:21 157/98 05/27/20 12:00 97.8 100 18 157/98 (117) 98 05/27/20 09:00 Room Air 05/27/20 08:09 167/116 05/27/20 08:00 97.5 96 18 167/116 (133) 97 05/27/20 04:49 97.6 95 18 140/101 (114) 97 05/27/20 00:12 96.6 90 18 141/98 (112) 97 05/26/20 20:30 Room Air 05/26/20 20:11 97.3 90 17 137/98 (111) 97 05/26/20 16:00 98.3 97 20 142/95 (111) 95 Height (Feet): 5 Height (Inches): 6.00 Weight (Pounds): 130 General Appearance: no acute distress HEENT: mucous membranes moist Respiratory/Chest: lungs clear Cardiovascular: normal rate Abdomen: soft, non tender Extremities: no edema Neurologic/Psychiatric: alert, responsive Laboratory Tests Test 05/27/20 07:40 White Blood Count 16.7 K/UL (4.8-10.8) H Red Blood Count 3.87 M/UL (4.20-5.40) L Hemoglobin 8.5 G/DL (12.0-16.0) L Hematocrit 27.0 % (37.0-47.0) L Mean Corpuscular Volume 70 FL (80-99) L Mean Corpuscular Hemoglobin 22.0 PG (27.0-31.0) L Mean Corpuscular Hemoglobin Concent 31.5 G/DL (32.0-36.0) L Red Cell Distribution Width 20.2 % (11.6-14.8) H Platelet Count 723 K/UL (150-450) H Mean Platelet Volume 5.0 FL (6.5-10.1) L Neutrophils (%) (Auto) % (45.0-75.0) Lymphocytes (%) (Auto) % (20.0-45.0) Monocytes (%) (Auto) % (1.0-10.0) Eosinophils (%) (Auto) % (0.0-3.0) Basophils (%) (Auto) % (0.0-2.0) Differential Total Cells Counted 100 Neutrophils % (Manual) 83 % (45-75) H Lymphocytes % (Manual) 13 % (20-45) L Monocytes % (Manual) 3 % (1-10) Eosinophils % (Manual) 1 % (0-3) Basophils % (Manual) 0 % (0-2) Band Neutrophils 0 % (0-8) Platelet Estimate Increased H Platelet Morphology Normal Hypochromasia 1+ Anisocytosis 2+ Microcytosis 2+ Ovalocytes Occasional Sodium Level 137 MMOL/L (136-145) Potassium Level 3.8 MMOL/L (3.5-5.1) Chloride Level 103 MMOL/L (98-107) Carbon Dioxide Level 26 MMOL/L (21-32) Anion Gap 8 mmol/L (5-15) Blood Urea Nitrogen 9 mg/dL (7-18) Creatinine 0.7 MG/DL (0.55-1.30) Estimat Glomerular Filtration Rate > 60 mL/min (>60) Glucose Level 110 MG/DL (74-106) H Calcium Level 8.9 MG/DL (8.5-10.1) Alpha Fetoprotein Pending Carcinoembryonic Antigen Pending CA 15-3 Antigen Pending CA 19-9 Antigen Pending CA 125 Antigen Pending Current Medications Medications (Trade) Dose Ordered Sig/Laura Route PRN Reason Start Time Stop Time Status Last Admin Dose Admin Acetaminophen (Tylenol) 650 mg Q4H PRN ORAL Mild Pain (Pain Scale 1-3) 05/17/20 18:45 06/16/20 18:44 05/20/20 21:29 Al Hydroxide/Mg Hydroxide (Mylanta) 30 ml Q6H PRN ORAL heartburn 05/17/20 18:45 06/16/20 18:44 Clonidine HCl (Catapres Tab) 0.1 mg Q4H PRN ORAL For High Blood Pressure 05/18/20 19:00 08/16/20 18:59 05/27/20 12:21 Iron Sucrose 100 mg/Sodium Chloride 60 ml @ 240 mls/hr BEDTIME IVPB 05/27/20 21:00 05/31/20 21:14 Levetiracetam (Keppra) 500 mg Q12HR ORAL 05/17/20 21:00 07/01/20 20:59 05/27/20 08:09 Pantoprazole (Protonix) 40 mg DAILY ORAL 05/18/20 09:00 06/17/20 08:59 05/27/20 08:09 Risperidone (RisperDAL) 1 mg BEDTIME ORAL 05/20/20 21:00 07/04/20 20:59 05/26/20 20:53 Cuauhtemoc Colindres MD May 27, 2020 13:12
--- NOTE | 2020-05-27 19:21 | NUR ---
NURSE HAND-OFF: Important Events on Shift:N/A Patient Status: STABLE Diet: MECH SOFT, REG Pending Orders: N/A Pending Results/Labs:N/A Pending MD notification:N/A Latest Vital Signs: Temperature 98.4 , Pulse 99 , B/P 157 /102 , Respiratory Rate 19 , O2 SAT 96 , Room Air, O2 Flow Rate . Vital Sign Comment: SLIGHTLTY ELEVATED BP CLONIDINE GIVEN Latest Funez Fall Score: 50 Fall Risk: High Risk Safety Measures: Call light Within Reach, Bed Alarm Zone 1, Side Rails Side Rails x2, Bed position Low and Locked. Fall Precautions: Yellow Socks Yellow Gown Door Sign Patient Fall Education Report given to DIANE CARRERA.
--- NOTE | 2020-05-27 19:30 | NUR ---
NURSE NOTES: Received patient in bed. A&OX2. IV site patent and intact. Seizure precaution, side rail padded. Bed in lowest position. Call light within reach. Will continue to monitor.
--- NOTE | 2020-05-27 21:04 | Psychiatric Progress Note ---
Psychiatry Progress Note Psychiatry Progress Note Subjective the pt received haldol dec 100mg monthly. per board and care nurse. the pt is improving gradually. the pt has no agitation. the pt is calm poor cognition Medications Current Medications Medications (Trade) Dose Ordered Sig/Laura Route PRN Reason Start Time Stop Time Status Last Admin Dose Admin Acetaminophen (Tylenol) 650 mg Q4H PRN ORAL Mild Pain (Pain Scale 1-3) 05/17/20 18:45 06/16/20 18:44 05/20/20 21:29 Al Hydroxide/Mg Hydroxide (Mylanta) 30 ml Q6H PRN ORAL heartburn 05/17/20 18:45 06/16/20 18:44 Clonidine HCl (Catapres Tab) 0.1 mg Q4H PRN ORAL For High Blood Pressure 05/18/20 19:00 08/16/20 18:59 05/27/20 16:44 Iron Sucrose 100 mg/Sodium Chloride 60 ml @ 240 mls/hr BEDTIME IVPB 05/27/20 21:00 05/31/20 21:14 Levetiracetam (Keppra) 500 mg Q12HR ORAL 05/17/20 21:00 07/01/20 20:59 05/27/20 08:09 Pantoprazole (Protonix) 40 mg DAILY ORAL 05/18/20 09:00 06/17/20 08:59 05/27/20 08:09 Risperidone (RisperDAL) 1 mg BEDTIME ORAL 05/20/20 21:00 07/04/20 20:59 05/26/20 20:53 Neurological/Psychiatric: Reports: anxiety, depressed Allergies: Coded Allergies: No Known Allergies (Unverified , 05/17/20) Objective Data Height (Feet): 5 Height (Inches): 6.00 Weight (Pounds): 130 General Appearance: WD/WN, no apparent distress, alert Appearance: no abnormalities noted Additional Comments: Mood is disoriented to situation. Mood is neutral to anxious. Affect is constricted, congruent with mood. Thought process is concrete. Thought content, no suicidal or homicidal ideation. Cognition is impaired. Insight and judgment is impaired. ASSESSMENT: [place] I Acute toxic encephalopathy due to UTI and pneumonia. Schizophrenia. [place] II Deferred. [place] III Seizure, UTI, and pneumonia. [place] IV Low. [place] V 20. PLAN: 1. Low-dose of antipsychotics. 2. Ativan p.r.n. 3. We will continue to follow and readjust the medications. Assessment/Plan Status: progressing - progressing spoke with . patient not on antipsychotics prior to hosp. therefore prakash kinsey. metabolic encephalopathy Ana Lopez MD May 27, 2020 21:04
[2020-05-27] MEDS: Iron Sucrose 100 MG in NS 55 ML IVPB SCH (21:31)
[2020-05-28] VITALS: BP 152/98
[2020-05-28 04:00] VITALS: BP 158/94
[2020-05-28 06:36] LABS: BASOPHILS % (AUTO) 0.7 % (0.0-2.0); EOSINOPHILS % (AUTO) 0.9 % (0.0-3.0); HEMOGLOBIN 8.4 G/DL (12.0-16.0); MEAN CORPUSCULAR VOLUME 71 FL (80-99); MONOCYTES % (AUTO) 5.3 % (1.0-10.0); NEUTROPHILS % (AUTO) 84.2 % (45.0-75.0); PLATELET COUNT 703 K/UL (150-450); RED BLOOD COUNT 3.79 M/UL (4.20-5.40); RED CELL DISTRIBUTION WIDTH 19.4 % (11.6-14.8); WHITE BLOOD COUNT 15.2 K/UL (4.8-10.8)
[2020-05-28 06:58] LABS: BLOOD UREA NITROGEN 11 mg/dL (7-18); CALCIUM 8.5 MG/DL (8.5-10.1); CARBON DIOXIDE 30 MMOL/L (21-32); CHLORIDE 103 MMOL/L (98-107); CREATININE 0.6 MG/DL (0.55-1.30); POTASSIUM 3.8 MMOL/L (3.5-5.1); SODIUM 138 MMOL/L (136-145)
[2020-05-28 07:12] LABS: ANION GAP 5 mmol/L (5-15)
--- NOTE | 2020-05-28 07:20 | NUR ---
NURSE HAND-OFF: Important Events on Shift: Patient made BM today. Patient Status: Diet: Regular, mech soft Pending Orders: Pending Results/Labs: Pending MD notification Latest Vital Signs: Temperature 98.4 , Pulse 101 , B/P 158 /94 , Respiratory Rate 20 , O2 SAT 98 , Room Air, O2 Flow Rate . Vital Sign Comment: Latest Funez Fall Score: 50 Fall Risk: High Risk Safety Measures: Call light Within Reach, Bed Alarm Zone 1, Side Rails Side Rails x2, Bed position Low and Locked. Fall Precautions: Yellow Socks Yellow Gown Door Sign Patient Fall Education Report given to Safia CONTRERAS.
--- NOTE | 2020-05-28 07:46 | NUR ---
NURSE NOTES: Received report from DIANE Zacarias. Patient observed to be asleep with hob slightly elevated, currently on room air. No s/sx of SOB/Distress, no c/o any pain or discomfort. Patient with IV site located on LFA [address] and intact. Bed placed on lowest and locked, call light placed within reach and will continue to monitor for any changes in condition.
[2020-05-28 08:00] VITALS: BP 154/104
--- NOTE | 2020-05-28 09:37 | Hematology/Onc Progress Note ---
Assessment/Plan Assessment/Plan LABS: reviewed Imaging CT A/P 11.8 x 9 x 10.6 cm heterogeneous mass centered in the lumen of the ascending colon, highly suspicious for primary colon malignancy. There is suggestion of serosal invasion and there are a few prominent nonspecific regional nodes present. There is very mild distention of the colon proximal to this 21.4 10 x 16.2 cm anterior midline cystic pelvic mass. Although largely thin- walled and demonstrating only 2 small locules, the size is worrisome for gynecological malignancy. The technologist notes describes history of ovarian carcinoma. Corre late with of clinical history Assessment and Recs # Heterogenous mass in ascending colon concerning for colon cancer, also with pelvic mass, that is with 2 small locules concerning for cardiac catheterization technologist source --> tumor markers ordered, will reviewed --> rec as per gi eval --> cardiac catheterization technologist eval reviewed, will need cardiac catheterization technologist onc eval --> if clinically stable, need biopsy with gi or with surg team # Anemia of iron deficiency, very low ferritin --> iv iron has been started --> hgb 8.4 --> anemia panel noted --> transfuse prn # Leukocytosis likely due to malignancy --> wbc 16-->15 --> ABX prn # Thrombocytosis elev plt --> likely neoplasm related # Toxic met encephalopathy # Possible pneumonia # Possible uti # EEG with diffuse slowing # Dvt ppx scds Appreciate consultation and dw Subjective Constitutional: Denies: no symptoms, chills, fever, malaise, weakness, other HEENT: Denies: no symptoms, eye pain, blurred vision, tearing, double vision, ear pain, ear discharge, nose pain, nose congestion, throat pain, throat swelling, mouth pain, mouth swelling, other Cardiovascular: Denies: no symptoms, chest pain, edema, irregular heart rate, lightheadedness, palpitations, syncope, other Respiratory: Denies: no symptoms, cough, shortness of breath, SOB with excertion, SOB at rest, sputum, wheezing, other Gastrointestinal/Abdominal: Denies: no symptoms, abdomen distended, abdominal pain, black stools, tarry stools, blood in stool, constipated, diarrhea, difficulty swallowing, nausea, poor appetite, poor fluid intake, rectal bleeding, vomiting, other Genitourinary: Denies: no symptoms, burning, discharge, frequency, flank pain, hematuria, incontinence, pain, urgency, other Neurologic/Psychiatric: Denies: no symptoms, anxiety, depressed, emotional problems, headache, numbness, paresthesia, pre-existing deficit, seizure, tingling, tremors, weakness, other Endocrine: Denies: no symptoms, excessive sweating, flushing, intolerance to cold, intolerance to heat, increased hunger, increased thirst, increased urine, unexplained weight gain, unexplained weight loss, other Allergies: Coded Allergies: No Known Allergies (Unverified , 05/17/20) Subjective 05/28 labs have been reviewed, meds noted, no bleeding, hgb 8.4, plt 703 Objective Objective Current Medications Medications (Trade) Dose Ordered Sig/Laura Route PRN Reason Start Time Stop Time Status Last Admin Dose Admin Acetaminophen (Tylenol) 650 mg Q4H PRN ORAL Mild Pain (Pain Scale 1-3) 05/17/20 18:45 06/16/20 18:44 05/20/20 21:29 Al Hydroxide/Mg Hydroxide (Mylanta) 30 ml Q6H PRN ORAL heartburn 05/17/20 18:45 06/16/20 18:44 Clonidine HCl (Catapres Tab) 0.1 mg Q4H PRN ORAL For High Blood Pressure 05/18/20 19:00 08/16/20 18:59 05/28/20 08:14 Iron Sucrose 100 mg/Sodium Chloride 60 ml @ 240 mls/hr BEDTIME IVPB 05/27/20 21:00 05/31/20 21:14 05/27/20 21:31 Levetiracetam (Keppra) 500 mg Q12HR ORAL 05/17/20 21:00 07/01/20 20:59 05/28/20 08:14 Pantoprazole (Protonix) 40 mg DAILY ORAL 05/18/20 09:00 06/17/20 08:59 05/28/20 08:14 Risperidone (RisperDAL) 1 mg BEDTIME ORAL 05/20/20 21:00 07/04/20 20:59 05/27/20 21:31 Last 24 Hour Vital Signs Date Time Temp Pulse Resp B/P (MAP) Pulse Ox O2 Delivery O2 Flow Rate FiO2 05/28/20 08:14 154/104 05/28/20 04:00 98.4 101 20 158/94 (115) 98 05/28/20 00:00 98.6 100 20 152/98 (116) 98 05/27/20 21:00 Room Air 05/27/20 20:10 98.2 94 18 148/92 (110) 99 05/27/20 19:12 98.4 99 19 157/102 (120) 96 05/27/20 16:44 165/99 05/27/20 16:00 98.4 99 18 165/99 (121) 96 05/27/20 12:21 157/98 05/27/20 12:00 97.8 100 18 157/98 (117) 98 05/27/20 09:00 Room Air 05/27/20 08:09 167/116 05/27/20 08:00 97.5 96 18 167/116 (133) 97 05/27/20 04:49 97.6 95 18 140/101 (114) 97 05/27/20 00:12 96.6 90 18 141/98 (112) 97 05/26/20 20:30 Room Air 05/26/20 20:11 97.3 90 17 137/98 (111) 97 05/26/20 16:00 98.3 97 20 142/95 (111) 95 05/26/20 12:00 98.1 104 21 150/99 (116) 100 Intake and Output 05/27/20 05/28/20 19:00 07:00 Intake Total 1000 ml 540 ml Output Total 900 ml Balance 1000 ml -360 ml Intake Oral 1000 ml 480 ml IV Total 60 ml Output Urine Total 900 ml # Voids 3 3 # Bowel Movements 2 Labs Test 05/26/20 07:47 05/27/20 07:40 05/28/20 05:46 White Blood Count 16.7 K/UL (4.8-10.8) 16.7 K/UL (4.8-10.8) 15.2 K/UL (4.8-10.8) Red Blood Count 3.88 M/UL (4.20-5.40) 3.87 M/UL (4.20-5.40) 3.79 M/UL (4.20-5.40) Hemoglobin 8.4 G/DL (12.0-16.0) 8.5 G/DL (12.0-16.0) 8.4 G/DL (12.0-16.0) Hematocrit 27.4 % (37.0-47.0) 27.0 % (37.0-47.0) 27.0 % (37.0-47.0) Mean Corpuscular Volume 71 FL (80-99) 70 FL (80-99) 71 FL (80-99) Mean Corpuscular Hemoglobin 21.7 PG (27.0-31.0) 22.0 PG (27.0-31.0) 22.1 PG (27.0-31.0) Mean Corpuscular Hemoglobin Concent 30.7 G/DL (32.0-36.0) 31.5 G/DL (32.0-36.0) 31.0 G/DL (32.0-36.0) Red Cell Distribution Width 20.0 % (11.6-14.8) 20.2 % (11.6-14.8) 19.4 % (11.6-14.8) Platelet Count 735 K/UL (150-450) 723 K/UL (150-450) 703 K/UL (150-450) Mean Platelet Volume 5.4 FL (6.5-10.1) 5.0 FL (6.5-10.1) 5.5 FL (6.5-10.1) Neutrophils (%) (Auto) % (45.0-75.0) % (45.0-75.0) 84.2 % (45.0-75.0) Lymphocytes (%) (Auto) % (20.0-45.0) % (20.0-45.0) 9.0 % (20.0-45.0) Monocytes (%) (Auto) % (1.0-10.0) % (1.0-10.0) 5.3 % (1.0-10.0) Eosinophils (%) (Auto) % (0.0-3.0) % (0.0-3.0) 0.9 % (0.0-3.0) Basophils (%) (Auto) % (0.0-2.0) % (0.0-2.0) 0.7 % (0.0-2.0) Differential Total Cells Counted 100 100 Neutrophils % (Manual) 86 % (45-75) 83 % (45-75) Lymphocytes % (Manual) 7 % (20-45) 13 % (20-45) Monocytes % (Manual) 6 % (1-10) 3 % (1-10) Eosinophils % (Manual) 1 % (0-3) 1 % (0-3) Basophils % (Manual) 0 % (0-2) 0 % (0-2) Band Neutrophils 0 % (0-8) 0 % (0-8) Platelet Estimate Increased Increased Platelet Morphology Normal Normal Polychromasia 1+ Hypochromasia 1+ 1+ Anisocytosis 2+ 2+ Microcytosis 1+ 2+ Prothrombin Time 11.4 SEC (9.30-11.50) Prothromb Time International Ratio 1.0 (0.9-1.1) Sodium Level 137 MMOL/L (136-145) 137 MMOL/L (136-145) 138 MMOL/L (136-145) Potassium Level 4.1 MMOL/L (3.5-5.1) 3.8 MMOL/L (3.5-5.1) 3.8 MMOL/L (3.5-5.1) Chloride Level 102 MMOL/L (98-107) 103 MMOL/L (98-107) 103 MMOL/L (98-107) Carbon Dioxide Level 28 MMOL/L (21-32) 26 MMOL/L (21-32) 30 MMOL/L (21-32) Anion Gap 7 mmol/L (5-15) 8 mmol/L (5-15) 5 mmol/L (5-15) Blood Urea Nitrogen 10 mg/dL (7-18) 9 mg/dL (7-18) 11 mg/dL (7-18) Creatinine 0.7 MG/DL (0.55-1.30) 0.7 MG/DL (0.55-1.30) 0.6 MG/DL (0.55-1.30) Estimat Glomerular Filtration Rate > 60 mL/min (>60) > 60 mL/min (>60) > 60 mL/min (>60) Glucose Level 115 MG/DL (74-106) 110 MG/DL (74-106) 106 MG/DL (74-106) Calcium Level 8.7 MG/DL (8.5-10.1) 8.9 MG/DL (8.5-10.1) 8.5 MG/DL (8.5-10.1) Iron Level 14 ug/dL (50-175) Total Iron Binding Capacity 182 ug/dL (250-450) Percent Iron Saturation 8 % (15-50) Unsaturated Iron Binding 168 ug/dL (112-346) Ferritin 37 NG/ML (8-388) Folate 5.3 NG/ML (8.6-58.9) Ovalocytes Occasional Height (Feet): 5 Height (Inches): 6.00 Weight (Pounds): 130 Objective EXAM: GEN: NAD, resting comfortably in bed, somewhat confused HEENT: OP clear, MMM CV: No tachycardia Pulm: Respirations even and unlabored Abd: Soft, +fullness throughout mid to upper abdomen, non-tender, +distention Pelvic: Internal exam deferred. External urine catheter in place Ext: SCDs in place, no calf TTP Calvin Velasquez MD May 28, 2020 09:37
--- NOTE | 2020-05-28 11:33 | Infectious Diseases Prog Note ---
Assessment/Plan Assessment/Plan antibiotics : none A 1. gram positive UTI s/p rx 2. pneumonia s/p rx 3. seizures 4. leucocytosis improving 5. schizophrenia 6. abdominal malignancy P 1. observe off antibiotics 2. will follow up cultures Subjective Constitutional: Denies: fever, chills Respiratory: Reports: shortness of breath, dry cough Gastrointestinal/Abdominal: Reports: nausea, vomiting; Denies: diarrhea Musculoskeletal: Reports: pain Allergies: Coded Allergies: No Known Allergies (Unverified , 05/17/20) Objective Last 24 Hour Vital Signs Date Time Temp Pulse Resp B/P (MAP) Pulse Ox O2 Delivery O2 Flow Rate FiO2 05/28/20 09:00 Room Air 05/28/20 08:14 154/104 05/28/20 08:00 98.2 108 20 154/104 (121) 98 05/28/20 04:00 98.4 101 20 158/94 (115) 98 05/28/20 00:00 98.6 100 20 152/98 (116) 98 05/27/20 21:00 Room Air 05/27/20 20:10 98.2 94 18 148/92 (110) 99 05/27/20 19:12 98.4 99 19 157/102 (120) 96 05/27/20 16:44 165/99 05/27/20 16:00 98.4 99 18 165/99 (121) 96 05/27/20 12:21 157/98 05/27/20 12:00 97.8 100 18 157/98 (117) 98 Height (Feet): 5 Height (Inches): 6.00 Weight (Pounds): 130 Respiratory/Chest: lungs clear Cardiovascular: normal rate, regular rhythm, no gallop/murmur Abdomen: soft, non tender Extremities: no edema Laboratory Tests Test 05/28/20 05:46 White Blood Count 15.2 K/UL (4.8-10.8) H Red Blood Count 3.79 M/UL (4.20-5.40) L Hemoglobin 8.4 G/DL (12.0-16.0) L Hematocrit 27.0 % (37.0-47.0) L Mean Corpuscular Volume 71 FL (80-99) L Mean Corpuscular Hemoglobin 22.1 PG (27.0-31.0) L Mean Corpuscular Hemoglobin Concent 31.0 G/DL (32.0-36.0) L Red Cell Distribution Width 19.4 % (11.6-14.8) H Platelet Count 703 K/UL (150-450) H Mean Platelet Volume 5.5 FL (6.5-10.1) L Neutrophils (%) (Auto) 84.2 % (45.0-75.0) H Lymphocytes (%) (Auto) 9.0 % (20.0-45.0) L Monocytes (%) (Auto) 5.3 % (1.0-10.0) Eosinophils (%) (Auto) 0.9 % (0.0-3.0) Basophils (%) (Auto) 0.7 % (0.0-2.0) Sodium Level 138 MMOL/L (136-145) Potassium Level 3.8 MMOL/L (3.5-5.1) Chloride Level 103 MMOL/L (98-107) Carbon Dioxide Level 30 MMOL/L (21-32) Anion Gap 5 mmol/L (5-15) Blood Urea Nitrogen 11 mg/dL (7-18) Creatinine 0.6 MG/DL (0.55-1.30) Estimat Glomerular Filtration Rate > 60 mL/min (>60) Glucose Level 106 MG/DL (74-106) Calcium Level 8.5 MG/DL (8.5-10.1) Current Medications Medications (Trade) Dose Ordered Sig/Laura Route PRN Reason Start Time Stop Time Status Last Admin Dose Admin Acetaminophen (Tylenol) 650 mg Q4H PRN ORAL Mild Pain (Pain Scale 1-3) 05/17/20 18:45 06/16/20 18:44 05/20/20 21:29 Al Hydroxide/Mg Hydroxide (Mylanta) 30 ml Q6H PRN ORAL heartburn 05/17/20 18:45 06/16/20 18:44 Clonidine HCl (Catapres Tab) 0.1 mg Q4H PRN ORAL For High Blood Pressure 05/18/20 19:00 08/16/20 18:59 05/28/20 08:14 Iron Sucrose 100 mg/Sodium Chloride 60 ml @ 240 mls/hr BEDTIME IVPB 05/27/20 21:00 05/31/20 21:14 05/27/20 21:31 Levetiracetam (Keppra) 500 mg Q12HR ORAL 05/17/20 21:00 07/01/20 20:59 05/28/20 08:14 Pantoprazole (Protonix) 40 mg DAILY ORAL 05/18/20 09:00 06/17/20 08:59 05/28/20 08:14 Risperidone (RisperDAL) 1 mg BEDTIME ORAL 05/20/20 21:00 07/04/20 20:59 05/27/20 21:31 Melvin Rabago MD May 28, 2020 11:33
[2020-05-28 12:00] VITALS: BP 153/105
--- NOTE | 2020-05-28 12:20 | General Progress Note ---
Subjective Allergies: Coded Allergies: No Known Allergies (Unverified , 05/17/20) Subjective CT reviewed psych noted wbc still high, onc reviewed Objective Last 24 Hour Vital Signs Date Time Temp Pulse Resp B/P (MAP) Pulse Ox O2 Delivery O2 Flow Rate FiO2 05/28/20 12:00 96.9 100 20 153/105 (121) 100 05/28/20 09:00 Room Air 05/28/20 08:14 154/104 05/28/20 08:00 98.2 108 20 154/104 (121) 98 05/28/20 04:00 98.4 101 20 158/94 (115) 98 05/28/20 00:00 98.6 100 20 152/98 (116) 98 05/27/20 21:00 Room Air 05/27/20 20:10 98.2 94 18 148/92 (110) 99 05/27/20 19:12 98.4 99 19 157/102 (120) 96 05/27/20 16:44 165/99 05/27/20 16:00 98.4 99 18 165/99 (121) 96 05/27/20 12:21 157/98 Intake and Output 05/27/20 05/28/20 18:59 06:59 Intake Total 1000 ml 540 ml Output Total 900 ml Balance 1000 ml -360 ml Intake Oral 1000 ml 480 ml IV Total 60 ml Output Urine Total 900 ml # Voids 3 3 # Bowel Movements 2 Laboratory Tests 05/28/20 05:46: White Blood Count 15.2H, Red Blood Count 3.79L, Hemoglobin 8.4L, Hematocrit 27.0L, Mean Corpuscular Volume 71L, Mean Corpuscular Hemoglobin 22.1L, Mean Corpuscular Hemoglobin Concent 31.0L, Red Cell Distribution Width 19.4H, Platelet Count 703H, Mean Platelet Volume 5.5L, Neutrophils (%) (Auto) 84.2H, Lymphocytes (%) (Auto) 9.0L, Monocytes (%) (Auto) 5.3, Eosinophils (%) (Auto) 0.9, Basophils (%) (Auto) 0.7, Sodium Level 138, Potassium Level 3.8, Chloride Level 103, Carbon Dioxide Level 30, Anion Gap 5, Blood Urea Nitrogen 11, Creatinine 0.6, Estimat Glomerular Filtration Rate > 60, Glucose Level 106, Calcium Level 8.5 Height (Feet): 5 Height (Inches): 6.00 Weight (Pounds): 130 Objective WDWN NAD clear breath sounds bilaterally without rhonchi or wheeze [id number] without MRG NABS nontender no HSM no CCE confused reduced ROM Assessment/Plan Status: progressing - progressing spoke with . patient not on antipsychotics prior to hosp. therefore nokt n.m.s. 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 colonscopy /called again impression, plan, and exam edited and reviewed in detail care discussed with Maikel Walters MD May 28, 2020 12:20
--- NOTE | 2020-05-28 13:40 | Cardiology Report ---
APPROVED REPORT EKG Measurement Heart [id number] <Conclusion> Sinus rhythm with short GA Cannot rule out Inferior infarct, age undetermined Anterior infarct, age undetermined Abnormal ECG
--- NOTE | 2020-05-28 14:14 | NUR ---
NURSE NOTES: Spoke to Jazzy patient's daughter. Mentioned that would prefer to have patient sent home if d/c, and has home health set up and ready for father ( [facility]) Addendum: 05/28/20 at 1611 by Yessenia Ivy RN wrong pt
[2020-05-28 16:00] VITALS: BP 125/89
--- NOTE | 2020-05-28 16:11 | NUR ---
CASE MANAGEMENT:REVIEW SI;GRAM POSITIVE UTI. SCHIZOPHRENIA. PNEUMONIA. SEIZURE. 98.4 108 20 154/104 98% ON RA WBC 15.2 H/H 8.4/27.0 PLT 703 IS;IRON SUCROSE IV CLONIDINE PO Q4 PRN PROTONIX PO QD KEPPRA PO Q12 MED SURG STATUS DCP;FROM BOARD AND CARE
--- NOTE | 2020-05-28 17:47 | NUR ---
NURSE NOTES: Requested colonoscopy and pathology report from [facility] per Dr. Ruffin's order.
--- NOTE | 2020-05-28 18:21 | NUR ---
NURSE NOTES: Spoke to Eduardo from [facility] was notified no history of stay or procedures were done for pt at their hospital, but she mentioned she will continue to look. Notified Dr. Ruffin
--- NOTE | 2020-05-28 19:16 | NUR ---
NURSE HAND-OFF: Important Events on Shift:Medical Records requested from [facility] Patient Status: stable Diet: reg mech soft Pending Orders: n/a Pending Results/Labs:n/a Pending MD notification:n/a Latest Vital Signs: Temperature 99.0 , Pulse 95 , B/P 125 /89 , Respiratory Rate 20 , O2 SAT 98 , Room Air, O2 Flow Rate . Vital Sign Comment: stable Latest Funez Fall Score: 50 Fall Risk: High Risk Safety Measures: Call light Within Reach, Bed Alarm Zone 1, Side Rails Side Rails x2, Bed position Low and Locked. Fall Precautions: Yellow Socks Yellow Gown Door Sign Patient Fall Education Report given to DIANE Diaz.
--- NOTE | 2020-05-28 19:30 | NUR ---
NURSE NOTES: Received patient in bed, awake, alert, oriented x 3, tachy, on room air, purwick is on, IV site is clean dry and intact, per Dr. Brizuela faxed request for colonoscopy and pathology report to [facility], received fax back, was notified. Call light is within reach, bed is lowered, locked, alarm is on, will continue to monitor for comfort and safety.
[2020-05-28 20:00] VITALS: BP 138/84
--- NOTE | 2020-05-28 20:15 | Psychiatric Progress Note ---
Psychiatry Progress Note Psychiatry Progress Note Subjective the pt received haldol dec 100mg monthly. per board and care nurse. the pt is improving gradually. the pt has no agitation. the pt is calm poor cognition Medications Current Medications Medications (Trade) Dose Ordered Sig/Laura Route PRN Reason Start Time Stop Time Status Last Admin Dose Admin Acetaminophen (Tylenol) 650 mg Q4H PRN ORAL Mild Pain (Pain Scale 1-3) 05/17/20 18:45 06/16/20 18:44 05/20/20 21:29 Al Hydroxide/Mg Hydroxide (Mylanta) 30 ml Q6H PRN ORAL heartburn 05/17/20 18:45 06/16/20 18:44 Clonidine HCl (Catapres Tab) 0.1 mg Q4H PRN ORAL For High Blood Pressure 05/18/20 19:00 08/16/20 18:59 05/28/20 13:12 Iron Sucrose 100 mg/Sodium Chloride 60 ml @ 240 mls/hr BEDTIME IVPB 05/27/20 21:00 05/31/20 21:14 05/27/20 21:31 Levetiracetam (Keppra) 500 mg Q12HR ORAL 05/17/20 21:00 07/01/20 20:59 05/28/20 08:14 Pantoprazole (Protonix) 40 mg DAILY ORAL 05/18/20 09:00 06/17/20 08:59 05/28/20 08:14 Risperidone (RisperDAL) 1 mg BEDTIME ORAL 05/20/20 21:00 07/04/20 20:59 05/27/20 21:31 Neurological/Psychiatric: Denies: no symptoms, anxiety, depressed, emotional problems, headache, numbness, paresthesia, pre-existing deficit, seizure, tingling, tremors, weakness, other Allergies: Coded Allergies: No Known Allergies (Unverified , 05/17/20) Objective Data Height (Feet): 5 Height (Inches): 6.00 Weight (Pounds): 130 General Appearance: WD/WN, no apparent distress, alert Appearance: no abnormalities noted Additional Comments: Mood is disoriented to situation. Mood is neutral to anxious. Affect is constricted, congruent with mood. Thought process is concrete. Thought content, no suicidal or homicidal ideation. Cognition is impaired. Insight and judgment is impaired. ASSESSMENT: [place] I Acute toxic encephalopathy due to UTI and pneumonia. Schizophrenia. [place] II Deferred. [place] III Seizure, UTI, and pneumonia. [place] IV Low. [place] V 20. PLAN: 1. Low-dose of antipsychotics. 2. Ativan p.r.n. 3. We will continue to follow and readjust the medications. Assessment/Plan Status: progressing - progressing spoke with . patient not on antipsychotics prior to hosp. therefore nokt n.m.s. metabolic encephalopathy Ana Lopez MD May 28, 2020 20:15
[2020-05-28] MEDS: Iron Sucrose 100 MG in NS 55 ML IVPB SCH (21:00)
--- NOTE | 2020-05-28 23:50 | General Progress Note ---
Subjective Allergies: Coded Allergies: No Known Allergies (Unverified , 05/17/20) Objective Last 24 Hour Vital Signs Date Time Temp Pulse Resp B/P (MAP) Pulse Ox O2 Delivery O2 Flow Rate FiO2 05/28/20 22:22 Room Air 05/28/20 20:00 98.9 84 18 138/84 (102) 97 05/28/20 16:00 99.0 95 20 125/89 (101) 98 05/28/20 13:12 153/105 05/28/20 12:00 96.9 100 20 153/105 (121) 100 05/28/20 09:00 Room Air 05/28/20 08:14 154/104 05/28/20 08:00 98.2 108 20 154/104 (121) 98 05/28/20 04:00 98.4 101 20 158/94 (115) 98 05/28/20 00:00 98.6 100 20 152/98 (116) 98 Intake and Output 05/27/20 05/28/20 19:00 07:00 Intake Total 1000 ml 540 ml Output Total 900 ml Balance 1000 ml -360 ml Intake Oral 1000 ml 480 ml IV Total 60 ml Output Urine Total 900 ml # Voids 3 3 # Bowel Movements 2 Laboratory Tests 05/28/20 05:46: White Blood Count 15.2H, Red Blood Count 3.79L, Hemoglobin 8.4L, Hematocrit 27.0L, Mean Corpuscular Volume 71L, Mean Corpuscular Hemoglobin 22.1L, Mean Corpuscular Hemoglobin Concent 31.0L, Red Cell Distribution Width 19.4H, Platelet Count 703H, Mean Platelet Volume 5.5L, Neutrophils (%) (Auto) 84.2H, Lymphocytes (%) (Auto) 9.0L, Monocytes (%) (Auto) 5.3, Eosinophils (%) (Auto) 0.9, Basophils (%) (Auto) 0.7, Sodium Level 138, Potassium Level 3.8, Chloride Level 103, Carbon Dioxide Level 30, Anion Gap 5, Blood Urea Nitrogen 11, Creatinine 0.6, Estimat Glomerular Filtration Rate > 60, Glucose Level 106, Calcium Level 8.5 Height (Feet): 5 Height (Inches): 6.00 Weight (Pounds): 130 Assessment/Plan Status: progressing - progressing spoke with . patient not on antipsychotics prior to hosp. therefore prakash n.m.s. 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
[2020-05-29 04:00] VITALS: BP 139/74
--- NOTE | 2020-05-29 06:56 | General Progress Note ---
Subjective ROS Limited/Unobtainable: No Allergies: Coded Allergies: No Known Allergies (Unverified , 05/17/20) Objective Last 24 Hour Vital Signs Date Time Temp Pulse Resp B/P (MAP) Pulse Ox O2 Delivery O2 Flow Rate FiO2 05/29/20 04:00 98.6 100 20 139/74 (95) 97 05/28/20 22:22 Room Air 05/28/20 20:00 98.9 84 18 138/84 (102) 97 05/28/20 16:00 99.0 95 20 125/89 (101) 98 05/28/20 13:12 153/105 05/28/20 12:00 96.9 100 20 153/105 (121) 100 05/28/20 09:00 Room Air 05/28/20 08:14 154/104 05/28/20 08:00 98.2 108 20 154/104 (121) 98 Intake and Output 05/28/20 05/29/20 19:00 07:00 Intake Total 600 ml Output Total 700 ml Balance 600 ml -700 ml Intake Oral 600 ml Output Urine Total 700 ml # Voids 2 4 # Bowel Movements 1 1 Height (Feet): 5 Height (Inches): 6.00 Weight (Pounds): 130 General Appearance: no apparent distress EENT: normal ENT inspection Neck: supple Cardiovascular: normal rate Respiratory/Chest: decreased breath sounds Abdomen: normal bowel sounds, non tender, soft Extremities: non-tender Assessment/Plan Status: progressing - progressing spoke with . patient not on antipsychotics prior to hosp. therefore nokt n.m.s. metabolic encephalopathy Assessment/Plan: Assessment/Plan Status: progressing - progressing spoke with . patient not on antipsychotics prior to hosp. therefore nokt n.m.s. 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
--- NOTE | 2020-05-29 07:23 | NUR ---
NURSE HAND-OFF: Important Events on Shift: stable at this time Patient Status: full code Diet: reg mechanical soft 1:1 feeder Pending Orders: Pending Results/Labs: Pending MD notification: Latest Vital Signs: Temperature 98.6 , Pulse 100 , B/P 139 /74 , Respiratory Rate 20 , O2 SAT 97 , Room Air, O2 Flow Rate . Vital Sign Comment: Latest Funez Fall Score: 50 Fall Risk: High Risk Safety Measures: Call light Within Reach, Bed Alarm Zone 1, Side Rails Side Rails x2, Bed position Low and Locked. Fall Precautions: Yellow Socks Yellow Gown Door Sign Patient Fall Education Report given to Carson Coffman RN
--- NOTE | 2020-05-29 07:44 | NUR ---
NURSE NOTES: Patient alert x3, forget-full; on room air, no sing of distress and shortness of breath; no sing of chest pain; IV Left For-Arm flushes well; side rails up x2, padded of seizure percussion, bed at lowest position, breaks engaged, bed at lowest position, bed alarm on; call light within reach; will keep monitoring.
[2020-05-29 08:00] VITALS: BP 148/100
--- NOTE | 2020-05-29 09:27 | General Progress Note ---
Subjective Allergies: Coded Allergies: No Known Allergies (Unverified , 05/17/20) Subjective CT reviewed psych noted wbc still high, onc reviewed Objective Last 24 Hour Vital Signs Date Time Temp Pulse Resp B/P (MAP) Pulse Ox O2 Delivery O2 Flow Rate FiO2 05/29/20 08:00 97.7 103 17 148/100 (116) 97 05/29/20 04:00 98.6 100 20 139/74 (95) 97 05/28/20 22:22 Room Air 05/28/20 20:00 98.9 84 18 138/84 (102) 97 05/28/20 16:00 99.0 95 20 125/89 (101) 98 05/28/20 13:12 153/105 05/28/20 12:00 96.9 100 20 153/105 (121) 100 Intake and Output 05/28/20 05/29/20 19:00 07:00 Intake Total 600 ml Output Total 700 ml Balance 600 ml -700 ml Intake Oral 600 ml Output Urine Total 700 ml # Voids 2 4 # Bowel Movements 1 1 Height (Feet): 5 Height (Inches): 6.00 Weight (Pounds): 130 Objective WDWN NAD clear breath sounds bilaterally without rhonchi or wheeze [id number] without MRG NABS nontender no HSM no CCE confused reduced ROM Assessment/Plan Status: progressing - progressing spoke with . patient not on antipsychotics prior to hosp. therefore nokt n.m.s. 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 colonscopy /called again impression, plan, and exam edited and reviewed in detail care discussed with Maikel Walters MD May 29, 2020 09:27
--- NOTE | 2020-05-29 11:30 | Infectious Diseases Prog Note ---
Assessment/Plan Assessment/Plan antibiotics : none A 1. gram positive UTI s/p rx 2. pneumonia s/p rx 3. seizures 4. leucocytosis improving 5. schizophrenia 6. abdominal malignancy P 1. observe off antibiotics 2. will follow up cultures Subjective ROS Limited/Unobtainable: Yes Allergies: Coded Allergies: No Known Allergies (Unverified , 05/17/20) Objective Last 24 Hour Vital Signs Date Time Temp Pulse Resp B/P (MAP) Pulse Ox O2 Delivery O2 Flow Rate FiO2 05/29/20 09:00 Room Air 05/29/20 08:00 97.7 103 17 148/100 (116) 97 05/29/20 04:00 98.6 100 20 139/74 (95) 97 05/28/20 22:22 Room Air 05/28/20 20:00 98.9 84 18 138/84 (102) 97 05/28/20 16:00 99.0 95 20 125/89 (101) 98 05/28/20 13:12 153/105 05/28/20 12:00 96.9 100 20 153/105 (121) 100 Height (Feet): 5 Height (Inches): 6.00 Weight (Pounds): 130 Respiratory/Chest: lungs clear Cardiovascular: normal rate, regular rhythm, no gallop/murmur Abdomen: soft, non tender Extremities: no edema Current Medications Medications (Trade) Dose Ordered Sig/Laura Route PRN Reason Start Time Stop Time Status Last Admin Dose Admin Acetaminophen (Tylenol) 650 mg Q4H PRN ORAL Mild Pain (Pain Scale 1-3) 05/17/20 18:45 06/16/20 18:44 05/20/20 21:29 Al Hydroxide/Mg Hydroxide (Mylanta) 30 ml Q6H PRN ORAL heartburn 05/17/20 18:45 06/16/20 18:44 Clonidine HCl (Catapres Tab) 0.1 mg Q4H PRN ORAL For High Blood Pressure 05/18/20 19:00 08/16/20 18:59 05/28/20 13:12 Iron Sucrose 100 mg/Sodium Chloride 60 ml @ 240 mls/hr BEDTIME IVPB 05/27/20 21:00 05/31/20 21:14 05/28/20 21:00 Levetiracetam (Keppra) 500 mg Q12HR ORAL 05/17/20 21:00 07/01/20 20:59 05/29/20 08:49 Pantoprazole (Protonix) 40 mg DAILY ORAL 05/18/20 09:00 06/17/20 08:59 05/29/20 08:49 Risperidone (RisperDAL) 1 mg BEDTIME ORAL 05/20/20 21:00 07/04/20 20:59 05/28/20 21:00 Melvin Rabago MD May 29, 2020 11:30
[2020-05-29 12:00] VITALS: BP 143/90
--- NOTE | 2020-05-29 15:20 | NUR ---
CASE MANAGEMENT:REVIEW SI;GRAM POSITIVE UTI. ABD MALIGNANCY. SCHIZOPHRENIA. PNEUMONIA. SEIZURE. 98.6 103 20 143/100 97% ON RA IS;IRON SUCROSE IV QD PROTONIX PO QD KEPPRA PO Q12 MED SURG STATUS DCP;FROM BOARD AND CARE
[2020-05-29 16:00] VITALS: BP 138/96
--- NOTE | 2020-05-29 19:27 | NUR ---
HAND-OFF: Report given to DIANE Eng.
--- NOTE | 2020-05-29 19:36 | NUR ---
NURSE NOTES: Patient in bed, awake, alert and verbally responsive. able to make needs known. Respiration is even and unlabored. No complaint of pain or discomfort. Skin is warm and dry to touch. Abdomen is soft and non distended. Kept clean and comfortable. Bed in low and locked position.Iv site noted. Call light is at bedside. Will continue plan of care.
[2020-05-29 20:00] VITALS: BP 123/65
[2020-05-29] MEDS: Iron Sucrose 100 MG in NS 55 ML IVPB SCH (21:45)
--- NOTE | 2020-05-29 23:09 | Consultation ---
History of Present Illness General Date patient seen: May 29, 2020 Reason for Hospitalization: Seizure Present Illness HPI 44F with large pelvic mass. seen by improvement engineer and onc. surgery called to evaluate. tolerating diet. +BM. states is okay. hx seizures. rectal component of mass. no bleeding Allergies: Coded Allergies: No Known Allergies (Unverified , 05/17/20) COVID-19 Screening Contact w/high risk pt: No Experienced COVID-19 symptoms?: No Medication History Scheduled Cephalexin* (Keflex*), 500 MG ORAL EVERY 12 HOURS Levetiracetam (Keppra), 500 MG ORAL EVERY 12 HOURS Patient History History Provided By: Patient, Medical Record, PMD Healthcare decision maker N Resuscitation status Advanced Directive on File Past Medical/Surgical History Past Medical/Surgical History: (1) UTI (urinary tract infection) (2) Altered mental status (3) Opiate use (4) Seizure-like activity (5) Anemia Review of Systems Review of Symptoms General ROS: no weight loss or fever Psychological ROS: no depression or mood changes, no memory loss Ophthalmic ROS: no visual changes or eye irritation ENT ROS: no nasal congestion, hearing loss, dizziness Allergy and Immunology ROS: no allergic symptoms or urticaria Hematological and Lymphatic ROS: no swollen glands, unusual bleeding or bruising Endocrine ROS: no polyuria, polydipsia, weight changes, temperature intolerance Respiratory ROS: no cough, shortness of breath, or wheezing Cardiovascular ROS: no chest pain or dyspnea on exertion Gastrointestinal ROS: denies abdominal pain, bright red blood in stool. Musculoskeletal ROS: no myalgias or arthralgias Neurological ROS: no TIA or stroke symptoms Dermatological ROS: no new or changing skin lesions, rashes or pruritis Physical Exam Physical Exam General appearance: alert, cooperative, no distress, appears stated age Head: Normocephalic, without obvious abnormality, atraumatic Eyes: conjunctivae/corneas clear. PERRL, EOM's intact. Fundi benign Throat: Lips, mucosa, and tongue normal. Teeth and gums normal Neck: supple, symmetrical, trachea midline, no adenopathy, thyroid: not enlarged, symmetric, no tenderness/mass/nodules, no carotid bruit and no JVD Lungs: clear to auscultation bilaterally Heart: regular rate and rhythm, S1, S2 normal, no murmur, click, rub or gallop Abdomen: soft, non-tender. Bowel sounds normal. No masses, no organomegaly Extremities: extremities normal, atraumatic, no cyanosis or edema Pulses: 2+ and symmetric Skin: Skin color, texture, turgor normal. No rashes or lesions Neurologic: Grossly normal Last 24 Hour Vital Signs Date Time Temp Pulse Resp B/P (MAP) Pulse Ox O2 Delivery O2 Flow Rate FiO2 05/29/20 20:11 Room Air 05/29/20 20:00 97.7 98 18 123/65 (84) 97 05/29/20 16:00 96.8 92 18 138/96 (110) 95 05/29/20 12:00 97.5 90 17 143/90 (107) 97 05/29/20 09:00 Room Air 05/29/20 08:00 97.7 103 17 148/100 (116) 97 05/29/20 04:00 98.6 100 20 139/74 (95) 97 Intake and Output 05/28/20 05/29/20 18:59 06:59 Intake Total 600 ml Output Total 700 ml Balance 600 ml -700 ml Intake Oral 600 ml Output Urine Total 700 ml # Voids 2 4 # Bowel Movements 1 1 Height (Feet): 5 Height (Inches): 6.00 Weight (Pounds): 130 Medications Current Medications Medications (Trade) Dose Ordered Sig/Laura Route PRN Reason Start Time Stop Time Status Last Admin Dose Admin Acetaminophen (Tylenol) 650 mg Q4H PRN ORAL Mild Pain (Pain Scale 1-3) 05/17/20 18:45 06/16/20 18:44 05/20/20 21:29 Al Hydroxide/Mg Hydroxide (Mylanta) 30 ml Q6H PRN ORAL heartburn 05/17/20 18:45 06/16/20 18:44 Clonidine HCl (Catapres Tab) 0.1 mg Q4H PRN ORAL For High Blood Pressure 05/18/20 19:00 08/16/20 18:59 05/28/20 13:12 Iron Sucrose 100 mg/Sodium Chloride 60 ml @ 240 mls/hr BEDTIME IVPB 05/27/20 21:00 05/31/20 21:14 05/29/20 21:45 Levetiracetam (Keppra) 500 mg Q12HR ORAL 05/17/20 21:00 07/01/20 20:59 05/29/20 21:43 Pantoprazole (Protonix) 40 mg DAILY ORAL 05/18/20 09:00 06/17/20 08:59 05/29/20 08:49 Risperidone (RisperDAL) 1 mg BEDTIME ORAL 05/20/20 21:00 07/04/20 20:59 05/29/20 21:43 Assessment/Plan Problem List: (1) Rectal mass Assessment & Plan: 44F rectal mass. tolerating diet not obstructed fashion coordinator input noted onc input noted tumor markers unfortunately not resectable given CT findings. neoadjuvant tx Chest: Atelectatic changes are seen at both lung bases. There may also be some hazy consolidation of portions of both lower lobes. No effusion. No dense consolidation. The upper lobes are clear as is the right middle lobe. The heart size is normal. No pericardial effusion. No mediastinal or hilar mass or adenopathy. The left thyroid lobe is enlarged, with a dominant nodule that measures at least 3.7 cm in diameter. There is also calcified nodule in the left thyroid lobe lower pole. No axillary or chest wall mass or adenopathy. The esophagus is unremarkable. Abdomen pelvis: There is a large midline pelvic cystic mass which measures 21.4 cm transverse by 10 cm AP by 16.2 cm craniocaudad. This appears to be largely unilocular, but the coronal images suggest 2 small locules on the inferior border of either side. It is thin-walled This is in the midline anterior to the uterus and above the dome of the bladder. No pelvic adenopathy is demonstrated. There is some infiltration of the presacral fat. There is a very large mass which appears to be centered in the lumen of the ascending colon. This demonstrates heterogeneous and enhancement with some areas of low-attenuation. This measures 11.8 cm AP by 9 cm transverse by 10.6 cm craniocaudad. There is evidence of infiltration of the serosal fat. There is some thickening of the wall of these hepatic flexure and proximal transverse colon distal to this. The cecum and ascending colon proximal to this are slightly distended, fluid-filled. There is no small bowel distention, although ingested contrast has not traversed the entirety of the small bowel. There are a few prominent regional mesenteric lymph nodes. There is infiltration of the presacral fat. No evidence of diverticulosis or diverticulitis. No small bowel wall thickening. No free or loculated intraperitoneal gas or fluid is evident. No definite solid liver lesion Subcentimeter low-attenuation lesion is seen at the junction of segments 4A and 4B within the liver. Another is seen in segment 2. The gallbladder contains gallstones. There is no biliary ductal dilatation. The pancreas, spleen, adrenals, kidneys are all unremarkable. No retroperitoneal mass or adenopathy. There is diffuse mild edema of the subcutaneous fat. The bones are unremarkable. IMPRESSION: 11.8 x 9 x 10.6 cm heterogeneous mass centered in the lumen of the ascending colon, highly suspicious for primary colon malignancy. There is suggestion of serosal invasion and there are a few prominent nonspecific regional nodes present. There is very mild distention of the colon proximal to this 21.4 10 x 16.2 cm anterior midline cystic pelvic mass. Although largely thin- walled and demonstrating only 2 small locules, the size is worrisome for gynecological malignancy. The technologist notes describes history of ovarian carcinoma. Correlate with of clinical history Nonspecific infiltration of the presacral fat 3.7 cm left lobe thyroid nodule. Consider further evaluation with sonography Basilar pulmonary parenchymal atelectasis and possibly some lower lobe hazy consolidation Subcentimeter low-attenuation liver lesions, too small to characterize Cholelithiasis ICD Codes: K62.89 - Other specified diseases of anus and rectum SNOMED: 736532642 (2) UTI (urinary tract infection) ICD Codes: N39.0 - Urinary tract infection, site not specified SNOMED: 34402662 (3) Altered mental status ICD Codes: R41.82 - Altered mental status, unspecified SNOMED: 553634387 (4) Opiate use ICD Codes: F11.90 - Opioid use, unspecified, uncomplicated SNOMED: 737577404 (5) Seizure-like activity ICD Codes: R56.9 - Unspecified convulsions SNOMED: 252398675 (6) Anemia ICD Codes: D64.9 - Anemia, unspecified SNOMED: 605021775 Sandor Fuentes May 29, 2020 23:09
[2020-05-29 23:53] VITALS: BP 153/90
[2020-05-30] VITALS (7 sets, daily range): BP systolic 131–176; BP diastolic 81–105
--- NOTE | 2020-05-30 06:54 | Hematology/Onc Progress Note ---
Assessment/Plan Assessment/Plan LABS: reviewed Imaging CT A/P 11.8 x 9 x 10.6 cm heterogeneous mass centered in the lumen of the ascending colon, highly suspicious for primary colon malignancy. There is suggestion of serosal invasion and there are a few prominent nonspecific regional nodes present. There is very mild distention of the colon proximal to this 21.4 10 x 16.2 cm anterior midline cystic pelvic mass. Although largely thin- walled and demonstrating only 2 small locules, the size is worrisome for gynecological malignancy. The technologist notes describes history of ovarian carcinoma. Corre late with of clinical history Assessment and Recs # Heterogenous mass in ascending colon concerning for colon cancer, also with pelvic mass, that is with 2 small locules concerning for cone sewer source --> tumor markers ordered, have been reviewed, only cea 5.9 --> rec as per gi eval --> cone sewer eval reviewed, will need cone sewer onc eval --> if clinically stable, need biopsy with gi or with surg team # Anemia of iron deficiency, very low ferritin --> iv iron has been started --> hgb 8.4 --> anemia panel noted --> transfuse prn # Leukocytosis likely due to malignancy --> wbc 16-->15 --> ABX prn # Thrombocytosis elev plt --> likely neoplasm related # Toxic met encephalopathy # Possible pneumonia # Possible uti # EEG with diffuse slowing # Dvt ppx scds Appreciate consultation and carmelo WHITMAN Subjective HEENT: Denies: no symptoms, eye pain, blurred vision, tearing, double vision, ear pain, ear discharge, nose pain, nose congestion, throat pain, throat swelling, mouth pain, mouth swelling, other Cardiovascular: Denies: no symptoms, chest pain, edema, irregular heart rate, lightheadedness, palpitations, syncope, other Respiratory: Denies: no symptoms, cough, shortness of breath, SOB with excertion, SOB at rest, sputum, wheezing, other Gastrointestinal/Abdominal: Denies: no symptoms, abdomen distended, abdominal pain, black stools, tarry stools, blood in stool, constipated, diarrhea, difficulty swallowing, nausea, poor appetite, poor fluid intake, rectal bleeding, vomiting, other Genitourinary: Denies: no symptoms, burning, discharge, frequency, flank pain, hematuria, incontinence, pain, urgency, other Neurologic/Psychiatric: Denies: no symptoms, anxiety, depressed, emotional problems, headache, numbness, paresthesia, pre-existing deficit, seizure, t ingling, tremors, weakness, other Endocrine: Denies: no symptoms, excessive sweating, flushing, intolerance to cold, intolerance to heat, increased hunger, increased thirst, increased urine, unexplained weight gain, unexplained weight loss, other Hematologic/Lymphatic: Denies: no symptoms, anemia, easy bleeding, easy bruising, adenopathy, other Allergies: Coded Allergies: No Known Allergies (Unverified , 05/17/20) Subjective 05/28 labs have been reviewed, meds noted, no bleeding, hgb 8.4, plt 703 05/30 labs reviewed recently, have ordered for repeat labs this am Objective Objective Current Medications Medications (Trade) Dose Ordered Sig/Laura Route PRN Reason Start Time Stop Time Status Last Admin Dose Admin Acetaminophen (Tylenol) 650 mg Q4H PRN ORAL Mild Pain (Pain Scale 1-3) 05/17/20 18:45 06/16/20 18:44 05/20/20 21:29 Al Hydroxide/Mg Hydroxide (Mylanta) 30 ml Q6H PRN ORAL heartburn 05/17/20 18:45 06/16/20 18:44 Clonidine HCl (Catapres Tab) 0.1 mg Q4H PRN ORAL For High Blood Pressure 05/18/20 19:00 08/16/20 18:59 05/30/20 04:01 Iron Sucrose 100 mg/Sodium Chloride 60 ml @ 240 mls/hr BEDTIME IVPB 05/27/20 21:00 05/31/20 21:14 05/29/20 21:45 Levetiracetam (Keppra) 500 mg Q12HR ORAL 05/17/20 21:00 07/01/20 20:59 05/29/20 21:43 Pantoprazole (Protonix) 40 mg DAILY ORAL 05/18/20 09:00 06/17/20 08:59 05/29/20 08:49 Risperidone (RisperDAL) 1 mg BEDTIME ORAL 05/20/20 21:00 07/04/20 20:59 05/29/20 21:43 Last 24 Hour Vital Signs Date Time Temp Pulse Resp B/P (MAP) Pulse Ox O2 Delivery O2 Flow Rate FiO2 05/30/20 05:00 158/96 (116) 05/30/20 04:01 164/102 05/30/20 03:58 97.9 93 18 164/102 (122) 95 05/29/20 23:53 97.8 91 18 153/90 (111) 96 05/29/20 20:11 Room Air 05/29/20 20:00 97.7 98 18 123/65 (84) 97 05/29/20 16:00 96.8 92 18 138/96 (110) 95 05/29/20 12:00 97.5 90 17 143/90 (107) 97 05/29/20 09:00 Room Air 05/29/20 08:00 97.7 103 17 148/100 (116) 97 05/29/20 04:00 98.6 100 20 139/74 (95) 97 05/28/20 22:22 Room Air 05/28/20 20:00 98.9 84 18 138/84 (102) 97 05/28/20 16:00 99.0 95 20 125/89 (101) 98 05/28/20 13:12 153/105 05/28/20 12:00 96.9 100 20 153/105 (121) 100 05/28/20 09:00 Room Air 05/28/20 08:14 154/104 05/28/20 08:00 98.2 108 20 154/104 (121) 98 Intake and Output 05/29/20 05/30/20 19:00 07:00 Intake Total 600 ml 460 ml Output Total 400 ml 1200 ml Balance 200 ml -740 ml Intake Oral 600 ml 400 ml IV Total 60 ml Output Urine Total 400 ml 1200 ml # Voids 1 # Bowel Movements 1 Labs Test 05/27/20 07:40 05/28/20 05:46 White Blood Count 16.7 K/UL (4.8-10.8) 15.2 K/UL (4.8-10.8) Red Blood Count 3.87 M/UL (4.20-5.40) 3.79 M/UL (4.20-5.40) Hemoglobin 8.5 G/DL (12.0-16.0) 8.4 G/DL (12.0-16.0) Hematocrit 27.0 % (37.0-47.0) 27.0 % (37.0-47.0) Mean Corpuscular Volume 70 FL (80-99) 71 FL (80-99) Mean Corpuscular Hemoglobin 22.0 PG (27.0-31.0) 22.1 PG (27.0-31.0) Mean Corpuscular Hemoglobin Concent 31.5 G/DL (32.0-36.0) 31.0 G/DL (32.0-36.0) Red Cell Distribution Width 20.2 % (11.6-14.8) 19.4 % (11.6-14.8) Platelet Count 723 K/UL (150-450) 703 K/UL (150-450) Mean Platelet Volume 5.0 FL (6.5-10.1) 5.5 FL (6.5-10.1) Neutrophils (%) (Auto) % (45.0-75.0) 84.2 % (45.0-75.0) Lymphocytes (%) (Auto) % (20.0-45.0) 9.0 % (20.0-45.0) Monocytes (%) (Auto) % (1.0-10.0) 5.3 % (1.0-10.0) Eosinophils (%) (Auto) % (0.0-3.0) 0.9 % (0.0-3.0) Basophils (%) (Auto) % (0.0-2.0) 0.7 % (0.0-2.0) Differential Total Cells Counted 100 Neutrophils % (Manual) 83 % (45-75) Lymphocytes % (Manual) 13 % (20-45) Monocytes % (Manual) 3 % (1-10) Eosinophils % (Manual) 1 % (0-3) Basophils % (Manual) 0 % (0-2) Band Neutrophils 0 % (0-8) Platelet Estimate Increased Platelet Morphology Normal Hypochromasia 1+ Anisocytosis 2+ Microcytosis 2+ Ovalocytes Occasional Sodium Level 137 MMOL/L (136-145) 138 MMOL/L (136-145) Potassium Level 3.8 MMOL/L (3.5-5.1) 3.8 MMOL/L (3.5-5.1) Chloride Level 103 MMOL/L (98-107) 103 MMOL/L (98-107) Carbon Dioxide Level 26 MMOL/L (21-32) 30 MMOL/L (21-32) Anion Gap 8 mmol/L (5-15) 5 mmol/L (5-15) Blood Urea Nitrogen 9 mg/dL (7-18) 11 mg/dL (7-18) Creatinine 0.7 MG/DL (0.55-1.30) 0.6 MG/DL (0.55-1.30) Estimat Glomerular Filtration Rate > 60 mL/min (>60) > 60 mL/min (>60) Glucose Level 110 MG/DL (74-106) 106 MG/DL (74-106) Calcium Level 8.9 MG/DL (8.5-10.1) 8.5 MG/DL (8.5-10.1) Alpha Fetoprotein <0.9 ng/mL (0.0-8.3) Carcinoembryonic Antigen 6.4 ng/mL (0.0-4.7) CA 15-3 Antigen 9.2 U/mL (0.0-25.0) CA 19-9 Antigen <2 U/mL (0-35) CA 125 Antigen 31.9 U/mL (0.0-38.1) Height (Feet): 5 Height (Inches): 6.00 Weight (Pounds): 130 Objective EXAM: GEN: NAD, resting comfortably in bed, somewhat confused HEENT: OP clear, MMM CV: No tachycardia Pulm: Respirations even and unlabored Abd: Soft, +fullness throughout mid to upper abdomen, non-tender, +distention Pelvic: Internal exam deferred. External urine catheter in place Ext: SCDs in place, no calf TTP Calvin Velasquez MD May 30, 2020 06:54
--- NOTE | 2020-05-30 07:39 | NUR ---
NURSE HAND-OFF: Important Events on Shift:WNL Patient Status: Diet: Reg Mech Soft Pending Orders: Pending Results/Labs: Pending MD notification: Latest Vital Signs: Temperature 97.9 , Pulse 93 , B/P 158 /96 , Respiratory Rate 18 , O2 SAT 95 , Room Air, O2 Flow Rate . Vital Sign Comment: Hypertensive, given PRN Latest Funez Fall Score: 50 Fall Risk: High Risk Safety Measures: Call light Within Reach, Bed Alarm Zone 1, Side Rails Side Rails x2, Bed position Low and Locked. Fall Precautions: Yellow Socks Yellow Gown Door Sign Patient Fall Education Report given to DIANE Olivia.
--- NOTE | 2020-05-30 07:45 | NUR ---
NURSE NOTES: Pt lying in bed w/bed in lowest position and call light within reach. Pt A&Ox2, VSS, and in no apparent distress. IV site intact/asymptomatic & H/L'd and skin intact. Pt has no complaints or concerns at this time. Will continue to monitor.
--- NOTE | 2020-05-30 08:50 | General Progress Note ---
Subjective Allergies: Coded Allergies: No Known Allergies (Unverified , 05/17/20) Objective Last 24 Hour Vital Signs Date Time Temp Pulse Resp B/P (MAP) Pulse Ox O2 Delivery O2 Flow Rate FiO2 05/30/20 08:00 98.0 99 16 176/101 (126) 96 05/30/20 05:00 158/96 (116) 05/30/20 04:01 164/102 05/30/20 03:58 97.9 93 18 164/102 (122) 95 05/29/20 23:53 97.8 91 18 153/90 (111) 96 05/29/20 20:11 Room Air 05/29/20 20:00 97.7 98 18 123/65 (84) 97 05/29/20 16:00 96.8 92 18 138/96 (110) 95 05/29/20 12:00 97.5 90 17 143/90 (107) 97 05/29/20 09:00 Room Air Intake and Output 05/29/20 05/30/20 19:00 07:00 Intake Total 600 ml 460 ml Output Total 400 ml 1200 ml Balance 200 ml -740 ml Intake Oral 600 ml 400 ml IV Total 60 ml Output Urine Total 400 ml 1200 ml # Voids 1 # Bowel Movements 1 Height (Feet): 5 Height (Inches): 6.00 Weight (Pounds): 130 General Appearance: no apparent distress EENT: normal ENT inspection Neck: supple Cardiovascular: normal rate Respiratory/Chest: decreased breath sounds Abdomen: normal bowel sounds, non tender, soft Extremities: non-tender Assessment/Plan Status: progressing - progressing spoke with . patient not on antipsychotics prior to hosp. therefore nokt n.m.s. metabolic encephalopathy Assessment/Plan: Assessment/Plan Status: progressing - progressing spoke with . patient not on antipsychotics prior to hosp. therefore nokt n.m.s. 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
--- NOTE | 2020-05-30 11:53 | General Progress Note ---
Subjective Allergies: Coded Allergies: No Known Allergies (Unverified , 05/17/20) Subjective CT reviewed psych noted wbc still high, onc reviewed Objective Last 24 Hour Vital Signs Date Time Temp Pulse Resp B/P (MAP) Pulse Ox O2 Delivery O2 Flow Rate FiO2 05/30/20 09:00 98 147/105 (119) 05/30/20 08:00 98.0 99 16 176/101 (126) 96 05/30/20 05:00 158/96 (116) 05/30/20 04:01 164/102 05/30/20 03:58 97.9 93 18 164/102 (122) 95 05/29/20 23:53 97.8 91 18 153/90 (111) 96 05/29/20 20:11 Room Air 05/29/20 20:00 97.7 98 18 123/65 (84) 97 05/29/20 16:00 96.8 92 18 138/96 (110) 95 05/29/20 12:00 97.5 90 17 143/90 (107) 97 Intake and Output 05/29/20 05/30/20 19:00 07:00 Intake Total 600 ml 460 ml Output Total 400 ml 1200 ml Balance 200 ml -740 ml Intake Oral 600 ml 400 ml IV Total 60 ml Output Urine Total 400 ml 1200 ml # Voids 1 # Bowel Movements 1 Height (Feet): 5 Height (Inches): 6.00 Weight (Pounds): 130 Objective WDWN NAD clear breath sounds bilaterally without rhonchi or wheeze [id number] without MRG NABS nontender no HSM no CCE confused reduced ROM Assessment/Plan Status: progressing - progressing spoke with . patient not on antipsychotics prior to hosp. therefore nokt n.m.s. 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 colonscopy /called again impression, plan, and exam edited and reviewed in detail care discussed with Maikel Walters MD May 30, 2020 11:53
--- NOTE | 2020-05-30 16:02 | Infectious Diseases Prog Note ---
Assessment/Plan Assessment/Plan A 1. UTI treated 2. pneumonia treated 3. seizures 4. leucocytosis improving 5. schizophrenia 6. Toxic encephalopathy P 1. Observe off antibiotic Subjective ROS Limited/Unobtainable: Yes Constitutional: Reports: no symptoms Respiratory: Reports: no symptoms Gastrointestinal/Abdominal: Reports: no symptoms Genitourinary: Reports: no symptoms Allergies: Coded Allergies: No Known Allergies (Unverified , 05/17/20) Objective Last 24 Hour Vital Signs Date Time Temp Pulse Resp B/P (MAP) Pulse Ox O2 Delivery O2 Flow Rate FiO2 05/30/20 12:00 98.2 90 16 146/97 (113) 96 05/30/20 09:00 98 147/105 (119) 05/30/20 09:00 Room Air 05/30/20 08:00 98.0 99 16 176/101 (126) 96 05/30/20 08:00 98.0 99 16 176/101 (126) 96 05/30/20 05:00 158/96 (116) 05/30/20 04:01 164/102 05/30/20 03:58 97.9 93 18 164/102 (122) 95 05/29/20 23:53 97.8 91 18 153/90 (111) 96 05/29/20 20:11 Room Air 05/29/20 20:00 97.7 98 18 123/65 (84) 97 Height (Feet): 5 Height (Inches): 6.00 Weight (Pounds): 130 General Appearance: no acute distress HEENT: mucous membranes moist Respiratory/Chest: lungs clear Cardiovascular: normal rate Abdomen: soft, non tender Neurologic/Psychiatric: alert, responsive, other - slow to response Current Medications Medications (Trade) Dose Ordered Sig/Laura Route PRN Reason Start Time Stop Time Status Last Admin Dose Admin Acetaminophen (Tylenol) 650 mg Q4H PRN ORAL Mild Pain (Pain Scale 1-3) 05/17/20 18:45 06/16/20 18:44 05/20/20 21:29 Al Hydroxide/Mg Hydroxide (Mylanta) 30 ml Q6H PRN ORAL heartburn 05/17/20 18:45 06/16/20 18:44 Clonidine HCl (Catapres Tab) 0.1 mg Q4H PRN ORAL For High Blood Pressure 05/18/20 19:00 08/16/20 18:59 12/6/20 04:01 Iron Sucrose 100 mg/Sodium Chloride 60 ml @ 240 mls/hr BEDTIME IVPB 05/27/20 21:00 05/31/20 21:14 05/29/20 21:45 Levetiracetam (Keppra) 500 mg Q12HR ORAL 05/17/20 21:00 07/01/20 20:59 05/30/20 08:05 Pantoprazole (Protonix) 40 mg DAILY ORAL 05/18/20 09:00 06/17/20 08:59 05/30/20 08:04 Risperidone (RisperDAL) 1 mg BEDTIME ORAL 05/20/20 21:00 07/04/20 20:59 05/29/20 21:43 Cuauhtemoc Colindres MD May 30, 2020 16:02
--- NOTE | 2020-05-30 16:16 | Surgery Progress Note ---
Surgery Progress Note Subjective Additional Comments no acute events sitting up no n/v comfortable no complaints tolerating diet +flatus Objective Last 24 Hour Vital Signs Date Time Temp Pulse Resp B/P (MAP) Pulse Ox O2 Delivery O2 Flow Rate FiO2 05/30/20 12:00 98.2 90 16 146/97 (113) 96 05/30/20 09:00 98 147/105 (119) 05/30/20 09:00 Room Air 05/30/20 08:00 98.0 99 16 176/101 (126) 96 05/30/20 08:00 98.0 99 16 176/101 (126) 96 05/30/20 05:00 158/96 (116) 05/30/20 04:01 164/102 05/30/20 03:58 97.9 93 18 164/102 (122) 95 05/29/20 23:53 97.8 91 18 153/90 (111) 96 05/29/20 20:11 Room Air 05/29/20 20:00 97.7 98 18 123/65 (84) 97 I&O Intake and Output 05/29/20 05/30/20 19:00 07:00 Intake Total 600 ml 460 ml Output Total 400 ml 1200 ml Balance 200 ml -740 ml Intake Oral 600 ml 400 ml IV Total 60 ml Output Urine Total 400 ml 1200 ml # Voids 1 # Bowel Movements 1 Cardiovascular: RSR Respiratory: decreased breath sounds Abdomen: non-tender, present bowel sounds Extremities: no tenderness, no cyanosis Plan Problems: (1) Rectal mass Assessment & Plan: 44F rectal mass. tolerating diet not obstructed flower planter input noted onc input noted tumor markers unfortunately not resectable given CT findings. neoadjuvant tx Chest: Atelectatic changes are seen at both lung bases. There may also be some hazy consolidation of portions of both lower lobes. No effusion. No dense consolidation. The upper lobes are clear as is the right middle lobe. The heart size is normal. No pericardial effusion. No mediastinal or hilar mass or adenopathy. The left thyroid lobe is enlarged, with a dominant nodule that measures at least 3.7 cm in diameter. There is also calcified nodule in the left thyroid lobe lower pole. No axillary or chest wall mass or adenopathy. The esophagus is unremarkable. Abdomen pelvis: There is a large midline pelvic cystic mass which measures 21.4 cm transverse by 10 cm AP by 16.2 cm craniocaudad. This appears to be largely unilocular, but the coronal images suggest 2 small locules on the inferior border of either side. It is thin-walled This is in the midline anterior to the uterus and above the dome of the bladder. No pelvic adenopathy is demonstrated. There is some infiltration of the presacral fat. There is a very large mass which appears to be centered in the lumen of the ascending colon. This demonstrates heterogeneous and enhancement with some areas of low-attenuation. This measures 11.8 cm AP by 9 cm transverse by 10.6 cm craniocaudad. There is evidence of infiltration of the serosal fat. There is some thickening of the wall of these hepatic flexure and proximal transverse colon distal to this. The cecum and ascending colon proximal to this are slightly distended, fluid-filled. There is no small bowel distention, although ingested contrast has not traversed the entirety of the small bowel. There are a few prominent regional mesenteric lymph nodes. There is infiltration of the presacral fat. No evidence of diverticulosis or diverticulitis. No small bowel wall thickening. No free or loculated intraperitoneal gas or fluid is evident. No definite solid liver lesion Subcentimeter low-attenuation lesion is seen at the junction of segments 4A and 4B within the liver. Another is seen in segment 2. The gallbladder contains gallstones. There is no biliary ductal dilatation. The pancreas, spleen, adrenals, kidneys are all unremarkable. No retroperitoneal mass or adenopathy. There is diffuse mild edema of the subcutaneous fat. The bones are unremarkable. IMPRESSION: 11.8 x 9 x 10.6 cm heterogeneous mass centered in the lumen of the ascending colon, highly suspicious for primary colon malignancy. There is suggestion of serosal invasion and there are a few prominent nonspecific regional nodes present. There is very mild distention of the colon proximal to this 21.4 10 x 16.2 cm anterior midline cystic pelvic mass. Although largely thin- walled and demonstrating only 2 small locules, the size is worrisome for gynecological malignancy. The technologist notes describes history of ovarian carcinoma. Correlate with of clinical history Nonspecific infiltration of the presacral fat 3.7 cm left lobe thyroid nodule. Consider further evaluation with sonography Basilar pulmonary parenchymal atelectasis and possibly some lower lobe hazy consolidation Subcentimeter low-attenuation liver lesions, too small to characterize Cholelithiasis (2) UTI (urinary tract infection) (3) Altered mental status (4) Opiate use (5) Seizure-like activity (6) Anemia Sandor Fuentes May 30, 2020 16:16
--- NOTE | 2020-05-30 19:25 | NUR ---
NURSE HAND-OFF: Important Events on Shift: Pt sat up in chair w/PT this morning. Patient Status: Stable Diet: Regular (mech-soft ground) Pending Orders: KUB in AM Pending Results/Labs: None Pending MD notification: None Latest Vital Signs: Temperature 98.1 , Pulse 102 , B/P 142 /103 , Respiratory Rate 16 , O2 SAT 100 , Room Air, O2 Flow Rate . Vital Sign Comment: Stable Latest Funez Fall Score: 50 Fall Risk: High Risk Safety Measures: Call light Within Reach, Bed Alarm Zone 1, Side Rails Side Rails x2, Bed position Low and Locked. Fall Precautions: Yellow Socks Yellow Gown Door Sign Patient Fall Education Report given to DIANE Iraheta.
[2020-05-30] MEDS: Iron Sucrose 100 MG in NS 55 ML IVPB SCH (21:01)
[2020-05-31 03:52] VITALS: BP 138/86
--- NOTE | 2020-05-31 07:22 | NUR ---
HAND-OFF: Report given to Paxton Cunningham RN.
--- NOTE | 2020-05-31 07:38 | NUR ---
NURSE NOTES: Received report from DIANE Benson. Patient in bed, awake, alert and verbally responsive. able to make needs known. Respiration is even and unlabored. No complaint of pain or discomfort. Skin is warm and dry to touch. Abdomen is soft and non distended. Kept clean and comfortable. Bed in low and locked position.Iv site noted. Call light is at bedside. Will continue plan of care.
--- NOTE | 2020-05-31 07:45 | Consultation ---
DATE OF CONSULTATION: 05/28/2020 GASTROENTEROLOGY CONSULTATION CONSULTING PHYSICIAN: Adolfo Ruffin MD CHIEF COMPLAINT: I was asked to see this patient by Dr. Maikel Fajardo for evaluation of the colonic mass. HISTORY OF PRESENT ILLNESS: The patient is a 44-year-old white woman with past psychiatric history, who was brought in for seizures. Subsequent evaluation showed abnormal laboratory parameters, which prompted CT imaging showing a large cystic pelvic mass. This consultation was therefore generated regarding the colonic mass. The patient does have significant iron deficiency anemia. She reports that she had a recent colonoscopy at an outside hospital and records were finally received tonight from [facility] where the patient underwent endoscopy and a colonoscopy on April 21, 2020. The endoscopy was negative, but the colonoscopy showed a large colon mass consistent with malignancy. Biopsy showed a poorly differentiated adenocarcinoma. The CT imaging obtained at this hospital showed evidence of a large mass with radiographic evidence of a locally advanced disease as well as likely retroperitoneal lymph node enlargement. In addition, there is a large separate pelvic cystic mass, which may be gynecological in origin. The patient has evidence of a 2.7 cm thyroid nodule as well as cholelithiasis. The patient denies any major complaints and appears to be comfortable. She, however, is a very poor historian. PAST MEDICAL HISTORY: Remarkable for history of schizophrenia. FAMILY HISTORY: Unavailable and noncontributory. SOCIAL HISTORY: The patient resides at a board and care. ALLERGIES: None. REVIEW OF SYSTEMS: Unobtainable. MEDICATIONS: See the chart list for details. PHYSICAL EXAMINATION: GENERAL: Debilitated young woman, speaking very softly and showing responses. HEENT: Normocephalic and atraumatic. NECK: Supple. CHEST: Clear to auscultation. CARDIOVASCULAR: Revealed regular rate. ABDOMEN: Soft. EXTREMITIES: No edema. LABORATORY DATA: Noted. ASSESSMENT: This patient presented with advanced right-sided colon cancer, which is likely both locally advanced as well as metastatic and therefore with poor prognosis. There is mild colon dilation proximal to this mass and therefore early obstructive process is a possibility. She can be considered for a diverting colostomy to prevent a major obstructive process. Her prognosis, however, appears to be poor and Oncology is already following the patient with respect to possible oncological management. RECOMMENDATIONS: 1. P.o. intake as tolerated. 2. Follow laboratory parameters and exam closely. 3. Surgical consultation. 4. Agree to treat with iron to replace iron stores. Thank you for asking me to participate in the care of this patient. Adolfo Ruffin M.D. DR: SANTIAGO JOB#: [id number] CC: DARYL
[2020-05-31 08:00] VITALS: BP 139/88
--- NOTE | 2020-05-31 08:01 | General Progress Note ---
Subjective Allergies: Coded Allergies: No Known Allergies (Unverified , 05/17/20) Subjective overall same confused no distress Objective Last 24 Hour Vital Signs Date Time Temp Pulse Resp B/P (MAP) Pulse Ox O2 Delivery O2 Flow Rate FiO2 05/31/20 03:52 98.6 92 16 138/86 (103) 94 05/30/20 20:23 Room Air 05/30/20 19:56 98.1 93 18 131/81 (98) 95 05/30/20 16:00 98.1 102 16 142/103 (116) 100 05/30/20 12:00 98.2 90 16 146/97 (113) 96 05/30/20 09:00 98 147/105 (119) 05/30/20 09:00 Room Air Intake and Output 05/30/20 05/31/20 19:00 07:00 Intake Total 500 ml 260 ml Output Total 500 ml Balance 0 ml 260 ml Intake Oral 500 ml 200 ml IV Total 60 ml Output Urine Total 500 ml # Voids 3 # Bowel Movements 1 Height (Feet): 5 Height (Inches): 6.00 Weight (Pounds): 130 Objective WDWN NAD clear breath sounds bilaterally without rhonchi or wheeze [id number] without MRG NABS nontender no HSM no CCE confused reduced ROM Assessment/Plan Status: progressing - progressing spoke with . patient not on antipsychotics prior to hosp. therefore nokt n.m.s. 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
--- NOTE | 2020-05-31 08:44 | NUR ---
Social Work This Sw received a call from patients sister, who explains legal documents were sent via [employer] to this Hospital for patient to sign (regarding assess to their mothers property who recently ). Sister requesting this SW to deliver the mail and assist with mailing the signed documents back to the mail. Sister expressing concerns that patient may not be able to sign. Nursing also expressing this concern as well. This SW educated family regarding obtaining an Costumed Character Entertainer here to assist patient with any further assistance regarding this legal matter. This Sw delivered the mail to the patients room from the front end technician, per family request. Nursing and Channel Manager informed.
--- NOTE | 2020-05-31 09:44 | Surgery Progress Note ---
Surgery Progress Note Subjective Additional Comments spoke with patient and sister in detail today. given history. incarcerated shelter for 1 year. blood in stool noted while incarcerated. released and told to get colonoscopy. covid began and took a long time to get eval after. went to outside facility and noted large hepatic flexure cancer near obstructive. spoke with patient and sister. spoke with gi and pcp and oncology. tho she is not completely obstructed she is very close and scope noted prior near obstructing. potential for emergency obstructing as abd and ct demonstrated pr oximal area noted. considerations for diversion. but given large ovarian pathology as well potential malignant vs benign. will cont to discuss with patient and medical teams about care plan. Objective Last 24 Hour Vital Signs Date Time Temp Pulse Resp B/P (MAP) Pulse Ox O2 Delivery O2 Flow Rate FiO2 05/31/20 03:52 98.6 92 16 138/86 (103) 94 05/30/20 20:23 Room Air 05/30/20 19:56 98.1 93 18 131/81 (98) 95 05/30/20 16:00 98.1 102 16 142/103 (116) 100 05/30/20 12:00 98.2 90 16 146/97 (113) 96 I&O Intake and Output 05/30/20 05/31/20 19:00 07:00 Intake Total 500 ml 260 ml Output Total 500 ml Balance 0 ml 260 ml Intake Oral 500 ml 200 ml IV Total 60 ml Output Urine Total 500 ml # Voids 3 # Bowel Movements 1 Cardiovascular: RSR Respiratory: decreased breath sounds Abdomen: soft, distended, decreased bowel sounds Extremities: no edema, no tenderness, no cyanosis Plan Problems: (1) Rectal mass Assessment & Plan: 45F rectal mass. tolerating diet not obstructed obstetrics gynecology md input noted onc input noted tumor markers unfortunately not resectable given CT findings. neoadjuvant tx spoke with patient and sister in detail today. given history. incarcerated shelter for 1 year. blood in stool noted while incarcerated. released and told to get colonoscopy. covid began and took a long time to get eval after. went to outside facility and noted large hepatic flexure cancer near obstructive. spoke with patient and sister. spoke with gi and pcp and oncology. tho she is not completely obstructed she is very close and scope noted prior near obstructing. potential for emergency obstructing as abd and ct demonstrated proximal area noted. considerations for diversion. but given large ovarian pathology as well potential malignant vs benign. will cont to discuss with patient and medical teams about care plan. Chest: Atelectatic changes are seen at both lung bases. There may also be some hazy consolidation of portions of both lower lobes. No effusion. No dense consolidation. The upper lobes are clear as is the right middle lobe. The heart size is normal. No pericardial effusion. No mediastinal or hilar mass or adenopathy. The left thyroid lobe is enlarged, with a dominant nodule that measures at least 3.7 cm in diameter. There is also calcified nodule in the left thyroid lobe lower pole. No axillary or chest wall mass or adenopathy. The esophagus is unremarkable. Abdomen pelvis: There is a large midline pelvic cystic mass which measures 21.4 cm transverse by 10 cm AP by 16.2 cm craniocaudad. This appears to be largely unilocular, but the coronal images suggest 2 small locules on the inferior border of either side. It is thin-walled This is in the midline anterior to the uterus and above the dome of the bladder. No pelvic adenopathy is demonstrated. There is some infiltration of the presacral fat. There is a very large mass which appears to be centered in the lumen of the ascending colon. This demonstrates heterogeneous and enhancement with some areas of low-attenuation. This measures 11.8 cm AP by 9 cm transverse by 10.6 cm craniocaudad. There is evidence of infiltration of the serosal fat. There is some thickening of the wall of these hepatic flexure and proximal transverse colon distal to this. The cecum and ascending colon proximal to this are slightly distended, fluid-filled. There is no small bowel distention, although ingested contrast has not traversed the entirety of the small bowel. There are a few prominent regional mesenteric lymph nodes. There is infiltration of the presacral fat. No evidence of diverticulosis or diverticulitis. No small bowel wall thickening. No free or loculated intraperitoneal gas or fluid is evident. No definite solid liver lesion Subcentimeter low-attenuation lesion is seen at the junction of segments 4A and 4B within the liver. Another is seen in segment 2. The gallbladder contains gallstones. There is no biliary ductal dilatation. The pancreas, spleen, adrenals, kidneys are all unremarkable. No retroperitoneal mass or adenopathy. There is diffuse mild edema of the subcutaneous fat. The bones are unremarkable. IMPRESSION: 11.8 x 9 x 10.6 cm heterogeneous mass centered in the lumen of the ascending colon, highly suspicious for primary colon malignancy. There is suggestion of serosal invasion and there are a few prominent nonspecific regional nodes present. There is very mild distention of the colon proximal to this 21.4 10 x 16.2 cm anterior midline cystic pelvic mass. Although largely thin- walled and demonstrating only 2 small locules, the size is worrisome for gynecological malignancy. The technologist notes describes history of ovarian carcinoma. Correlate with of clinical history Nonspecific infiltration of the presacral fat 3.7 cm left lobe thyroid nodule. Consider further evaluation with sonography Basilar pulmonary parenchymal atelectasis and possibly some lower lobe hazy consolidation Subcentimeter low-attenuation liver lesions, too small to characterize Cholelithiasis (2) UTI (urinary tract infection) (3) Altered mental status (4) Opiate use (5) Seizure-like activity (6) Anemia Sandor Fuentes May 31, 2020 09:44
--- NOTE | 2020-05-31 10:09 | Diagnostic Imaging Report ---
EXAM: XRAY Abdomen 1v HISTORY: Abdominal pain COMPARISON: None. TECHNIQUE: Sickle frontal view of the abdomen obtained. FINDINGS: There is a nonspecific bowel gas pattern. There is relative paucity of small bowel gas noted Stool lucencies noted throughout the colon. No definite pathologic calcifications identified. There is no sign of free air. No acute abnormality noted of the visualized osseous structures. IMPRESSION: NONSPECIFIC BOWEL GAS PATTERN. STOOL LUCENCIES THROUGHOUT THE COLON.
--- NOTE | 2020-05-31 11:43 | Infectious Diseases Prog Note ---
Assessment/Plan Assessment/Plan antibiotics : none A 1. gram positive UTI s/p rx 2. pneumonia s/p rx 3. seizures 4. leucocytosis improving 5. schizophrenia 6. abdominal malignancy P 1. observe off antibiotics 2. will follow up cultures Subjective ROS Limited/Unobtainable: Yes Allergies: Coded Allergies: No Known Allergies (Unverified , 05/17/20) Objective Last 24 Hour Vital Signs Date Time Temp Pulse Resp B/P (MAP) Pulse Ox O2 Delivery O2 Flow Rate FiO2 05/31/20 09:00 Room Air 05/31/20 08:00 97.3 86 18 139/88 (105) 96 05/31/20 03:52 98.6 92 16 138/86 (103) 94 05/30/20 20:23 Room Air 05/30/20 19:56 98.1 93 18 131/81 (98) 95 05/30/20 16:00 98.1 102 16 142/103 (116) 100 05/30/20 12:00 98.2 90 16 146/97 (113) 96 Height (Feet): 5 Height (Inches): 6.00 Weight (Pounds): 130 Respiratory/Chest: lungs clear Cardiovascular: normal rate, regular rhythm, no gallop/murmur Abdomen: soft, non tender Extremities: no edema Current Medications Medications (Trade) Dose Ordered Sig/Laura Route PRN Reason Start Time Stop Time Status Last Admin Dose Admin Acetaminophen (Tylenol) 650 mg Q4H PRN ORAL Mild Pain (Pain Scale 1-3) 05/17/20 18:45 06/16/20 18:44 05/20/20 21:29 Al Hydroxide/Mg Hydroxide (Mylanta) 30 ml Q6H PRN ORAL heartburn 05/17/20 18:45 06/16/20 18:44 Clonidine HCl (Catapres Tab) 0.1 mg Q4H PRN ORAL For High Blood Pressure 05/18/20 19:00 08/16/20 18:59 05/30/20 04:01 Iron Sucrose 100 mg/Sodium Chloride 60 ml @ 240 mls/hr BEDTIME IVPB 05/27/20 21:00 05/31/20 21:14 05/30/20 21:01 Levetiracetam (Keppra) 500 mg Q12HR ORAL 05/17/20 21:00 07/01/20 20:59 05/31/20 08:23 Pantoprazole (Protonix) 40 mg DAILY ORAL 05/18/20 09:00 06/17/20 08:59 05/31/20 08:23 Risperidone (RisperDAL) 1 mg BEDTIME ORAL 05/20/20 21:00 07/04/20 20:59 05/30/20 21:01 Melvin Rabago MD May 31, 2020 11:43
[2020-05-31 12:00] VITALS: BP 140/75
--- NOTE | 2020-05-31 12:56 | NUR ---
DISCHARGE PLANNING PATIENT HAS BEEN REFERRED TO [facility] [phone] Addendum: 05/31/20 at 1635 by VIDHI VANN LVN FOLLOW UP CALL MADE. ADMISSIONS NOT AVAILABLE. ADVISED TO CALL BACK TOMORROW PER JUSTIN
[2020-05-31 14:13] LABS: BASOPHILS % (AUTO) 0.6 % (0.0-2.0); HEMATOCRIT 27.3 % (37.0-47.0); HEMOGLOBIN 8.5 G/DL (12.0-16.0); LYMPHOCYTES % (AUTO) 12.6 % (20.0-45.0); MEAN CORPUSCULAR VOLUME 72 FL (80-99); MONOCYTES % (AUTO) 4.3 % (1.0-10.0); NEUTROPHILS % (AUTO) 80.5 % (45.0-75.0); PLATELET COUNT 647 K/UL (150-450); RED BLOOD COUNT 3.77 M/UL (4.20-5.40); RED CELL DISTRIBUTION WIDTH 23.1 % (11.6-14.8); WHITE BLOOD COUNT 13.9 K/UL (4.8-10.8)
[2020-05-31 14:28] LABS: ANION GAP 5 mmol/L (5-15); BLOOD UREA NITROGEN 11 mg/dL (7-18); CALCIUM 8.7 MG/DL (8.5-10.1); CARBON DIOXIDE 28 MMOL/L (21-32); CHLORIDE 103 MMOL/L (98-107); CREATININE 0.7 MG/DL (0.55-1.30); POTASSIUM 3.4 MMOL/L (3.5-5.1); SODIUM 136 MMOL/L (136-145)
[2020-05-31 16:00] VITALS: BP 122/78
--- NOTE | 2020-05-31 16:35 | NUR ---
CASE MANAGEMENT:REVIEW SI;GRAM POSITIVE UTI. ABD MALIGNANCY. SCHIZOPHRENIA. PNEUMONIA. SEIZURE. 98.6 95 18 140/75 94% ON RA WBC 13.9 H/H 8.5/27.3 PLT 647 K+ 3.4 BG 137 IS;IRON SUCROSE IV RISPERDAL PO QD PROTONIX PO QD KEPPRA PO Q12 MED SURG STATUS DCP;FROM BOARD AND CARE PLAN; SNF PLACEMENT
--- NOTE | 2020-05-31 19:09 | NUR ---
HAND-OFF: Report given to DIANE Benson.
[2020-05-31] MEDS ORDERED: Zolpidem 5mg tab ORAL PRN (19:30)
[2020-05-31 20:02] VITALS: BP 123/77
--- NOTE | 2020-05-31 20:07 | NUR ---
NURSE NOTES: Received patient awake, verbal but delayed, no SOB noted, with essentially normal vital signs.
[2020-05-31] MEDS: Iron Sucrose 100 MG in NS 55 ML IVPB SCH (20:42)
--- NOTE | 2020-05-31 21:21 | General Progress Note ---
Subjective Allergies: Coded Allergies: No Known Allergies (Unverified , 05/17/20) Subjective above noted d/w surgery d/w sister RUBÉN ([phone]) Objective Last 24 Hour Vital Signs Date Time Temp Pulse Resp B/P (MAP) Pulse Ox O2 Delivery O2 Flow Rate FiO2 05/31/20 20:29 Room Air 05/31/20 20:02 97.5 89 16 123/77 (92) 97 05/31/20 16:00 98.2 95 18 122/78 (93) 96 05/31/20 12:00 97.5 84 18 140/75 (96) 96 05/31/20 09:00 Room Air 05/31/20 08:00 97.3 86 18 139/88 (105) 96 05/31/20 03:52 98.6 92 16 138/86 (103) 94 Intake and Output 05/30/20 05/31/20 19:00 07:00 Intake Total 500 ml 260 ml Output Total 500 ml Balance 0 ml 260 ml Intake Oral 500 ml 200 ml IV Total 60 ml Output Urine Total 500 ml # Voids 3 # Bowel Movements 1 Laboratory Tests 05/31/20 13:20: White Blood Count 13.9H, Red Blood Count 3.77L, Hemoglobin 8.5L, Hematocrit 27.3L, Mean Corpuscular Volume 72L, Mean Corpuscular Hemoglobin 22.5L, Mean Corpuscular Hemoglobin Concent 31.1L, Red Cell Distribution Width 23.1H, Platelet Count 647H, Mean Platelet Volume 5.3L, Neutrophils (%) (Auto) 80.5H, Lymphocytes (%) (Auto) 12.6L, Monocytes (%) (Auto) 4.3, Eosinophils (%) (Auto) 2.0, Basophils (%) (Auto) 0.6, Sodium Level 136, Potassium Level 3.4L, Chloride Level 103, Carbon Dioxide Level 28, Anion Gap 5, Blood Urea Nitrogen 11, Creatinine 0.7, Estimat Glomerular Filtration Rate > 60, Glucose Level 137H, Calcium Level 8.7 Height (Feet): 5 Height (Inches): 6.00 Weight (Pounds): 130 Objective Thin WW NCAT supple CTA RR abd soft ND no edema Assessment/Plan Status: progressing - progressing spoke with . patient not on antipsychotics prior to hosp. therefore nokt n.m.s. 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
--- NOTE | 2020-05-31 23:04 | Psychiatric Progress Note ---
Psychiatry Progress Note Psychiatry Progress Note Subjective the pt has slight cognitive impairment wants to have surgery but had more questions rom the surgeon the pt has no agitation. the pt is calm poor cognition Medications Current Medications Medications (Trade) Dose Ordered Sig/Laura Route PRN Reason Start Time Stop Time Status Last Admin Dose Admin Acetaminophen (Tylenol) 650 mg Q4H PRN ORAL Mild Pain (Pain Scale 1-3) 05/17/20 18:45 06/16/20 18:44 05/20/20 21:29 Al Hydroxide/Mg Hydroxide (Mylanta) 30 ml Q6H PRN ORAL heartburn 05/17/20 18:45 06/16/20 18:44 Clonidine HCl (Catapres Tab) 0.1 mg Q4H PRN ORAL For High Blood Pressure 05/18/20 19:00 08/16/20 18:59 05/30/20 04:01 Levetiracetam (Keppra) 500 mg Q12HR ORAL 05/17/20 21:00 07/01/20 20:59 05/31/20 20:42 Pantoprazole (Protonix) 40 mg DAILY ORAL 05/18/20 09:00 06/17/20 08:59 05/31/20 08:23 Risperidone (RisperDAL) 1 mg BEDTIME ORAL 05/20/20 21:00 07/04/20 20:59 05/31/20 20:42 Zolpidem Tartrate (Ambien) 5 mg HSPRN PRN ORAL Insomnia 05/31/20 19:30 06/07/20 19:29 Neurological/Psychiatric: Reports: anxiety, depressed, emotional problems; Denies: no symptoms, headache, numbness, paresthesia, pre-existing deficit, seizure, tingling, tremors, weakness, other Allergies: Coded Allergies: No Known Allergies (Unverified , 05/17/20) Objective Data Height (Feet): 5 Height (Inches): 6.00 Weight (Pounds): 130 General Appearance: no apparent distress, alert, alert oriented x3 Appearance: no abnormalities noted Additional Comments: Mood is disoriented to situation. Mood is neutral to anxious. Affect is constricted, congruent with mood. Thought process is concrete. Thought content, no suicidal or homicidal ideation. Cognition is impaired. Insight and judgment is impaired. ASSESSMENT: Bath I Acute toxic encephalopathy due to UTI and pneumonia. Schizophrenia. Bath II Deferred. Bath III Seizure, UTI, and pneumonia. Bath IV Low. Bath V 20. PLAN: 1. Low-dose of antipsychotics. 2. Ativan p.r.n. 3. We will continue to follow and readjust the medications. Assessment/Plan Status: progressing - progressing spoke with . patient not on antipsychotics prior to hosp. therefore nokt n.m.s. metabolic encephalopathy Ana Lopez MD May 31, 2020 23:04
[2020-06-01 03:53] VITALS: BP 128/76
--- NOTE | 2020-06-01 07:00 | NUR ---
HAND-OFF: Report given to Paxton Cunningham RN.
--- NOTE | 2020-06-01 07:06 | NUR ---
NURSE NOTES: Received report from DIANE Benson. Patient in bed, awake, alert and verbally responsive. able to make needs known. Respiration is even and unlabored. No complaint of pain or discomfort. Skin is warm and dry to touch. Abdomen is soft and non distended. Kept clean and comfortable.Seizure precaution maintained, side rails padded and suction present at bedside. Bed in low and locked position.Iv site noted. Call light is at bedside. Will continue plan of care.
[2020-06-01 08:00] VITALS: BP 134/76
--- NOTE | 2020-06-01 08:13 | General Progress Note ---
Subjective Allergies: Coded Allergies: No Known Allergies (Unverified , 05/17/20) Subjective overall same confused no distress Objective Last 24 Hour Vital Signs Date Time Temp Pulse Resp B/P (MAP) Pulse Ox O2 Delivery O2 Flow Rate FiO2 06/01/20 03:53 98.0 90 18 128/76 (93) 94 05/31/20 20:29 Room Air 05/31/20 20:02 97.5 89 16 123/77 (92) 97 05/31/20 16:00 98.2 95 18 122/78 (93) 96 05/31/20 12:00 97.5 84 18 140/75 (96) 96 05/31/20 09:00 Room Air Intake and Output 05/31/20 06/01/20 19:00 07:00 Intake Total 1200 ml 260 ml Balance 1200 ml 260 ml Intake Oral 1200 ml 200 ml IV Total 60 ml # Voids 5 4 Laboratory Tests 05/31/20 13:20: White Blood Count 13.9H, Red Blood Count 3.77L, Hemoglobin 8.5L, Hematocrit 27.3L, Mean Corpuscular Volume 72L, Mean Corpuscular Hemoglobin 22.5L, Mean Corpuscular Hemoglobin Concent 31.1L, Red Cell Distribution Width 23.1H, Platelet Count 647H, Mean Platelet Volume 5.3L, Neutrophils (%) (Auto) 80.5H, Lymphocytes (%) (Auto) 12.6L, Monocytes (%) (Auto) 4.3, Eosinophils (%) (Auto) 2.0, Basophils (%) (Auto) 0.6, Sodium Level 136, Potassium Level 3.4L, Chloride Level 103, Carbon Dioxide Level 28, Anion Gap 5, Blood Urea Nitrogen 11, Creatinine 0.7, Estimat Glomerular Filtration Rate > 60, Glucose Level 137H, Calcium Level 8.7 Height (Feet): 5 Height (Inches): 6.00 Weight (Pounds): 130 Objective WDWN NAD clear breath sounds bilaterally without rhonchi or wheeze [id number] without MRG NABS nontender no HSM no CCE confused reduced ROM Assessment/Plan Status: progressing - progressing spoke with . patient not on antipsychotics prior to hosp. therefore nokt n.m.s. 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
[2020-06-01 09:00] LABS: BASOPHILS % (AUTO) 0.8 % (0.0-2.0); EOSINOPHILS % (AUTO) 1.8 % (0.0-3.0); HEMATOCRIT 26.8 % (37.0-47.0); HEMOGLOBIN 8.3 G/DL (12.0-16.0); LYMPHOCYTES % (AUTO) 10.3 % (20.0-45.0); MEAN CORPUSCULAR VOLUME 73 FL (80-99); MONOCYTES % (AUTO) 6.3 % (1.0-10.0); NEUTROPHILS % (AUTO) 80.8 % (45.0-75.0); PLATELET COUNT 612 K/UL (150-450); RED BLOOD COUNT 3.67 M/UL (4.20-5.40); RED CELL DISTRIBUTION WIDTH 24.2 % (11.6-14.8); WHITE BLOOD COUNT 14.2 K/UL (4.8-10.8)
--- NOTE | 2020-06-01 09:05 | NUR ---
RD ASSESSMENT & RECOMMENDATIONS SEE CARE ACTIVITY FOR COMPLETE ASSESSMENT DAILY ESTIMATED NEEDS: Needs based on Suspected malignancy 63.5kg 25-30 kcals/kg 3293-6485 total kcals 1-1.5 g protein/kg 64-96 g total protein 25-30 mL/kg 5020-4668 total fluid mLs NUTRITION DIAGNOSIS: Altered nutrition related lab values r/t clinical status as evidenced by elev WBC (18.3 ->13.9), low Hgb (7.9 ->8.5), SOB (+) -> now resolved, Creat kinase elevated, now wnl. CURRENT DIET: regular ms ground PO DIET RECOMMENDATIONS: Maintain Regular diet, texture per MANAGER SHELL ADDITIONAL RECOMMENDATIONS: 1) Maintain calibrated bed scale wts 2) Monitor for continued good po intake, need for MANAGER SHELL eval Currently on ms ground texture 4) Monitor lytes, replete as needed (low K)
[2020-06-01 09:13] LABS: ANION GAP 4 mmol/L (5-15); BLOOD UREA NITROGEN 10 mg/dL (7-18); CALCIUM 8.5 MG/DL (8.5-10.1); CARBON DIOXIDE 29 MMOL/L (21-32); CHLORIDE 104 MMOL/L (98-107); CREATININE 0.6 MG/DL (0.55-1.30); POTASSIUM 3.7 MMOL/L (3.5-5.1); SODIUM 137 MMOL/L (136-145)
--- NOTE | 2020-06-01 11:03 | NUR ---
PT NOTE Attempted to see patient for PT treatment. Patient declining to participate with PT, states she is comfortable in bed. Paxton CONTRERAS notified, will follow.
--- NOTE | 2020-06-01 11:06 | NUR ---
PT WEEKLY PROGRESS NOTE Patient being seen by PT for strengthening exercises, bed mobility training, transfer training and gait training. Patient demonstrating improved participation and initiation of movement. Patient requires min/mod assist for bed mobility and mod assist of 2 for transfers due to instability. Patient able to ambulate 25 ft with bilateral hand hold assist/mod assist. Patient will benefit from continued skilled inpatient PT intervention to increase strength, balance, safety and functional mobility.
--- NOTE | 2020-06-01 11:24 | Infectious Diseases Prog Note ---
Assessment/Plan Assessment/Plan antibiotics : none A 1. gram positive UTI s/p rx 2. pneumonia s/p rx 3. seizures 4. leucocytosis improving 5. schizophrenia 6. abdominal malignancy P 1. observe off antibiotics 2. will follow up cultures Subjective ROS Limited/Unobtainable: Yes Allergies: Coded Allergies: No Known Allergies (Unverified , 05/17/20) Objective Last 24 Hour Vital Signs Date Time Temp Pulse Resp B/P (MAP) Pulse Ox O2 Delivery O2 Flow Rate FiO2 06/01/20 09:00 Room Air 06/01/20 08:00 98.0 94 18 134/76 (95) 94 06/01/20 03:53 98.0 90 18 128/76 (93) 94 05/31/20 20:29 Room Air 05/31/20 20:02 97.5 89 16 123/77 (92) 97 05/31/20 16:00 98.2 95 18 122/78 (93) 96 05/31/20 12:00 97.5 84 18 140/75 (96) 96 Height (Feet): 5 Height (Inches): 6.00 Weight (Pounds): 130 Respiratory/Chest: lungs clear Cardiovascular: normal rate, regular rhythm, no gallop/murmur Abdomen: soft, non tender Extremities: no edema Laboratory Tests Test 05/31/20 13:20 06/01/20 08:50 White Blood Count 13.9 K/UL (4.8-10.8) H 14.2 K/UL (4.8-10.8) H Red Blood Count 3.77 M/UL (4.20-5.40) L 3.67 M/UL (4.20-5.40) L Hemoglobin 8.5 G/DL (12.0-16.0) L 8.3 G/DL (12.0-16.0) L Hematocrit 27.3 % (37.0-47.0) L 26.8 % (37.0-47.0) L Mean Corpuscular Volume 72 FL (80-99) L 73 FL (80-99) L Mean Corpuscular Hemoglobin 22.5 PG (27.0-31.0) L 22.6 PG (27.0-31.0) L Mean Corpuscular Hemoglobin Concent 31.1 G/DL (32.0-36.0) L 30.9 G/DL (32.0-36.0) L Red Cell Distribution Width 23.1 % (11.6-14.8) H 24.2 % (11.6-14.8) H Platelet Count 647 K/UL (150-450) H 612 K/UL (150-450) H Mean Platelet Volume 5.3 FL (6.5-10.1) L 5.5 FL (6.5-10.1) L Neutrophils (%) (Auto) 80.5 % (45.0-75.0) H 80.8 % (45.0-75.0) H Lymphocytes (%) (Auto) 12.6 % (20.0-45.0) L 10.3 % (20.0-45.0) L Monocytes (%) (Auto) 4.3 % (1.0-10.0) 6.3 % (1.0-10.0) Eosinophils (%) (Auto) 2.0 % (0.0-3.0) 1.8 % (0.0-3.0) Basophils (%) (Auto) 0.6 % (0.0-2.0) 0.8 % (0.0-2.0) Sodium Level 136 MMOL/L (136-145) 137 MMOL/L (136-145) Potassium Level 3.4 MMOL/L (3.5-5.1) L 3.7 MMOL/L (3.5-5.1) Chloride Level 103 MMOL/L (98-107) 104 MMOL/L (98-107) Carbon Dioxide Level 28 MMOL/L (21-32) 29 MMOL/L (21-32) Anion Gap 5 mmol/L (5-15) 4 mmol/L (5-15) L Blood Urea Nitrogen 11 mg/dL (7-18) 10 mg/dL (7-18) Creatinine 0.7 MG/DL (0.55-1.30) 0.6 MG/DL (0.55-1.30) Estimat Glomerular Filtration Rate > 60 mL/min (>60) > 60 mL/min (>60) Glucose Level 137 MG/DL (74-106) H 101 MG/DL (74-106) Calcium Level 8.7 MG/DL (8.5-10.1) 8.5 MG/DL (8.5-10.1) Current Medications Medications (Trade) Dose Ordered Sig/Laura Route PRN Reason Start Time Stop Time Status Last Admin Dose Admin Acetaminophen (Tylenol) 650 mg Q4H PRN ORAL Mild Pain (Pain Scale 1-3) 05/17/20 18:45 06/16/20 18:44 05/20/20 21:29 Al Hydroxide/Mg Hydroxide (Mylanta) 30 ml Q6H PRN ORAL heartburn 05/17/20 18:45 06/16/20 18:44 Clonidine HCl (Catapres Tab) 0.1 mg Q4H PRN ORAL For High Blood Pressure 05/18/20 19:00 08/16/20 18:59 05/30/20 04:01 Levetiracetam (Keppra) 500 mg Q12HR ORAL 05/17/20 21:00 07/01/20 20:59 06/01/20 08:07 Pantoprazole (Protonix) 40 mg DAILY ORAL 05/18/20 09:00 06/17/20 08:59 06/01/20 08:07 Risperidone (RisperDAL) 1 mg BEDTIME ORAL 05/20/20 21:00 07/04/20 20:59 05/31/20 20:42 Zolpidem Tartrate (Ambien) 5 mg HSPRN PRN ORAL Insomnia 05/31/20 19:30 06/07/20 19:29 Melvin Rabago MD Jun 01, 2020 11:23
[2020-06-01 12:00] VITALS: BP 130/70
--- NOTE | 2020-06-01 12:37 | NUR ---
COTTON PROGRAM TECHNICIAN NOTE PT requested this SW to assist w/ mailing back the document. The envelop is sealed w/ pre-paid stamp. SW placed the envelop in the outgoing mail box.
--- NOTE | 2020-06-01 14:44 | NUR ---
[employer] SI: DORIS T. 98.0 HR 90 RR 18 B/P 128/76 RA 94% WBC 14.2 IS: RISPERDAL PO DCP MED/SURG STATUS
--- NOTE | 2020-06-01 15:13 | Surgery Progress Note ---
Surgery Progress Note Subjective Additional Comments imaging reviewed discussed with team appreciate psych input spoke with patient at length at bedside. i explained to her current condition and findings. we discussed potential care plans. patient is under the belief that if she has surgery she will be cured as this may have been misinterpreted by her prior. i explained in depth her condition, colonic tumor size pathology etc and as well large ovarian pathology. i explained purpose of surgery in case she becomes obstructed as palliative means. she seemed to understand and was somewhat distant after clearly explaining to her this. in discussing palliative measures she stated that if therapy is not with snf outcome she is not interested. she would like surgery if curative but needs to think further about surgery otherwise. called sister at patients request and to keep her informed but no answer today. currently tolerating diet and still having bowel function. not currently obstructed Objective Last 24 Hour Vital Signs Date Time Temp Pulse Resp B/P (MAP) Pulse Ox O2 Delivery O2 Flow Rate FiO2 06/01/20 12:00 97.6 85 17 130/70 (90) 96 06/01/20 09:00 Room Air 06/01/20 08:00 98.0 94 18 134/76 (95) 94 06/01/20 03:53 98.0 90 18 128/76 (93) 94 05/31/20 20:29 Room Air 05/31/20 20:02 97.5 89 16 123/77 (92) 97 05/31/20 16:00 98.2 95 18 122/78 (93) 96 I&O Intake and Output 05/31/20 06/01/20 19:00 07:00 Intake Total 1200 ml 260 ml Balance 1200 ml 260 ml Intake Oral 1200 ml 200 ml IV Total 60 ml # Voids 5 4 Cardiovascular: RSR Respiratory: clear Abdomen: soft, non-tender, present bowel sounds Extremities: no edema, no tenderness, no cyanosis Laboratory Tests Test 06/01/20 08:50 White Blood Count 14.2 K/UL (4.8-10.8) H Red Blood Count 3.67 M/UL (4.20-5.40) L Hemoglobin 8.3 G/DL (12.0-16.0) L Hematocrit 26.8 % (37.0-47.0) L Mean Corpuscular Volume 73 FL (80-99) L Mean Corpuscular Hemoglobin 22.6 PG (27.0-31.0) L Mean Corpuscular Hemoglobin Concent 30.9 G/DL (32.0-36.0) L Red Cell Distribution Width 24.2 % (11.6-14.8) H Platelet Count 612 K/UL (150-450) H Mean Platelet Volume 5.5 FL (6.5-10.1) L Neutrophils (%) (Auto) 80.8 % (45.0-75.0) H Lymphocytes (%) (Auto) 10.3 % (20.0-45.0) L Monocytes (%) (Auto) 6.3 % (1.0-10.0) Eosinophils (%) (Auto) 1.8 % (0.0-3.0) Basophils (%) (Auto) 0.8 % (0.0-2.0) Sodium Level 137 MMOL/L (136-145) Potassium Level 3.7 MMOL/L (3.5-5.1) Chloride Level 104 MMOL/L (98-107) Carbon Dioxide Level 29 MMOL/L (21-32) Anion Gap 4 mmol/L (5-15) L Blood Urea Nitrogen 10 mg/dL (7-18) Creatinine 0.6 MG/DL (0.55-1.30) Estimat Glomerular Filtration Rate > 60 mL/min (>60) Glucose Level 101 MG/DL (74-106) Calcium Level 8.5 MG/DL (8.5-10.1) Plan Problems: (1) Rectal mass Assessment & Plan: 44F rectal mass. 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 neoadjuvant tx spoke with patient and sister in detail today. given history. incarcerated shelter for 1 year. blood in stool noted while incarcerated. released and told to get colonoscopy. covid began and took a long time to get eval after. went to outside facility and noted large hepatic flexure cancer near obstructive. spoke with patient and sister. spoke with gi and pcp and oncology. tho she is not completely obstructed she is very close and scope noted prior near obstr ucting. potential for emergency obstructing as abd and ct demonstrated proximal area noted. considerations for diversion. but given large ovarian pathology as well potential malignant vs benign. will cont to discuss with patient and medical teams about care plan. imaging reviewed discussed with team appreciate psych input spoke with patient at length at bedside. i explained to her current condition and findings. we discussed potential care plans. patient is under the belief that if she has surgery she will be cured as this may have been misinterpreted by her prior. i explained in depth her condition, colonic tumor size pathology etc and as well large ovarian pathology. i explained purpose of surgery in case she becomes obstructed as palliative means. she seemed to understand and was somewhat distant after clearly explaining to her this. 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 she would like surgery if curative but needs to think further about surgery otherwise. called sister at patients request and to keep her informed but no answer today. currently tolerating diet and still having bowel function. not currently obstructed Chest: Atelectatic changes are seen at both lung bases. There may also be some hazy consolidation of portions of both lower lobes. No effusion. No dense consolidation. The upper lobes are clear as is the right middle lobe. The heart size is normal. No pericardial effusion. No mediastinal or hilar mass or adenopathy. The left thyroid lobe is enlarged, with a dominant nodule that measures at least 3.7 cm in diameter. There is also calcified nodule in the left thyroid lobe lower pole. No axillary or chest wall mass or adenopathy. The esophagus is unremarkable. Abdomen pelvis: There is a large midline pelvic cystic mass which measures 21.4 cm transverse by 10 cm AP by 16.2 cm craniocaudad. This appears to be largely unilocular, but the coronal images suggest 2 small locules on the inferior border of either side. It is thin-walled This is in the midline anterior to the uterus and above the dome of the bladder. No pelvic adenopathy is demonstrated. There is some infiltration of the presacral fat. There is a very large mass which appears to be centered in the lumen of the ascending colon. This demonstrates heterogeneous and enhancement with some areas of low-attenuation. This measures 11.8 cm AP by 9 cm transverse by 10.6 cm craniocaudad. There is evidence of infiltration of the serosal fat. There is some thickening of the wall of these hepatic flexure and proximal transverse colon distal to this. The cecum and ascending colon proximal to this are slightly distended, fluid-filled. There is no small bowel distention, although ingested contrast has not traversed the entirety of the small bowel. There are a few prominent regional mesenteric lymph nodes. There is infiltration of the presacral fat. No evidence of diverticulosis or diverticulitis. No small bowel wall thickening. No free or loculated intraperitoneal gas or fluid is evident. No definite solid liver lesion Subcentimeter low-attenuation lesion is seen at the junction of segments 4A and 4B within the liver. Another is seen in segment 2. The gallbladder contains gallstones. There is no biliary ductal dilatation. The pancreas, spleen, adrenals, kidneys are all unremarkable. No retroperitoneal mass or adenopathy. There is diffuse mild edema of the subcutaneous fat. The bones are unremarkable. IMPRESSION: 11.8 x 9 x 10.6 cm heterogeneous mass centered in the lumen of the ascending colon, highly suspicious for primary colon malignancy. There is suggestion of serosal invasion and there are a few prominent nonspecific regional nodes present. There is very mild distention of the colon proximal to this 21.4 10 x 16.2 cm anterior midline cystic pelvic mass. Although largely thin- walled and demonstrating only 2 small locules, the size is worrisome for gynecological malignancy. The technologist notes describes history of ovarian carcinoma. Correlate with of clinical history Nonspecific infiltration of the presacral fat 3.7 cm left lobe thyroid nodule. Consider further evaluation with sonography Basilar pulmonary parenchymal atelectasis and possibly some lower lobe hazy consolidation Subcentimeter low-attenuation liver lesions, too small to characterize Cholelithiasis (2) UTI (urinary tract infection) (3) Altered mental status (4) Opiate use (5) Seizure-like activity (6) Anemia Sandor Fuentes Jun 01, 2020 15:13
[2020-06-01 16:00] VITALS: BP 140/68
--- NOTE | 2020-06-01 17:02 | NUR ---
*-*DISCAHRGE PLANNING*-* PATIENT HAS BEEN REFERRED TO: [facility] P: [phone] [facility] P: [phone] [facility] P: [phone] [facility] P: [phone] [facility] P: [phone] [facility] P: [phone] [facility] P: [phone] [facility] P: [phone] [facility] P: [phone] MISA[facility] ALVO P: [phone] [facility] P: [phone]
--- NOTE | 2020-06-01 18:31 | NUR ---
INSURANCE CLINICALS/ REVIEWS FAXED TO [facility] (05/30-06/01) [facility] P [phone] F [phone]
--- NOTE | 2020-06-01 19:04 | NUR ---
NURSE HAND-OFF: Important Events on Shift:n/a Patient Status: stable Diet: regular Pending Orders: n/a Pending Results/Labs:n/a Pending MD notification:n/a Latest Vital Signs: Temperature 97.5 , Pulse 80 , B/P 140 /68 , Respiratory Rate 18 , O2 SAT 97 , Room Air, O2 Flow Rate . Vital Sign Comment: stable Latest Funez Fall Score: 50 Fall Risk: High Risk Safety Measures: Call light Within Reach, Bed Alarm Zone 1, Side Rails Side Rails x2, Bed position Low and Locked. Fall Precautions: Yellow Socks Yellow Gown Door Sign Patient Fall Education Report given to DIANE Benson.
[2020-06-01 19:31] VITALS: BP 148/84
--- NOTE | 2020-06-01 19:51 | NUR ---
NURSE NOTES: received patient comfortably resting in bed, no SOB, kept clean and dry.
--- NOTE | 2020-06-01 23:02 | General Progress Note ---
Subjective Allergies: Coded Allergies: No Known Allergies (Unverified , 05/17/20) Subjective above noted d/w patient re surgery Objective Last 24 Hour Vital Signs Date Time Temp Pulse Resp B/P (MAP) Pulse Ox O2 Delivery O2 Flow Rate FiO2 06/01/20 20:09 Room Air 06/01/20 19:31 97.5 87 18 148/84 (105) 98 06/01/20 16:00 97.5 80 18 140/68 (92) 97 06/01/20 12:00 97.6 85 17 130/70 (90) 96 06/01/20 09:00 Room Air 06/01/20 08:00 98.0 94 18 134/76 (95) 94 06/01/20 03:53 98.0 90 18 128/76 (93) 94 Intake and Output 05/31/20 06/01/20 19:00 07:00 Intake Total 1200 ml 260 ml Balance 1200 ml 260 ml Intake Oral 1200 ml 200 ml IV Total 60 ml # Voids 5 4 Laboratory Tests 06/01/20 08:50: White Blood Count 14.2H, Red Blood Count 3.67L, Hemoglobin 8.3L, Hematocrit 26.8L, Mean Corpuscular Volume 73L, Mean Corpuscular Hemoglobin 22.6L, Mean Corpuscular Hemoglobin Concent 30.9L, Red Cell Distribution Width 24.2H, Platelet Count 612H, Mean Platelet Volume 5.5L, Neutrophils (%) (Auto) 80.8H, Lymphocytes (%) (Auto) 10.3L, Monocytes (%) (Auto) 6.3, Eosinophils (%) (Auto) 1.8, Basophils (%) (Auto) 0.8, Sodium Level 137, Potassium Level 3.7, Chloride Level 104, Carbon Dioxide Level 29, Anion Gap 4L, Blood Urea Nitrogen 10, Creatinine 0.6, Estimat Glomerular Filtration Rate > 60, Glucose Level 101, Calcium Level 8.5 Height (Feet): 5 Height (Inches): 6.00 Weight (Pounds): 130 Objective Thin WW NCAT supple CTA RR abd soft ND no edema Assessment/Plan Status: progressing - progressing spoke with . patient not on antipsychotics prior to hosp. therefore nokt n.m.s. 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
--- NOTE | 2020-06-01 23:09 | Psychiatric Progress Note ---
Psychiatry Progress Note Psychiatry Progress Note Subjective the pt has slight cognitive impairment wants to have surgery but had more questions rom the surgeon the pt has no agitation. the pt is calm poor cognition Medications Current Medications Medications (Trade) Dose Ordered Sig/Laura Route PRN Reason Start Time Stop Time Status Last Admin Dose Admin Acetaminophen (Tylenol) 650 mg Q4H PRN ORAL Mild Pain (Pain Scale 1-3) 05/17/20 18:45 06/16/20 18:44 05/20/20 21:29 Al Hydroxide/Mg Hydroxide (Mylanta) 30 ml Q6H PRN ORAL heartburn 05/17/20 18:45 06/16/20 18:44 Clonidine HCl (Catapres Tab) 0.1 mg Q4H PRN ORAL For High Blood Pressure 05/18/20 19:00 08/16/20 18:59 05/30/20 04:01 Levetiracetam (Keppra) 500 mg Q12HR ORAL 05/17/20 21:00 07/01/20 20:59 06/01/20 20:46 Pantoprazole (Protonix) 40 mg DAILY ORAL 05/18/20 09:00 06/17/20 08:59 06/01/20 08:07 Risperidone (RisperDAL) 1 mg BEDTIME ORAL 05/20/20 21:00 07/04/20 20:59 06/01/20 20:46 Zolpidem Tartrate (Ambien) 5 mg HSPRN PRN ORAL Insomnia 05/31/20 19:30 06/07/20 19:29 Neurological/Psychiatric: Reports: anxiety, depressed, emotional problems; Denies: no symptoms, headache, numbness, paresthesia, pre-existing deficit, seizure, tingling, tremors, weakness, other Allergies: Coded Allergies: No Known Allergies (Unverified , 05/17/20) Objective Data Height (Feet): 5 Height (Inches): 6.00 Weight (Pounds): 130 General Appearance: no apparent distress, alert, alert oriented x3 Appearance: no abnormalities noted Additional Comments: Mood is disoriented to situation. Mood is neutral to anxious. Affect is constricted, congruent with mood. Thought process is concrete. Thought content, no suicidal or homicidal ideation. Cognition is impaired. Insight and judgment is impaired. ASSESSMENT: Eden I Acute toxic encephalopathy due to UTI and pneumonia. Schizophrenia. Eden II Deferred. Eden III Seizure, UTI, and pneumonia. Eden IV Low. Eden V 20. PLAN: 1. Low-dose of antipsychotics. 2. Ativan p.r.n. 3. We will continue to follow and readjust the medications. Assessment/Plan Status: progressing - progressing spoke with . patient not on antipsychotics prior to hosp. therefore nokt n.m.s. metabolic encephalopathy Ana Lopez MD Jun 01, 2020 23:09
[2020-06-02 04:00] VITALS: BP 123/77
[2020-06-02 06:48] LABS: BASOPHILS % (AUTO) 0.4 % (0.0-2.0); EOSINOPHILS % (AUTO) 2.6 % (0.0-3.0); HEMATOCRIT 26.9 % (37.0-47.0); HEMOGLOBIN 8.3 G/DL (12.0-16.0); LYMPHOCYTES % (AUTO) 10.4 % (20.0-45.0); MEAN CORPUSCULAR VOLUME 73 FL (80-99); MONOCYTES % (AUTO) 6.3 % (1.0-10.0); NEUTROPHILS % (AUTO) 80.3 % (45.0-75.0); PLATELET COUNT 624 K/UL (150-450); RED BLOOD COUNT 3.67 M/UL (4.20-5.40); RED CELL DISTRIBUTION WIDTH 24.3 % (11.6-14.8); WHITE BLOOD COUNT 13.1 K/UL (4.8-10.8)
--- NOTE | 2020-06-02 06:54 | NUR ---
HAND-OFF: Report given to Hector Calderon RN.
[2020-06-02 07:11] LABS: ANION GAP 6 mmol/L (5-15); BLOOD UREA NITROGEN 10 mg/dL (7-18); CALCIUM 8.8 MG/DL (8.5-10.1); CARBON DIOXIDE 30 MMOL/L (21-32); CHLORIDE 103 MMOL/L (98-107); CREATININE 0.6 MG/DL (0.55-1.30); POTASSIUM 3.6 MMOL/L (3.5-5.1); SODIUM 138 MMOL/L (136-145)
--- NOTE | 2020-06-02 07:19 | General Progress Note ---
Subjective ROS Limited/Unobtainable: No Allergies: Coded Allergies: No Known Allergies (Unverified , 05/17/20) Objective Last 24 Hour Vital Signs Date Time Temp Pulse Resp B/P (MAP) Pulse Ox O2 Delivery O2 Flow Rate FiO2 06/02/20 04:00 98.9 74 18 123/77 (92) 96 06/02/20 02:18 97.5 06/01/20 20:09 Room Air 06/01/20 19:31 97.5 87 18 148/84 (105) 98 06/01/20 16:00 97.5 80 18 140/68 (92) 97 06/01/20 12:00 97.6 85 17 130/70 (90) 96 06/01/20 09:00 Room Air 06/01/20 08:00 98.0 94 18 134/76 (95) 94 Intake and Output 06/01/20 06/02/20 19:00 07:00 Intake Total 300 ml Balance 300 ml Intake Oral 300 ml # Voids 3 3 Laboratory Tests 06/01/20 08:50: White Blood Count 14.2H, Red Blood Count 3.67L, Hemoglobin 8.3L, Hematocrit 26.8L, Mean Corpuscular Volume 73L, Mean Corpuscular Hemoglobin 22.6L, Mean Corpuscular Hemoglobin Concent 30.9L, Red Cell Distribution Width 24.2H, Platelet Count 612H, Mean Platelet Volume 5.5L, Neutrophils (%) (Auto) 80.8H, Lymphocytes (%) (Auto) 10.3L, Monocytes (%) (Auto) 6.3, Eosinophils (%) (Auto) 1.8, Basophils (%) (Auto) 0.8, Sodium Level 137, Potassium Level 3.7, Chloride Level 104, Carbon Dioxide Level 29, Anion Gap 4L, Blood Urea Nitrogen 10, C reatinine 0.6, Estimat Glomerular Filtration Rate > 60, Glucose Level 101, Calcium Level 8.5 06/02/20 05:10: White Blood Count 13.1H, Red Blood Count 3.67L, Hemoglobin 8.3L, Hematocrit 26.9L, Mean Corpuscular Volume 73L, Mean Corpuscular Hemoglobin 22.5L, Mean Corpuscular Hemoglobin Concent 30.7L, Red Cell Distribution Width 24.3H, Platelet Count 624H, Mean Platelet Volume 5.6L, Neutrophils (%) (Auto) 80.3H, Lymphocytes (%) (Auto) 10.4L, Monocytes (%) (Auto) 6.3, Eosinophils (%) (Auto) 2.6, Basophils (%) (Auto) 0.4, Sodium Level [Pending], Potassium Level [Pending], Chloride Level [Pending], Carbon Dioxide Level [Pending], Blood Urea Nitrogen [Pending], Creatinine [Pending], Estimat Glomerular Filtration Rate [Pending], Glucose Level [Pending], Calcium Level [Pending] Height (Feet): 5 Height (Inches): 6.00 Weight (Pounds): 130 General Appearance: no apparent distress EENT: normal ENT inspection Neck: supple Cardiovascular: normal rate Respiratory/Chest: decreased breath sounds Abdomen: normal bowel sounds, non tender, soft Extremities: non-tender Assessment/Plan Status: progressing - progressing spoke with . patient not on antip sychotics prior to hosp. therefore nokt n.m.s. 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
--- NOTE | 2020-06-02 07:20 | NUR ---
NURSE NOTES: Handoff received from Myrtle CONTRERAS. Patient is awake and AxO 2-3. Patient's right hand IV is intact and saline locked. Purewick is draining to suction. Bed is low and locked, side rails up x2, call light is within reach.
[2020-06-02 08:00] VITALS: BP 126/86
--- NOTE | 2020-06-02 11:44 | Infectious Diseases Prog Note ---
Assessment/Plan Assessment/Plan antibiotics : none A 1. gram positive UTI s/p rx 2. pneumonia s/p rx 3. seizures 4. leucocytosis improving 5. schizophrenia 6. abdominal malignancy P 1. observe off antibiotics 2. will follow up cultures Subjective ROS Limited/Unobtainable: Yes Allergies: Coded Allergies: No Known Allergies (Unverified , 05/17/20) Objective Last 24 Hour Vital Signs Date Time Temp Pulse Resp B/P (MAP) Pulse Ox O2 Delivery O2 Flow Rate FiO2 06/02/20 09:00 Room Air 06/02/20 08:00 98.0 76 18 126/86 (99) 96 06/02/20 04:00 98.9 74 18 123/77 (92) 96 06/02/20 02:18 97.5 06/01/20 20:09 Room Air 06/01/20 19:31 97.5 87 18 148/84 (105) 98 06/01/20 16:00 97.5 80 18 140/68 (92) 97 06/01/20 12:00 97.6 85 17 130/70 (90) 96 Height (Feet): 5 Height (Inches): 6.00 Weight (Pounds): 130 Respiratory/Chest: lungs clear Cardiovascular: normal rate, regular rhythm, no gallop/murmur Abdomen: soft, non tender Extremities: no edema Laboratory Tests Test 06/02/20 05:10 White Blood Count 13.1 K/UL (4.8-10.8) H Red Blood Count 3.67 M/UL (4.20-5.40) L Hemoglobin 8.3 G/DL (12.0-16.0) L Hematocrit 26.9 % (37.0-47.0) L Mean Corpuscular Volume 73 FL (80-99) L Mean Corpuscular Hemoglobin 22.5 PG (27.0-31.0) L Mean Corpuscular Hemoglobin Concent 30.7 G/DL (32.0-36.0) L Red Cell Distribution Width 24.3 % (11.6-14.8) H Platelet Count 624 K/UL (150-450) H Mean Platelet Volume 5.6 FL (6.5-10.1) L Neutrophils (%) (Auto) 80.3 % (45.0-75.0) H Lymphocytes (%) (Auto) 10.4 % (20.0-45.0) L Monocytes (%) (Auto) 6.3 % (1.0-10.0) Eosinophils (%) (Auto) 2.6 % (0.0-3.0) Basophils (%) (Auto) 0.4 % (0.0-2.0) Sodium Level 138 MMOL/L (136-145) Potassium Level 3.6 MMOL/L (3.5-5.1) Chloride Level 103 MMOL/L (98-107) Carbon Dioxide Level 30 MMOL/L (21-32) Anion Gap 6 mmol/L (5-15) Blood Urea Nitrogen 10 mg/dL (7-18) Creatinine 0.6 MG/DL (0.55-1.30) Estimat Glomerular Filtration Rate > 60 mL/min (>60) Glucose Level 93 MG/DL (74-106) Calcium Level 8.8 MG/DL (8.5-10.1) Current Medications Medications (Trade) Dose Ordered Sig/Laura Route PRN Reason Start Time Stop Time Status Last Admin Dose Admin Acetaminophen (Tylenol) 650 mg Q4H PRN ORAL Mild Pain (Pain Scale 1-3) 05/17/20 18:45 06/16/20 18:44 06/02/20 01:46 Al Hydroxide/Mg Hydroxide (Mylanta) 30 ml Q6H PRN ORAL heartburn 05/17/20 18:45 06/16/20 18:44 Clonidine HCl (Catapres Tab) 0.1 mg Q4H PRN ORAL For High Blood Pressure 05/18/20 19:00 08/16/20 18:59 05/30/20 04:01 Levetiracetam (Keppra) 500 mg Q12HR ORAL 05/17/20 21:00 07/01/20 20:59 06/02/20 08:07 Pantoprazole (Protonix) 40 mg DAILY ORAL 05/18/20 09:00 06/17/20 08:59 06/02/20 08:07 Risperidone (RisperDAL) 1 mg BEDTIME ORAL 05/20/20 21:00 07/04/20 20:59 06/01/20 20:46 Zolpidem Tartrate (Ambien) 5 mg HSPRN PRN ORAL Insomnia 05/31/20 19:30 06/07/20 19:29 06/02/20 01:45 Melvin Rabago MD Jun 02, 2020 11:44
[2020-06-02 12:00] VITALS: BP 132/83
--- NOTE | 2020-06-02 12:46 | General Progress Note ---
Subjective Allergies: Coded Allergies: No Known Allergies (Unverified , 05/17/20) Subjective overall same confused no distress d/w surgery sister would like hospice Objective Last 24 Hour Vital Signs Date Time Temp Pulse Resp B/P (MAP) Pulse Ox O2 Delivery O2 Flow Rate FiO2 06/02/20 09:00 Room Air 06/02/20 08:00 98.0 76 18 126/86 (99) 96 06/02/20 04:00 98.9 74 18 123/77 (92) 96 06/02/20 02:18 97.5 06/01/20 20:09 Room Air 06/01/20 19:31 97.5 87 18 148/84 (105) 98 06/01/20 16:00 97.5 80 18 140/68 (92) 97 Intake and Output 06/01/20 06/02/20 19:00 07:00 Intake Total 300 ml Balance 300 ml Intake Oral 300 ml # Voids 3 3 Laboratory Tests 06/02/20 05:10: White Blood Count 13.1H, Red Blood Count 3.67L, Hemoglobin 8.3L, Hematocrit 26.9L, Mean Corpuscular Volume 73L, Mean Corpuscular Hemoglobin 22.5L, Mean Corpuscular Hemoglobin Concent 30.7L, Red Cell Distribution Width 24.3H, Platelet Count 624H, Mean Platelet Volume 5.6L, Neutrophils (%) (Auto) 80.3H, Lymphocytes (%) (Auto) 10.4L, Monocytes (%) (Auto) 6.3, Eosinophils (%) (Auto) 2.6, Basophils (%) (Auto) 0.4, Sodium Level 138, Potassium Level 3.6, Chloride Level 103, Carbon Dioxide Level 30, Anion Gap 6, Blood Urea Nitrogen 10, Creatinine 0.6, Estimat Glomerular Filtration Rate > 60, Glucose Level 93, Calcium Level 8.8 Height (Feet): 5 Height (Inches): 6.00 Weight (Pounds): 130 Objective WDWN NAD clear breath sounds bilaterally without rhonchi or wheeze [id number] without MRG NABS nontender no HSM no CCE confused reduced ROM Assessment/Plan Assessment/Plan: schizophrenia seizure toxic met encephalopathy elevated WBC possible pneumonia possible uti EEG with diffuse slowing colonic mass- poorly differentiated adenoca SWITCH MAKER malignancy possible PLAN surgery recommendations noted no plans for surgery ID noted watch 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
--- NOTE | 2020-06-02 12:50 | NUR ---
NURSE NOTES: Per Dr. Fajardo, patient to continue hospital meds and ok to DC her IV for discharge.
--- NOTE | 2020-06-02 14:29 | NUR ---
*-*DISCHARGE PLANNED*-* PATIENT HAS BEEN ACCEPTED AND WILL BE DISCHARGED BACK TO: [facility] P: [phone] FOR NURSE TO NURSE REPORT ROOM# 112.[facility] SET FOR WILL CALL [phone].
--- NOTE | 2020-06-02 14:35 | NUR ---
NURSE NOTES: COVID swab collected and sent to the lab.
--- NOTE | 2020-06-02 15:55 | NUR ---
NURSE NOTES: Per MD, send a list of hospital medications to [facility] and care with patient.
[2020-06-02 16:00] VITALS: BP 127/83
--- NOTE | 2020-06-02 17:16 | NUR ---
*-*DISCHARGE PLANNED*-* PATIENT HAS BEEN ACCEPTED AND WILL BE DISCHARGED BACK TO: [facility] P: [phone] FOR NURSE TO NURSE REPORT ROOM# 112.[facility] SET FOR 0 THROUGH [facility] S/W PATIENTS SISTER RUBÉN PH:[phone], WHO IS IN AGREEMENT WITH DISCHARGE PLAN.
--- NOTE | 2020-06-02 17:43 | Surgery Progress Note ---
Surgery Progress Note Subjective Symptoms: passing flatus Additional Comments discussed with patient, pcp, and primary at [facility] for d/c to care facility with outpatient f[place] [facility] for multidisciplinary corrugator operator helper/onc surgery team eval and plan Objective Last 24 Hour Vital Signs Date Time Temp Pulse Resp B/P (MAP) Pulse Ox O2 Delivery O2 Flow Rate FiO2 06/02/20 12:00 98.7 82 18 132/83 (99) 96 06/02/20 09:00 Room Air 06/02/20 08:00 98.0 76 18 126/86 (99) 96 06/02/20 04:00 98.9 74 18 123/77 (92) 96 06/02/20 02:18 97.5 06/01/20 20:09 Room Air 06/01/20 19:31 97.5 87 18 148/84 (105) 98 I&O Intake and Output 06/01/20 06/02/20 19:00 07:00 Intake Total 300 ml Balance 300 ml Intake Oral 300 ml # Voids 3 3 Cardiovascular: RSR Respiratory: clear Abdomen: soft, flat, non-tender, present bowel sounds Extremities: no tenderness, no cyanosis Laboratory Tests Test 06/02/20 05:10 White Blood Count 13.1 K/UL (4.8-10.8) H Red Blood Count 3.67 M/UL (4.20-5.40) L Hemoglobin 8.3 G/DL (12.0-16.0) L Hematocrit 26.9 % (37.0-47.0) L Mean Corpuscular Volume 73 FL (80-99) L Mean Corpuscular Hemoglobin 22.5 PG (27.0-31.0) L Mean Corpuscular Hemoglobin Concent 30.7 G/DL (32.0-36.0) L Red Cell Distribution Width 24.3 % (11.6-14.8) H Platelet Count 624 K/UL (150-450) H Mean Platelet Volume 5.6 FL (6.5-10.1) L Neutrophils (%) (Auto) 80.3 % (45.0-75.0) H Lymphocytes (%) (Auto) 10.4 % (20.0-45.0) L Monocytes (%) (Auto) 6.3 % (1.0-10.0) Eosinophils (%) (Auto) 2.6 % (0.0-3.0) Basophils (%) (Auto) 0.4 % (0.0-2.0) Sodium Level 138 MMOL/L (136-145) Potassium Level 3.6 MMOL/L (3.5-5.1) Chloride Level 103 MMOL/L (98-107) Carbon Dioxide Level 30 MMOL/L (21-32) Anion Gap 6 mmol/L (5-15) Blood Urea Nitrogen 10 mg/dL (7-18) Creatinine 0.6 MG/DL (0.55-1.30) Estimat Glomerular Filtration Rate > 60 mL/min (>60) Glucose Level 93 MG/DL (74-106) Calcium Level 8.8 MG/DL (8.5-10.1) Plan Problems: (1) Rectal mass Assessment & Plan: 44F rectal mass. tolerating diet not obstructed corrugator operator helper input noted onc input noted tumor markers unfortunately not resectable given CT findings. neoadjuvant tx spoke with patient and sister in detail today. given history. incarcerated nursing home for 1 year. blood in stool noted while incarcerated. released and told to get colonoscopy. covid began and took a long time to get eval after. went to outside facility and noted large hepatic flexure cancer near obstructive. spoke with patient and sister. spoke with gi and pcp and oncology. tho she is not completely obstructed she is very close and scope noted prior near obstructing. potential for emergency obstructing as abd and ct demonstrated proximal area noted. considerations for diversion. but given large ovarian pathology as well potential malignant vs benign. will cont to discuss with patient and medical teams about care plan. imaging reviewed discussed with team appreciate psych input spoke with patient at length at bedside. i explained to her current condition and findings. we discussed potential care plans. patient is under the belief that if she has surgery she will be cured as this may have been misinterpreted by her prior. i explained in depth her condition, colonic tumor size pathology etc and as well large ovarian pathology. i explained purpose of surgery in case she becomes obstructed as palliative means. she seemed to understand and was somewhat distant after clearly explaining to her this. in discussing palliative measures she stated that if therapy is not with alf outcome she is not interested. she would like surgery if curative but needs to think further about surgery otherwise. called sister at patients request and to keep her informed but no answer today. currently tolerating diet and still having bowel function. not currently obstructed discussed with patient, pcp, and primary at [facility]pt of public health plan for d/c to care facility with outpatient f/[place] [facility] for multidisciplinary corrugator operator helper/onc surgery team eval and plan Chest: Atelectatic changes are seen at both lung bases. There may also be some hazy consolidation of portions of both lower lobes. No effusion. No dense consolidation. The upper lobes are clear as is the right middle lobe. The heart size is normal. No pericardial effusion. No mediastinal or hilar mass or adenopathy. The left thyroid lobe is enlarged, with a dominant nodule that measures at least 3.7 cm in diameter. There is also calcified nodule in the left thyroid lobe lower pole. No axillary or chest wall mass or adenopathy. The esophagus is unremarkable. Abdomen pelvis: There is a large midline pelvic cystic mass which measures 21.4 cm transverse by 10 cm AP by 16.2 cm craniocaudad. This appears to be largely unilocular, but the coronal images suggest 2 small locules on the inferior border of either side. It is thin-walled This is in the midline anterior to the uterus and above the dome of the bladder. No pelvic adenopathy is demonstrated. There is some infiltration of the presacral fat. There is a very large mass which appears to be centered in the lumen of the ascending colon. This demonstrates heterogeneous and enhancement with some areas of low-attenuation. This measures 11.8 cm AP by 9 cm transverse by 10.6 cm craniocaudad. There is evidence of infiltration of the serosal fat. There is some thickening of the wall of these hepatic flexure and proximal transverse colon distal to this. The cecum and ascending colon proximal to this are slightly distended, fluid-filled. There is no small bowel distention, although ingested contrast has not traversed the entirety of the small bowel. There are a few prominent regional mesenteric lymph nodes. There is infiltration of the presacral fat. No evidence of diverticulosis or diverticulitis. No small bowel wall thickening. No free or loculated intraperitoneal gas or fluid is evident. No definite solid liver lesion Subcentimeter low-attenuation lesion is seen at the junction of segments 4A and 4B within the liver. Another is seen in segment 2. The gallbladder contains gallstones. There is no biliary ductal dilatation. The pancreas, spleen, adrenals, kidneys are all unremarkable. No retroperitoneal mass or adenopathy. There is diffuse mild edema of the subcutaneous fat. The bones are unremarkable. IMPRESSION: 11.8 x 9 x 10.6 cm heterogeneous mass centered in the lumen of the ascending colon, highly suspicious for primary colon malignancy. There is suggestion of serosal invasion and there are a few prominent nonspecific regional nodes present. There is very mild distention of the colon proximal to this 21.4 10 x 16.2 cm anterior midline cystic pelvic mass. Although largely thin- walled and demonstrating only 2 small locules, the size is worrisome for gynecological malignancy. The technologist notes describes history of ovarian carcinoma. Correlate with of clinical history Nonspecific infiltration of the presacral fat 3.7 cm left lobe thyroid nodule. Consider further evaluation with sonography Basilar pulmonary parenchymal atelectasis and possibly some lower lobe hazy consolidation Subcentimeter low-attenuation liver lesions, too small to characterize Cholelithiasis (2) UTI (urinary tract infection) (3) Altered mental status (4) Opiate use (5) Seizure-like activity (6) Anemia Sandor Fuentes Jun 02, 2020 17:43
[2020-06-02] MEDS ORDERED: ACETAMINOPHEN325 M1 ORAL (18:31)
[2020-06-02] MEDS ORDERED: MYLANTA30 M1 PO (18:33)
[2020-06-02] MEDS ORDERED: CLONIDINE0.1 MG PO (18:33)
[2020-06-02] MEDS ORDERED: PANTOPRAZOLE SO40 MG ORAL (18:34)
[2020-06-02] MEDS ORDERED: KEPPRA500 M4 ORAL (18:34)
[2020-06-02] MEDS ORDERED: RISPERIDONE1 MG ORAL (18:35)
[2020-06-02] MEDS ORDERED: ZOLPIDEM TARTRAT5 MG ORAL (18:35)
--- NOTE | 2020-06-02 19:30 | NUR ---
NURSE HAND-OFF: Important Events on Shift:[dc order] Patient Status: stable Diet: reg mech soft Pending Orders: Pending Results/Labs: Pending MD notification: Latest Vital Signs: Temperature 97.7 , Pulse 90 , B/P 142 /84 , Respiratory Rate 20 , O2 SAT 94 , Room Air, O2 Flow Rate . Vital Sign Comment: stable Latest Funez Fall Score: 50 Fall Risk: High Risk Safety Measures: Call light Within Reach, Bed Alarm Zone 1, Side Rails Side Rails x2, Bed position Low and Locked. Fall Precautions: Yellow Socks Yellow Gown Door Sign Patient Fall Education Report given to Deann CONTRERAS.
--- NOTE | 2020-06-02 19:30 | NUR ---
NURSE NOTES: Received patient in no apparent distress. A&OX3. IV site patent and intact. Patient is waiting for discharge. Bed in lowest position. Call light within reach. Will continue to monitor.
[2020-06-02 20:00] VITALS: BP 142/84
--- NOTE | 2020-06-02 20:05 | NUR ---
NURSE NOTES: Patient discharged to [facility] with stable condition. IV and ID band removed. All belonging were sent with patient. Picked up by ambulance staff.
--- NOTE | 2020-06-02 23:07 | Psychiatric Progress Note ---
Psychiatry Progress Note Psychiatry Progress Note Subjective the pt has no agitation. the pt is calm poor cognition Neurological/Psychiatric: Reports: anxiety, depressed, emotional problems; Denies: no symptoms, headache, numbness, paresthesia, pre-existing deficit, seizure, tingling, tremors, weakness, other Allergies: Coded Allergies: No Known Allergies (Unverified , 05/17/20) Objective Data Height (Feet): 5 Height (Inches): 6.00 Weight (Pounds): 130 General Appearance: no apparent distress Appearance: no abnormalities noted Additional Comments: Mood is disoriented to situation. Mood is neutral to anxious. Affect is constricted, congruent with mood. Thought process is concrete. Thought content, no suicidal or homicidal ideation. Cognition is impaired. Insight and judgment is impaired. ASSESSMENT: Kings[place] I Acute toxic encephalopathy due to UTI and pneumonia. Schizophrenia. Kings[place] II Deferred. Kings[place] III Seizure, UTI, and pneumonia. Kingsland IV Low. Kingsland V 20. PLAN: 1. Low-dose of antipsychotics. 2. Ativan p.r.n. 3. We will continue to follow and readjust the medications. Ana Lopez MD Jun 02, 2020 23:07
--- NOTE | 2020-06-03 09:22 | Discharge Summary ---
Discharge Summary Discharge Summary _ DATE OF ADMISSION: 05/17/2020 DATE OF DISCHARGE: 06/02/2020 DISCHARGED BY: Dr. Fajardo REASON FOR ADMISSION: 44 years old female with past medical history of schizophrenia , presented for evaluation due to seizure-like activity. Paramedics [facility]. Patient was somnolent and difficult to arouse in the morning , according to the staff. In the room she was clenching her fist and then had a brief , 1 minute , episode of convulsion-like behavior, mostly in the upper extremities. No trauma was recorded. She was somnolent and lethargic , following the shaking. No incontinence. No prior history of seizure. No reported alcohol or drug use. Upon evaluation in emergency department vital signs were stable. Laboratory work-up revealed leukocytosis with WBC 14.7 , hemoglobin 10.2 ,hematocrit 34.7. Platelet count 495. Stable electrolytes and renal parameters. Glucose 124. Stable LFT Troponin - 0.007. EKG revealed sinus rhythm no acute ischemic changes. Urinalysis revealed +2 leukocyte esterase, borderline pyuria and few bacteria. Urine toxicology screen was positive for opiates . CT of the head revealed no acute intracranial pathology Patient received Keflex for possible UTI , Keppra, one liter of IV fluids and admitted for further management. CONSULTANTS: neurologist Dr. Glover ID specialist Dr. Rabago GI specialist Dr. Ruffin BILLIARD TABLE ASSEMBLER Dr. Billings outsole paraffiner/oncologist Dr. Velasquez surgery Dr. Fuentes psychiatrist [facility] COURSE: Patient admitted initially to monitored floor. Seizure precaution maintained . Patient started on Keppra . Ativan was on board as needed for breakthrough seizure. Neurologist seen and evaluated patient. Patient undergone EEG/ which revealed encephalopathy of moderate degrees. According to neurologist patient had metabolic encephalopathy, related to infectious process. Serotonin syndrome was unlikely as well as malignant neuroleptic syndrome. Neurologist recommended continue Keppra along with strict aspiration precaution . Calcium and magnesium levels stable. Initial CK 1256 , trended down to 116 with aggressive IV hydration. Chest x-ray revealed left basilar infiltrate and atelectasis . Patient started on antibiotic for possible anemia. Urine culture revealed gram-positive cocci. Blood cultures were negative . Rapid COVID-19 came back negative. Patient completed treatment for UTI and pneumonia. ID specialist recommended to observe patient off antibiotics. WBC trending down. Hemoglobin and hematocrit were closely monitored with goal to keep hemoglobin above 7 . Stool for occult blood was positive . CT scan of the chest , abdomen and pelvis which revealed 11.8 x 9 x 10.6 cm heterogeneous mass centered in the lumen of the ascending colon, highly suspicious for primary colon malignancy. There was suggestion of serosal invasion and there were few prominent nonspecific regional nodes present. Also noted anterior midline cystic pelvic mass with size worrisome for gynecological malignancy. Basilar pulmonary parenchymal atelectasis and possibly some lower lobe hazy consolidation. Cholelithiasis. [facility] specialist recommended urgent follow-up with [facility] oncology. Cancer tumor markers, including alpha-fetoprotein, CA 19-9, CA 125, CA 15-3 all within normal limits. CEA elevated 6.4. It was found, that patient undergone EGD and colonoscopy on 04/21 at [facility]. Biopsy revealed poorly differentiated adenocarcinoma with locally advanced and metastatic disease based on size and imaging. Proximal bowel dilation concerning for significant luminal narrowing by tumor. Imaging suggestive of separate cystic pelvic neoplasm , possibly [facility] . Also noted 3.7 cm thyroid nodule and gallstones . Surgeon seen and evaluated patient. Patient was able to tolerate diet and remained non-obstructed. Given CT findings , the mass was not resectable. Surgeon recommended neoadjuvant therapy. Surgeon spoke with patient and her sister , explained findings, and recommended discharge to outpatient disposition with outpatient follow-up with [facility] for multidisciplinary [facility]/oncology , surgery team evaluation and further plan of care. Oncologist also seen and evaluated patient. Patient was on IV iron , given very low ferritin . Psychiatric medication regimen optimized as per psychiatrist. Pain management was addressed as needed . Supportive care provided . DVT and GI prophylaxis provided. Patient clinically stabilized and was ready for discharge to [facility] for continuation of care with outpatient follow-up as recommended. FINAL DIAGNOSES: Colon mass in ascending colon/poorly differentiated adenocarcinoma Pelvic mass , presumed malignant Pneumonia,status post treatment UTI , status post treatment Metabolic encephalopathy Seizure-like activity Opiate use Thyroid nodule Gallstones Schizophrenia Iron deficiency anemia DISCHARGE MEDICATIONS: See Medication Reconciliation list. DISCHARGE INSTRUCTIONS: Patient was discharged to the [facility] facility. Follow up with medical doctor at the facility. I have been assigned to dictate discharge summary for this account. I was not involved in the patient's management. Adelaide Valle NP Jun 03, 2020 09:22
--- NOTE | 2020-06-03 11:48 | NUR ---
[employer]/ DC SUMMARY/INSTRUCTIONS FAXED TO [facility] (06/01-06/02) [facility] P [phone] F [phone]
== END 2020-06-02 20:05 | DRG 139 ==
LOC: EDBD 08:23 → EMR 08:45 → 3E 13:38 → EDBEDREQ 13:58 → EDBEDREQSVC 14:36 → EDBEDREQ 14:38 → 2E 15:32 → 2W 16:49 → 2E 16:57 → 4E 05-21 11:26
DX: J18.9 Pneumonia, unspecified organism (principal); R56.9 Unspecified convulsions; G93.41 Metabolic encephalopathy; B96.89 Other specified bacterial agents as the cause of diseases classified elsewhere; F20.9 Schizophrenia, unspecified; F11.90 Opioid use, unspecified, uncomplicated; C18.2 Malignant neoplasm of ascending colon; C76.3 Malignant neoplasm of pelvis; N39.0 Urinary tract infection, site not specified; D50.9 Iron deficiency anemia, unspecified; K80.80 Other cholelithiasis without obstruction; E04.1 Nontoxic single thyroid nodule; J98.11 Atelectasis
CPT/HCPCS: 36415; 70450; 71045; 71260; 74018; 74177; 80048; 80053; 80202; 80307; 81003; 81025; 82105; 82270; 82378; 82550; 82728; 82746; 83540; 83550; 83735; 84484; 85007; 85025; 85610; 86300; 86304; 87040; 87081; 87086; 93005; 95819; 96361; 96374; 99285; G0480; J7030; U0002